=== PATIENT | male | born 1980 | race Caucasian/White ===

== ENCOUNTER 2018-06-25 08:10 | Inpatient (IN) | payer BC, OTHER ==
[~2018-06-25] VITALS: Ht 175.3 cm; Wt 91.9 kg
[2018-06-25] VITALS (17 sets, daily range): BP systolic 90–116; BP diastolic 40–77; PULSE 87–113; RESP 15–32; Ht 175.3 cm; Wt 91.9 kg
[~2018-06-25 08:10] MED LIST: ETOMIDATE 20 MG INJ ONE; SUCCINYLCHOLINE CHLORIDE 100 MG/5 ML SYG IV ONE
[2018-06-25] MEDS ORDERED: NALOXONE (0.4 MG/ML) INJ ONE (08:15)
[2018-06-25] MEDS ORDERED: SOD CHLORIDE 0.9% 1,000 ML IV STA (08:16)
[2018-06-25] MEDS ORDERED: ONDANSETRON 4 MG INJ IV STA (08:16)
[2018-06-25] MEDS ORDERED: LEVETIRACETAM 1000 MG (PMX) 100 ML IVPB STA (08:18)
[2018-06-25] MEDS ORDERED: NALOXONE (0.4 MG/ML) INJ IV ONE (08:30)
[2018-06-25] MEDS ORDERED: LORAZEPAM 2 MG INJ ONE (08:44)
--- NOTE | 2018-06-25 08:57 | ERD ---
ER Documentation Chief Complaint Chief Complaint found altered in garage by spouse HPI This a 38-year-old male who was found by his in the garage unconscious on the floor. It is unknown how long the patient was there. Patient had drug paraphernalia laying around him. The patient was completely unresponsive with pinpoint pupils and he was given Narcan by paramedics. The patient then became a bit more agitated pupils enlarged. EMS reports there was emesis next to him on the floor. There is no other history given. ROS All systems reviewed and are negative except as per history of present illness. Medications Home Meds No Active Prescriptions or Reported Meds Allergies Allergies: Coded Allergies: No Known Allergy (Unverified , 06/25/18) PMhx/Soc Medical and Surgical Hx: Unable to obtain Hx Psychiatric Problems: Yes (anxiety) Hx Alcohol Use: No (unknown) Hx Substance Use: Yes (marijuana) Hx Tobacco Use: No (unknown) Smoking Status: Unknown if ever smoked FmHx Family History: No coronary disease Physical Exam Vitals Vital Signs Date Temp Pulse Resp B/P (MAP) Pulse Ox O2 O2 Flow FiO2 Time Delivery Rate 06/25/18 63 24 137/87 93 Non 15.0 10:02 (104) Rebreather 06/25/18 85.1 77 30 125/40 93 Non 15.0 09:45 (68) Rebreather 06/25/18 85.0 80 32 88/53 (65) 93 09:30 06/25/18 84 32 88/53 (65) 93 Non 15.0 09:30 Rebreather 06/25/18 81 30 151/130 92 Non 15.0 09:00 (137) Rebreather 06/25/18 97.2 63 30 79/67 (71) 100 08:30 06/25/18 Non 15 08:15 Rebreather 06/25/18 Non 15.0 08:15 Rebreather Physical Exam Const: Well-developed, well-nourished Head: Atraumatic, normocephalic Eyes: Normal Conjunctiva, PERRLA, EOMI, normal sclera, no nystagmus ENT: Normal External Ears, Nose and Mouth, moist mucus membranes. Neck: Full range of motion. No meningismus, no lymphadenopathy. Resp: Clear to auscultation bilaterally, no wheezing, rhonchi, rales Cardio: Regular rate and rhythm, no murmurs, S1 S2 present Abd: Soft, non distended. Normal bowel sounds, no pulsitile abdominal masses or bruits Skin: No petechiae or rashes, no ecchymosis , no maculopapular rash Back: Normal inspection] Ext: No cyanosis, or edema, FROM x 3, normal inspection, neurovascularly intact x 4 Neur: Patient has his eyes open and is moaning, his left upper extremity has a rhythmic twitching with his left leg, he is moving his right leg on occasion but his right arm has no movement at all.] Psych: Unable to assess Result Diagram: 06/25/18 0820 06/25/18 0820 Results 24 hrs Laboratory Tests Test 06/25/18 04:21 06/25/18 08:20 06/25/18 09:04 Urine Opiates Screen Positive Urine Barbiturates Negative Urine Amphetamines Screen Negative Urine Benzodiazepines Screen Positive Urine Cocaine Screen Positive Urine Cannabinoids Positive White Blood Count 22.1 10^3/ul Red Blood Count 4.38 10^6/ul Hemoglobin 13.7 g/dl Hematocrit 41.7 % Mean Corpuscular Volume 95.2 fl Mean Corpuscular Hemoglobin 31.3 pg Mean Corpuscular 32.9 g/dl Hemoglobin Concent Red Cell Distribution Width 14.1 % Platelet Count 303 10^3/UL Mean Platelet Volume 10.3 fl Immature Granulocytes % 1.900 % Neutrophils % 82.6 % Lymphocytes % 11.9 % Monocytes % 2.4 % Eosinophils % 0.8 % Basophils % 0.4 % Nucleated Red Blood Cells % 0.0 /100WBC Immature Granulocytes # 0.410 10^3/ul Neutrophils # 18.3 10^3/ul Lymphocytes # 2.6 10^3/ul Monocytes # 0.5 10^3/ul Eosinophils # 0.2 10^3/ul Basophils # 0.1 10^3/ul Nucleated Red Blood Cells # 0.0 10^3/ul Prothrombin Time 14.4 Sec Prothrombin Time Ratio 1.1 INR International 1.10 Normalized Ratio Activated Partial Thromboplast 41.2 Sec Time Sodium Level 142 mmol/L Potassium Level 5.2 mmol/L Chloride Level 100 mmol/L Carbon Dioxide Level 23 mmol/L Anion Gap 19 Blood Urea Nitrogen 21 mg/dl Creatinine 2.05 mg/dl Est Glomerular Filtrat 37 mL/min Rate mL/min Glucose Level 145 mg/dl Calcium Level 8.8 mg/dl Total Bilirubin 0.7 mg/dl Direct Bilirubin 0.00 mg/dl Indirect Bilirubin 0.7 mg/dl Aspartate Amino 88 IU/L Transf (AST/SGOT) Alanine 64 IU/L Aminotransferase (ALT/SGPT) Alkaline Phosphatase 114 IU/L Creatine Kinase 709 IU/L Creatine Kinase Index 1.4 Creatinine Kinase MB (Mass) 10.10 ng/ml Troponin I 0.148 ng/ml Total Protein 7.5 g/dl Albumin 4.5 g/dl Globulin 3.00 g/dl Albumin/Globulin Ratio 1.50 Ethyl Alcohol Level < 10.0 mg/dl Bedside Glucose 140 mg/dL Current Medications Medications Dose Sig/Velia Start Time Status Last (Trade) Ordered Route PRN Stop Time Admin Dose Reason Admin Sodium 1,000 ml @ Q1H STAT 06/25/18 DC 06/25/18 Chloride 1,000 mls/hr IV 08:16 08:42 06/25/18 09:15 Ondansetron 4 mg ONCE STAT 06/25/18 DC 06/25/18 HCl (Zofran IV 08:16 08:42 Inj) 06/25/18 08:19 100 ml @ ONCE STAT 06/25/18 DC 06/25/18 Levetiracetam 400 mls/hr IVPB 08:18 08:52 06/25/18 08:32 Naloxone 0.4 mg ONCE ONCE 06/25/18 DC 06/25/18 HCl IV 08:30 08:39 (Narcan) 06/25/18 08:31 Lorazepam 1 mg ONCE ONCE 06/25/18 DC 06/25/18 (Ativan) IV 09:00 08:52 06/25/18 09:01 Lorazepam 2 mg STK-MED 06/25/18 DC (Ativan) ONCE .ROUTE 08:44 06/25/18 08:45 Clindamycin 50 ml @ 50 ONCE IVPB 06/25/18 06/25/18 HCl/ mls/hr 09:30 09:33 Dextrose 06/25/18 10:29 Lorazepam 1 mg ONCE ONCE 18 DC 06/25/18 (Ativan) IV 09:30 09:23 06/25/18 09:31 Aspirin 300 mg ONCE ONCE 06/25/18 DC 06/25/18 (Aspirin) NV 09:30 09:42 06/25/18 09:31 1 mg STK-MED 06/25/18 DC Hydromorphone ONCE .ROUTE 09:45 HCl 06/25/18 (Dilaudid) 09:46 1 mg ONCE STAT 06/25/18 DC 06/25/18 Hydromorphone IV 09:58 10:02 HCl 06/25/18 (Dilaudid) 09:59 Procedures/MDM EKG: Rate/Rhythm: Normal sinus rhythm with nonspecific intraventricular block QRS, ST, QT: NORMAL NV, QRS, QT] Impression: Abnormal EKG Ordering MD: ARTURO TAYLOR DO Location: E/R Room/Bed: PROCEDURE: CT brain without contrast CLINICAL INDICATION: Stroke, found down, unresponsive TECHNIQUE: CT of the brain without contrast was performed on a multidetector CT scanner, with multiplanar reformats. One or more of the following dose reduction techniques were used: Automated exposure control, adjustment in mA and / or kV according to patient size, use of iterative reconstructive technique. CTDIvol = 46 mGy; DLP = 927 mGy-cm. DICOM images are available. COMPARISON: None available FINDINGS: No acute intracranial hemorrhage is identified. No extra-axial fluid collection is seen. There is no mass effect. No midline shift is identified. The ventricles and sulci are within normal limits for size and configuration. The density of the brain appears unremarkable. Moy-white junctions appear preserved. Calvarium and skull base are intact. Mastoid air cells and imaged paranasal sinuses grossly clear. IMPRESSION: No acute intracranial pathology identified. Critical results called to Dr. Taylor at 08:30 a.m., 06/25/2018. RPTAT: VV .Gaston Lopez MD, MD Date Time Electronically viewed and signed by .Gaston Lopez MD, MD on 06/25/2018 08:31 .O/ CC: ARTURO TAYLOR DO [id number] Patient was given Narcan with some slight improvement. He continued to have rhythmic twitching suspecting a head bleed so a stat head CT was done which showed no head bleed. Possible as patient is having a stroke or is not a TPA candidate because we do not know the onset of process as he was last seen last night and found laying in the garage. He was given Keppra and Ativan for seizure precautions treatment We will give a dose of clindamycin to prevent any type of possible aspiration pneumonia Patient's is now here she said she last saw him yesterday around 10 or 11 PM. Then she found him outside laying in the street by the curb this morning. She said that he had recently gone on a daily vacation and that he was in the garage/"man cave" where she left him last night. When asked about drug use she stated that he has dabbled with cocaine in the past. At the patient's creatinine is too high to do a CT angiogram. His CPK, CK-MB and troponin are elevated which is likely from cocaine use as his drug screen is markedly positive for multi-substance abuse. Troponin may be high from elevated CPK/CK-MB's, or vasospasm from cocaine use. I have given him a rectal aspirin. Hold off on Lovenox at this time due to altered mental status possible stroke it may be risky to anticoagulate him at this time His core body temperature is 85, from laying on the cold concrete street last night for hours. He is currently getting a bear hugger At 10:15 AM the patient is becoming more arousable and is able to say his name, look at you when called, but still a bit agitated. Is seen giving the Dilaudid calmed him down and he was likely super agitated from too much Narcan reversing his opioid use. He is clinically improving Will admit to the ICU panel. Critical Care Time: 45 minutes Treatments/Evaluations: Close monitoring and treatment of unstable vital signs, cardiorespiratory, and neurologic status, while maintaining tight balance of fluid, respiratory, and cardiac interventions. This time includes discussing the case with the patient and the patient's family. This time does not include all procedures stated elsewhere in this record. This time also includes reviewing old records, labs and radiological studies. This time includes examining and re- examining the patient. Additionally, this time also includes arranging care with admitting and consulting physicians. Departure Diagnosis: Primary Impression: Altered level of consciousness Additional Impressions: Non-STEMI (non-ST elevated myocardial infarction) Substance abuse Condition: Serious ARTURO TAYLOR DO Jun 25, 2018 08:57
[2018-06-25] MEDS ORDERED: LORAZEPAM 2 MG INJ IV ONE ×2 (09:00→09:30)
[2018-06-25] MEDS ORDERED: CLINDAMYCIN 900 MG/D5W (PMX) 50 ML IVPB SCH (09:30)
[2018-06-25] MEDS ORDERED: ASPIRIN 300 MG SUPP PR ONE (09:30)
[2018-06-25] MEDS ORDERED: HYDROmorphONE 1 MG/ML SYG ONE (09:45)
[2018-06-25] MEDS ORDERED: HYDROmorphONE 0.5 MG/0.5 ML SYG IV STA (09:58)
[2018-06-25] MEDS ORDERED: SOD CHLORIDE 0.9% 1,000 ML IV SCH ×2 (10:51→14:00)
[2018-06-25] MEDS ORDERED: ONDANSETRON 4 MG INJ IV PRN ×2 (11:00→14:00)
[2018-06-25] MEDS ORDERED: ACETAMINOPHEN 325 MG TAB PO PRN (11:00)
--- NOTE | 2018-06-25 12:05 | NUR ---
RECEIVED FROM ED , SITUATED IN ROOM 105, ASSESSMENT DONE CHARTED.
[2018-06-25] MEDS ORDERED: NA BICARBONATE 8.4% 50 ML SYG IV STA ×2 (13:40→21:28)
[2018-06-25] MEDS ORDERED: ACETAMINOPHEN 650 MG SUPP PR PRN (14:00)
[2018-06-25] MEDS ORDERED: ALBUTEROL 0.083% (NEB) 2.5 MG/3 ML AMP NEB PRN (14:00)
[2018-06-25] MEDS ORDERED: SOD CHLORIDE 0.9% 1,000 ML IV ONE (14:00)
--- NOTE | 2018-06-25 14:00 | CONS ---
Date/Time of Note Date/Time of Note DATE: 06/25/18 TIME: 13:53 Assessment/Plan Assessment/Plan Chief Complaint/Hosp Course Assessment: Mildly elevated troponin - likely type 2 NSTEMI versus rhabdomyolysis Abnormal EKG - nonspecific intraventricular conduction delay Polysubstance abuse - urine toxicology positive for opiates, benzodiazepines, cocaine, cannabinoids Acute metabolic encephalopathy Acute hypoxic respiratory failure Probable aspiration Acute kidney injury Mild rhabdomyolysis Leukocytosis Hypothermia Recommendations: -serial troponins and EKGs -transthoracic echocardiogram Consultation Date/Type/Reason Admit Date/Time Jun 25, 2018 at 10:52 Type of Consult Cardiology Reason for Consultation elevated troponin Hx of Present Illness The patient is a 37 year-old male who was found unconscious on the floor in the garage by his . It is unknown how long he was down on the floor. He was noted to have drug paraphernalia laying around him. Upon arrival, paramedics noted that the patient had pinpoint pupils and administered Narcan. He then became agitated and had emesis. Currently, the patient is altered and unable to provide any additional history. Unable to obtain review of systems due to patient's altered mental status. Past Medical History Unable to obtain Medications Current Medications Sodium Chloride 1,000 ml @ 1,000 mls/hr Q1H ONCE IV ; Start 06/25/18 at 14:00; Stop 06/25/18 at 14:59 Sodium Chloride 1,000 ml @ 125 mls/hr Q8H IV ; Start 06/25/18 at 14:00 Allergies: Coded Allergies: No Known Allergy (Unverified , 06/25/18) Past Surgical History Unable to obtain Family History Significant Family History: other (unable to obtain) Social History Smoking Status: Unknown if ever smoked Exam/Review of Systems Vital Signs Vitals Vital Signs Date Temp Pulse Resp B/P (MAP) Pulse Ox O2 O2 Flow FiO2 Time Delivery Rate 06/25/18 90 12:11 06/25/18 88.1 15 92/68 (76) 85 Non 12:02 Rebreather 06/25/18 15.0 11:41 Exam Constitutional: No alert, No oriented Psych: confusion; No nl mood/affect Head: normocephalic, atraumatic Eyes: nl conjunctiva, nl lids ENMT: nl external ears & nose, nl nasal mucosa & septum Neck: supple, non-tender Respiratory: crackles/rales, diminished breath sounds Cardiovascular: regular rate and rhythm Gastrointestinal: soft, non-tender Musculoskeletal: nl extremities to inspection Extremities: No cyanosis, No clubbing, No edema Neurological: No nl mental status, No nl speech IRVIN COLLAZO MD Jun 25, 2018 14:00
[2018-06-25] MEDS: PIPER-TAZO 3.375 GM IV (PMX) 100 ML IVPB SCH ×2 (14:29→23:15)
--- NOTE | 2018-06-25 15:27 | HP ---
Date/Time of Note Date/Time of Note DATE: 06/25/18 TIME: 15:07 Assessment/Plan VTE Prophylaxis Pharmacological prophylaxis: LMWH Lines/Catheters IV Catheter Type (from Nrs): Saline Lock Urinary Cath still in place: Yes Reason Cath still needed: other (indicate) Assessment/Plan Assessment/Plan 37 yo M found unresponsive outside his home garage managed in ICU as follows: 1. Acute encephalopathy with aute RUE paresis -toxic metabolic r/o HIE -multiple substances including cocaine / BZD / THC in urine drug screen -responded to narcan by EMS -very drowsy, lethargic and confused at this time -patient likely has suffered neurologic insult, CT brain negative, needs MRI when more stable 2. Resp failure -currently on face mask, would benefit from bipap but d/t confusion cannot ke ep it on -if acidosis persists, will need to be intubated 3. Renal failure -acute, ?ATN from drugs versus severe dehydration -fluid hydration / renal USS / nephro consult 4. Severe hypothermia -warming measures 5. Metabolic acidosis -2/2 renal failure and drugs, fluids, bicarb , trend abg and labs 6. Rhabdomyolysis -fluids 7. Hyperkalemia -no EKG changes -repeat levels at this time, intervene with cocktail if indicated 8. Sepsis with roz Pneumonia, ?aspiration -blood cultures / empiric abx 9. Elevated troponins vs NSTEMI -trend / asa / cardio consult / echo 10. Multisubstance abuse -will need counselling if / when mentation improves Prophylaxis: Pepcid / lovenox Further evaluation and treatment will be based on clinical course Full discussion with care team done. All questions Answered Please also see orders. HPI/ROS Admit Date/Time Admit Date/Time Jun 25, 2018 at 10:52 Hx of Present Illness The patient is a 37 year-old male who was found unconscious on the floor in the garage by his this morning. It is unknown how long he was down on the floor . Last time she had seen him was 10pm the previous night. He works in the [employer] industry and usually is out at night. He was noted to have drug paraphernalia laying around him. Upon arrival, paramedics noted that the patient had pinpoint pupils and administered Narcan. He then became agitated and had emesis. he is noted not to move his RUE and is severely hypothermic amongst other things. Currently, the patient is altered and unable to provide any additional history. Unable to obtain review of systems due to patient's altered mental status. ROS Subjective hx not possible: pt non-verbal Psychological: confusion; No nl mood/affect PMH/Family/Social Past Medical History Medical History: no pertinent history Coded Allergies: No Known Allergy (Unverified , 06/25/18) Past Surgical History Past Surgical Hx: no surgical history Family History Significant Family History: no pertinent family hx, other (unable to obtain) Social History Alcohol Use: occasionally Smoking Status: Unknown if ever smoked Drug Use: cocaine, marijuana Exam/Review of Systems Vital Signs Vitals Vital Signs Date Temp Pulse Resp B/P (MAP) Pulse Ox O2 O2 Flow FiO2 Time Delivery Rate 06/25/18 90 12:11 06/25/18 88.1 15 92/68 (76) 85 Non 12:02 Rebreather 06/25/18 15.0 11:41 Exam Exam GENERAL: confused, lethargic / drowsy ++, will open eyes, does not follow commands or tracks HEENT: EDMOND, mild bleeding from nsal orifices, face mask LUNGS: diffusely diminished and coarse BS HEART: S1, S2. No murmur, gallops or rubs. Tachycardic ABDOMEN: Soft, mildly distended, hypoactive bowel sounds. GENITOURINARY: Normal male external genitalia, Potter to bedside drainage, dark reduced urine output EXTREMITIES: No LE edema bilaterally, NEUROLOGIC: NO movement noted in RUE, patient moves all other extremities SKIN: Otherwise, unremarkable. Medications Medications Current Medications Sodium Chloride 1,000 ml @ 125 mls/hr Q8H IV Last administered on 06/25/18at 14:25; Admin Dose 125 MLS/HR; Start 06/25/18 at 14:00 Ondansetron HCl (Zofran Inj) 4 mg Q6H PRN IV NAUSEA AND/OR VOMITING; Start 06/25/18 at 14:00 Albuterol (Proventil 0.083% (Neb)) 2.5 mg Q2H RESP THERAPY PRN NEB SHORTNESS OF BREATH; Start 06/25/18 at 14:00 Acetaminophen (Tylenol Supp) 650 mg Q4H PRN [place] PAIN LEVEL 1-3 OR FEVER; Start 06/25/18 at 14:00 Lorazepam (Ativan) 1 mg Q2H PRN IV ANXIETY; Start 06/25/18 at 14:00 Famotidine (Pepcid Iv) 20 mg Q12 IV ; Start 06/25/18 at 21:00 Enoxaparin Sodium (Lovenox) 40 mg DAILY SC ; Start 06/26/18 at 09:00 Piperacillin Sod/ Tazobactam Sod 100 ml @ 200 mls/hr Q8 IVPB Last administered on 06/25/18at 14:29; Admin Dose 200 MLS/HR; Start 06/25/18 at 14:00 Aspirin (Aspirin) 300 mg DAILY [place] ; Start 06/26/18 at 09:00 Results Result Diagram: 06/25/18 0820 06/25/18 0820 Results 24 hrs Laboratory Tests Test 06/25/18 04:21 06/25/18 08:20 06/25/18 09:04 06/25/18 12:48 Urine Opiates Positive Screen Urine Negative Barbiturates Urine Negative Amphetamines Screen Urine Positive Benzodiazepines Screen Urine Cocaine Positive Screen Urine Positive Cannabinoids White Blood 22.1 H Count Red Blood Count 4.38 L Hemoglobin 13.7 L Hematocrit 41.7 L Mean 95.2 Corpuscular Volume Mean 31.3 Corpuscular Hemoglobin Mean 32.9 Corpuscular Hemoglobin Conc ent Red Cell 14.1 Distribution Width Platelet Count 303 Mean Platelet 10.3 Volume Immature 1.900 H Granulocytes % Neutrophils % 82.6 H Lymphocytes % 11.9 L Monocytes % 2.4 Eosinophils % 0.8 Basophils % 0.4 Nucleated Red 0.0 Blood Cells % Immature 0.410 H Granulocytes # Neutrophils # 18.3 H Lymphocytes # 2.6 Monocytes # 0.5 Eosinophils # 0.2 Basophils # 0.1 Nucleated Red 0.0 Blood Cells # Prothrombin 14.4 Time Prothrombin 1.1 Time Ratio INR 1.10 International Normalized Rati o Activated 41.2 H Partial Thrombo plast Time Sodium Level 142 Potassium Level 5.2 H Chloride Level 100 Carbon Dioxide 23 Level Anion Gap 19 H Blood Urea 21 H Nitrogen Creatinine 2.05 H Est Glomerular 37 L Filtrat Rate mL/min Glucose Level 145 Calcium Level 8.8 Total Bilirubin 0.7 Direct 0.00 Bilirubin Indirect 0.7 Bilirubin Aspartate Amino 88 H Transf (AST/SGO T) Alanine 64 Aminotransferas e (ALT/SGPT) Alkaline 114 Phosphatase Creatine Kinase 709 H Creatine Kinase 1.4 Index Creatinine 10.10 H Kinase MB (Mass) Troponin I 0.148 *H Total Protein 7.5 Albumin 4.5 Globulin 3.00 Albumin/Globuli 1.50 n Ratio Ethyl Alcohol < 10.0 H Level Bedside Glucose 140 Blood Gas Blood arterial Specimen Source Arterial Blood 06/25/2018 12:4 Date Drawn 0:47 PM Arterial Blood 7.144 *L pH (Temp corrected ) Arterial Blood 61.6 H pCO2 (Temp correct) Arterial Blood 78.5 L pO2 (Temp corrected ) Arterial Blood 20.7 L HCO3 Arterial Blood -9.3 L Base Excess Arterial Blood 93.8 L Oxygen Saturati on Reynaldo Test ACCEPTAB Arterial Blood Right Radial Gas Puncture Site Arterial 0.9 Blood Carboxyhe moglobin Arterial Blood 0.2 Methemoglobin Blood Gas A-a 572.9 H O2 Differential Oxyhemoglobin 92.8 L Percent Blood Gas 37.0 Temperature Blood Gas MASK - NRB Modality FiO2 100.0 Blood Gas MARLENY GILES Critical Value Read Back Blood Gas Notified Whom Blood Gas 06/25/2018 1:01 Notified Time :59 PM Imaging PROCEDURE: CT brain without contrast CLINICAL INDICATION: Stroke, found down, unresponsive TECHNIQUE: CT of the brain without contrast was performed on a multidetector CT scanner, with multiplanar reformats. One or more of the following dose reduction techniques were used: Automated exposure control, adjustment in mA and / or kV according to patient size, use of iterative reconstructive technique. CTDIvol = 46 mGy; DLP = 927 mGy-cm. DICOM images are available. COMPARISON: None available FINDINGS: No acute intracranial hemorrhage is identified. No extra-axial fluid collection is seen. There is no mass effect. No midline shift is identified. The ventricles and sulci are within normal limits for size and configuration. The density of the brain appears unremarkable. Moy-white junctions appear preserved. Calvarium and skull base are intact. Mastoid air cells and imaged paranasal sinuses grossly clear. IMPRESSION: No acute intracranial pathology identified. Critical results called to Dr. Farrar at 08:30 a.m., 06/25/2018. RPTAT: VV .Gaston Lopez MD, MD Date Time Electronically viewed and signed by .Gaston Lopez MD, MD on 06/25/2018 08:31 .O/ CC: ARTURO FARRAR DO [id number] ____ PROCEDURE: XR Chest. CLINICAL INDICATION: CVA TECHNIQUE: Single frontal view of the chest was obtained COMPARISON: None FINDINGS: The heart and mediastinum are within normal limits. There are patchy bilateral upper lobe and right perihilar infiltrates. There is no pleural effusion or pneumothorax. RPTAT: AA IMPRESSION: Patchy bilateral upper lobe and right perihilar infiltrates. .Evan Read MD, MD Date Time Electronically viewed and signed by .Evan Read MD, MD on 06/25/2018 0 9:12 .S/ CC: ARTURO FARRAR DO [id number] JOSIAS HUANG Jun 25, 2018 15:17
[2018-06-25] MEDS ORDERED: CA CHLORIDE 10% 10 ML SYRINGE IV ONE (15:30)
--- NOTE | 2018-06-25 16:37 | QN ---
Documentation Comment abg is worse. ph 7.0 er md to intubate patient. JOSIAS HUANG Jun 25, 2018 16:37
--- NOTE | 2018-06-25 16:59 | QN ---
Documentation Comment Endotracheal Intubation by me: Pre assessment performed. Pre-oxygenation performed with 100% oxygen RSI: Performed w/o complication or hypoxic events. Medications as ordered. Blade: MAC 4 video laryngoscope ET Tube: 7.5 cm Depth: 25 cm at the lip Intubation confirmed by colorimetric CO2, equal breath sounds, quiet over the stomach. Chest x-ray pending. TOMÁS NARAYAN MD Jun 25, 2018 16:59
--- NOTE | 2018-06-25 17:06 | CONS ---
Date/Time of Note Date/Time of Note DATE: 06/25/18 TIME: 16:57 Assessment/Plan Assessment/Plan Chief Complaint/Hosp Course Assessment: Epistaxis Status post possible cardiopulmonary arrest Encephalopathy Multisubstance abuse Elevated troponins Respiratory failure Plan: Observe for upper GI bleeding Continue Protonix Monitor H&H Transfuse for hemoglobin less than 7.5 Patient seen in collaboration with Consultation Date/Type/Reason Admit Date/Time Jun 25, 2018 at 10:52 Date of Consultation: Jun 25, 2018 Type of Consult GI Reason for Consultation Epistaxis Hx of Present Illness This is a 37-year-old male who was found unresponsive in his garage, family administered CPR and when paramedics came patient had a pulse. Patient was lethargic and encephalopathic on admission. Patient was transferred to ICU and intubated for respiratory acidosis. GI was consulted for what appeared as upper GI bleeding however upon suctioning gastric contents there is no blood present. Bleeding is likely due to epistaxis. Hemoglobin is stable 13. There is no evidence of vomiting, hematemesis, hematochezia, diarrhea or abdominal pain. Supportive treatment. Continue monitoring for GI bleeding. Protonix for gastric protection. Gastrointestinal: no complaints (See HPI) Past Medical History Medical History: no pertinent history Medications Current Medications Sodium Chloride 1,000 ml @ 125 mls/hr Q8H IV Last administered on 06/25/18at 14:25; Admin Dose 125 MLS/HR; Start 06/25/18 at 14:00 Ondansetron HCl (Zofran Inj) 4 mg Q6H PRN IV NAUSEA AND/OR VOMITING; Start 06/25/18 at 14:00 Albuterol (Proventil 0.083% (Neb)) 2.5 mg Q2H RESP THERAPY PRN NEB SHORTNESS OF BREATH; Start 06/25/18 at 14:00 Acetaminophen (Tylenol Supp) 650 mg Q4H PRN ND PAIN LEVEL 1-3 OR FEVER; Start 06/25/18 at 14:00 Lorazepam (Ativan) 1 mg Q2H PRN IV ANXIETY; Start 06/25/18 at 14:00 Piperacillin Sod/ Tazobactam Sod 100 ml @ 200 mls/hr Q8 IVPB Last administered on 06/25/18at 14:29; Admin Dose 200 MLS/HR; Start 06/25/18 at 14:00 Pantoprazole 80 mg/Sodium Chloride 100 ml @ 10 mls/hr Q10H IV ; Start 06/25/18 at 18:00 Allergies: Coded Allergies: No Known Allergy (Unverified , 06/25/18) Past Surgical History Past Surgical Hx: no surgical history Social History Alcohol Use: occasionally Smoking Status: Unknown if ever smoked Drug Use: cocaine, marijuana Exam/Review of Systems Vital Signs Vitals Vital Signs Date Temp Pulse Resp B/P (MAP) Pulse Ox O2 O2 Flow FiO2 Time Delivery Rate 06/25/18 96 16:01 06/25/18 97.1 22 103/59 Non 16:00 (74) Rebreather 06/25/18 85 12:02 06/25/18 15.0 11:41 Exam PHYSICAL EXAMINATION: GENERAL: Well developed, obese, sedated on the ventilator, in no acute distress SKIN: No lesions, no stigmata chronic liver disease, no evidence of bleeding diathesis LYMPHATIC: No palpable lymphadenopathy. HEAD: Normocephalic, atraumatic, no tenderness. EYES: Pupils equal reactive to light and accommodation, full extraocular movements, sclera clear, non-icteric, no discharge. EARS/NOSE AND THROAT: Ears normal, nose normal, oropharynx normal, oral membranes well hydrated without lesions. NG tube in place to low intermittent suction draining nonbloody gastric contents. NECK: Supple, no masses, thyroid normal, JVP within normal limits, carotids n ormal without bruits. CHEST: Inspection within normal limits. CARDIOVASCULAR: Heart: Regular rate and rhythm, no murmurs, gallops or rubs. Peripheral pulses present within normal limits, no cyanosis, clubbing or edemas. No pulsatile abdominal mass RESPIRATORY: Lungs clear to auscultation and percussion, no wheezing, no rubs GASTROINTESTINAL AND LIVER: Abdomen: Soft, non tenderness, non-distended, no hernias, no masses, no organomegaly, no ascites, no guarding, no rebound tenderness, normoactive bowel sounds. Rectal: Deferred. GENITOURINARY: [Male genitalia within normal limits. Potter in place. EXTREMITIES: No cyanosis, clubbing or edema. Copies To: CC: ; CAROLYN CROWLEY NP Jun 25, 2018 17:06
[2018-06-25] MEDS: PANTOPRAZOLE IV 80 MG in SOD CHLORIDE 0.9% 100 ML IV SCH (17:19)
[2018-06-25] MEDS: LORAZEPAM 4 MG/ML VIAL IV PRN ×2 (17:34→21:21)
[2018-06-25] MEDS: FENTAnyl (DRIP) 1000 mcg/100mL 100 ML IV SCH (18:44)
[2018-06-25] MEDS ORDERED: FUROSEMIDE 40 MG INJ IV ONE (19:00)
--- NOTE | 2018-06-25 19:00 | NUR ---
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 HYPOTHERMIC @ 88.1 DEGREES--> PLACED ON DEREK HUGGER WITH EFFECT, LAST TEMP TAKEN WAS 97.[address] HUANG AWARE OF R ARM SEVERE WEAKNESS. HAD FROTHY SECRETIONS FROM [facility] --> NGT INSERTED WITH SCANT COFFEE-GROUND MATERIAL BUT NO FROTHY SECRETIONS CAME OUT OF NGT. LOW U.O. , NS 1L ADMINISTERED, MAINTENANCE IVF STARTED--> DR GOTTI CONSULTED, DR COLLAZO DOOR GLASS INSTALLER ONBOARD. UA SENT TO LAB. 2D-ECHO DONE AND RENAL ULTRASOUND DONE. COPIOUS FROTHY REDDISH SECRETIONS FROM [facility] --> LASIX GIVEN PER DR NARAYAN. HAD LIQUID WATERY STOOL-> RECTAL TUBE PLACED AND SPECIMEN SENT TO LAB. ALSO STARTED ON PROTONIX DRIP. SEEN NGT OUT AT END OF SHIFT-> ATTEMPTED TO INSERT EVEN ON FENTANYL DRIP BUT PT SHAKES HEAD VIGOROUSLY FROM [id number]. O2 SAT BETTER =/>88% on AC 20, 700 100 % , PEEP8 . LEFT SOFT WRIST RESTRAINT APPLIED, MADE FAMILY AWARE OF ITS NEED, VERBALIZED UNDERSTANDING. ENDORSED FOR CONTINUED CARE.
[2018-06-25] MEDS ORDERED: FAMOTIDINE 20 MG INJ IV SCH (21:00)
[2018-06-25] MEDS: SODIUM BICARBONATE (IV ADD) 100 MEQ in SOD CHLORIDE 0.45% 900 ML IV SCH (23:15)
[2018-06-25] MEDS: MIDAZOLAM (DRIP) 50 mg/50 mL 50 ML IV SCH (23:40)
[2018-06-26] VITALS (48 sets, daily range): BP systolic 83–114; BP diastolic 50–68; PULSE 94–109; RESP 6–23
[2018-06-26] MEDS: LORAZEPAM 4 MG/ML VIAL IV PRN ×5 (01:02→19:50)
[2018-06-26] MEDS: PANTOPRAZOLE IV 80 MG in SOD CHLORIDE 0.9% 100 ML IV SCH ×2 (03:23→12:56)
[2018-06-26] MEDS: FENTAnyl (DRIP) 1000 mcg/100mL 100 ML IV SCH ×2 (03:25→13:40)
[2018-06-26] MEDS: PIPER-TAZO 3.375 GM IV (PMX) 100 ML IVPB SCH ×3 (05:59→22:26)
[2018-06-26] MEDS: MIDAZOLAM (DRIP) 50 mg/50 mL 50 ML IV SCH ×3 (06:55→18:34)
[2018-06-26] MEDS: SODIUM BICARBONATE (IV ADD) 100 MEQ in SOD CHLORIDE 0.45% 900 ML IV SCH ×3 (06:55→16:02)
[2018-06-26] MEDS ORDERED: ENOXAPARIN 40 MG/0.4 ML SYG SC SCH (09:00)
[2018-06-26] MEDS ORDERED: ASPIRIN 300 MG SUPP PR SCH (09:00)
--- NOTE | 2018-06-26 09:00 | PN ---
Date/Time of Note Date/Time of Note DATE: 06/26/18 TIME: 08:52 Assessment/Plan VTE Prophylaxis Risk score (from Ns)>0 risk: 1 SCD applied (from Ns): Yes Pharmacological prophylaxis: LMWH Lines/Catheters IV C[facility]ter Type (from [facility]): Peripheral IV Urinary Cath still in place: Yes Reason Cath still needed: other (indicate) (Acute kidney injury) Assessment/Plan Problems: (1) Respiratory failure with hypoxia and hypercapnia Status: Acute Comment: Patient is stable on ventilatory support and pulmonary is assisting with this. Please note his chest x-ray is not normal and shows evidence of aspiration pneumonia and may he may also show onset of adult respiratory distress syndrome. Careful support as we are not yet at the worst point in his decline Qualifiers: Chronicity: acute Qualified Codes: J96.01 - Acute respiratory failure with hypoxia; J96.02 - Acute respiratory failure with hypercapnia (2) Sepsis Status: Acute Comment: On aggressive antibiotic support. Qualifiers: Sepsis type: sepsis due to unspecified organism Qualified Codes: A41.9 - Sepsis, unspecified organism (3) Pneumonia Status: Acute Comment: On aggressive antibiotic support. Qualifiers: Pneumonia type: due to unspecified organism Laterality: bilateral Lung location: upper lobe of lung Qualified Codes: J18.1 - Lobar pneumonia, unspecified organism (4) Altered mental status Status: Acute Comment: As evidenced on his tox screen, he had issues that led to him being found down. Presently he is deliberately on some medications to keep him calm and sedated. We will see what his ultimate recovery is as were not sure whether or not he had a hypoxemic central nervous system insult Qualifiers: Altered mental status type: unspecified Qualified Codes: R41.82 - Altered mental status, unspecified (5) Substance abuse Status: Acute Comment: Depending upon his medical recovery he will the need to be referred for other services as an outpatient I would actually consider inpatient rehab facility. We will also have to watch for detox here although given how we have him sedated I think will be in a relatively stable set up for that (6) Rhabdomyolysis Status: Acute Comment: He still has not peaked although I suspect were at the peaking point now. He is receiving some IV fluids however given the already has the renal insufficiency and the pulmonary issues will have to be somewhat careful about this. Qualifiers: Rhabdomyolysis type: traumatic Encounter type: initial encounter Qualified Codes: T79.6XXA - Traumatic ischemia of muscle, initial encounter (7) Acute kidney injury Status: Acute Comment: We have no way of getting a baseline serum creatinine on him but he is clearly getting worse. I suspect that this is due to his rhabdomyolysis. Nephrology is on the case. I have a fear that we will be needing to do dialysis within 3-5 days (8) Hypothermia associated with environmental change Status: Resolved Comment: Fortunately resolved (9) Crutch palsy of right upper extremity Status: Acute Comment: At this moment I cannot examine for this but this is noted in the records. This is undoubtedly due to have being down and he has either direct muscle injury or muscle and nerve injury to the right upper extremity we will see how he recovers Qualifiers: Encounter type: initial encounter Qualified Codes: S14.3XXA - Injury of brachial plexus, initial encounter (10) Non-STEMI (non-ST elevated myocardial infarction) Status: Acute Comment: Concur with cardiology evaluation Subjective 24 Hr Interval Summary Free Text/Dictation Patient at this time is unresponsive but is on both fentanyl and Versed drip. Subjective hx not possible: pt non-verbal, pt critical status Exam/Review of Systems Vital Signs Vitals Vital Signs Date Temp Pulse Resp B/P (MAP) Pulse Ox O2 O2 Flow FiO2 Time Delivery Rate 06/26/18 101 18 106/52 100 Mechanical 06:00 (70) Ventilator 06/26/18 100 05:23 06/26/18 99.0 04:45 06/25/18 15.0 11:41 Intake and Output 06/25/18 06/25/18 06/26/18 1515:00 23:00 07:00 IntakeIntake Total 1225 ml 975 ml 1231 ml OutputOutput Total 585 ml 895 ml 350 ml BalanceBalance 640 ml 80 ml 881 ml Exam In soft restraints Constitutional: non-verbal ENMT: intubated Neck: supple, non-tender Respiratory: normal air movement, crackles/rales (Diffusely) Cardiovascular: regular rate and rhythm, nl pulses Gastrointestinal: soft, nl liver, spleen, non-tender GUANAKITO BUSCH MD Jun 26, 2018 09:00
--- NOTE | 2018-06-26 09:09 | CONS ---
Date/Time of Note Date/Time of Note DATE: 06/26/18 TIME: 09:05 Assessment/Plan Assessment/Plan Additional Assessment/Plan Chest x-ray showing bilateral pneumonia. Endotracheal tube is at the level of beth. Patient is currently on Versed 10 mg/h, fentanyl 100 mics per hour. Sodium bicarbonate drip. Assessment recommendations; 1 patient admitted with respiratory failure due to drug drug overdose causing bilateral aspiration pneumonia with rhabdomyolysis causing acute renal failure. 2. Shock liver. Continue on supportive care. Ventilator settings have been adjusted. Obtain follow-up chest x-ray 24 hours. Discontinue Protonix drip. There is no evidence of any upper GI bleed. Monitor renal function. Nephrology consult is appreciated. Monitor LFTs. Endotracheal tube to be pulled out by 2 cm. I did have a detailed discussion with the patient's aunt at bedside answered all her questions. 40 minutes of critical care time was spent evaluating the patient. Consultation Date/Type/Reason Admit Date/Time Jun 25, 2018 at 10:52 Date of Consultation: Jun 26, 2018 Type of Consult Pulmonary/critical care History of presenting illness; patient is a 37-year-old male who was brought into the hospital yesterday after he was found down outside his house. The patient did have a pulse and apparently a very brief CPR was done with revival of vital signs. The patient was then transferred to hospital and then subsequently transferred to ICU where he required intubation last evening. By the time I saw the patient, patient is orally intubated and sedated. History was obtained from medical records as well as from patient's aunt who was present in the room. According to the aunt, patient was found outside of their house slumped over without any prior known illness. Patient apparently took some illicit drugs. Past medical history; next 1. No medical history. Current medications; reviewed. Allergies; none. Social history; positive for smoking and drug abuse. Family history; patient is , has a supportive family and . 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 Review of system; unable to be obtained. General exam; young male, orally intubated, sedated, currently no distress. Past Medical History Medical History: no pertinent history Medications Current Medications Ondansetron HCl (Zofran Inj) 4 mg Q6H PRN IV NAUSEA AND/OR VOMITING; Start 06/25/18 at 14:00 Albuterol (Proventil 0.083% (Neb)) 2.5 mg Q2H RESP THERAPY PRN NEB SHORTNESS OF BREATH; Start 06/25/18 at 14:00 Acetaminophen (Tylenol Supp) 650 mg Q4H PRN [place] PAIN LEVEL 1-3 OR FEVER Last administered on 06/26/18at 04:00; Admin Dose 650 MG; Start 06/25/18 at 14:00 Lorazepam (Ativan) 1 mg Q2H PRN IV ANXIETY Last administered on 06/26/18at 03:47; Admin Dose 1 MG; Start 06/25/18 at 14:00 Piperacillin Sod/ Tazobactam Sod 100 ml @ 200 mls/hr Q8 IVPB Last administered on 06/26/18at 05:59; Admin Dose 200 MLS/HR; Start 06/25/18 at 14:00 Pantoprazole 80 mg/Sodium Chloride 100 ml @ 10 mls/hr Q10H IV Last administered on 06/26/18at 03:23; Admin Dose 10 MLS/HR; Start 06/25/18 at 18:00 Fentanyl 100 ml @ 2.5 mls/hr TITRATE IV Last administered on 06/26/18at 03:25; Admin Dose 10 MLS/HR; Start 06/25/18 at 17:30 Sodium Bicarbonate 100 meq/Sodium Chloride 1,000 ml @ 125 mls/hr Q8H IV Last administered on 06/26/18at 08:25; Admin Dose 125 MLS/HR; Start 06/25/18 at 22:00 Midazolam HCl 50 ml @ 1 mls/hr TITRATE IV Last administered on 06/26/18at 06:55; Admin Dose 10 MLS/HR; Start 06/25/18 at 23:00 Allergies: Coded Allergies: No Known Allergy (Unverified , 06/25/18) Past Surgical History Past Surgical Hx: no surgical history Social History Alcohol Use: occasionally Smoking Status: Unknown if ever smoked Drug Use: cocaine, marijuana Exam/Review of Systems Vital Signs Vitals Vital Signs Date Temp Pulse Resp B/P (MAP) Pulse Ox O2 O2 Flow FiO2 Time Delivery Rate 06/26/18 101 18 106/52 100 Mechanical 06:00 (70) Ventilator 06/26/18 100 05:23 06/26/18 99.0 04:45 06/25/18 15.0 11:41 Intake and Output 06/25/18 06/25/18 06/26/18 1515:00 23:00 07:00 IntakeIntake Total 1225 ml 975 ml 1231 ml OutputOutput Total 585 ml 895 ml 350 ml BalanceBalance 640 ml 80 ml 881 ml Exam HEENT exam; supple neck, no JVD. No lymphadenopathy. Midline trachea. No thyromegaly. Orally intubated. Patient has good dentition. No neck masses. Pupils are small bilaterally. Chest exam; diminished breath sounds bilaterally. S1-S2 audible, no murmurs. Regular rhythm. Abdomen exam; soft, no organomegaly. Bowel sounds audible. Nondistended. Extremity exam; edema clubbing. Pulses 2+. LIBRARY MEDIA SPECIALIST exam; patient is sedated. DERREK ALBERT Jun 26, 2018 09:09
[2018-06-26] MEDS: LEVOFLOXACIN 250MG/D5W (PMX) 50 ML IVPB SCH (10:05)
--- NOTE | 2018-06-26 13:16 | PN ---
DATE: 06/26/2018 SUBJECTIVE: The patient overnight was intubated due to respiratory distress. The patient's urinary output has been adequate. The patient was noted to be agitated. There have been no reports of any h emoptysis, hematemesis or hematochezia. OBJECTIVE: VITAL SIGNS: Blood pressure is 106/52, respiration 18, pulse 101, temperature 99.6. I's AND O'S: The patient had 3 liters in with 1.8 liters out. HEENT: Head is normocephalic. NECK: Supple. HEART: Regular rate. LUNGS: Show diminished breath sounds at the base. ABDOMEN: Soft, nontender to palpation without rebound or guarding. EXTREMITIES: Negative for clubbing, cyanosis, no edema. DERMATOLOGIC: No rashes. MUSCULOSKELETAL: No joint effusions. NEUROLOGIC: The patient is currently intubated and sedated. LABORATORY DATA: Shows urinalysis with a protein creatinine ratio of approximately 100 mg/g creatini ne, FENa greater than 1%, a urinalysis that shows +2 hemoglobin, but otherwise bland. Sodium 144, po tassium 4.8, chloride 108, bicarbonate 20, BUN 41, creatinine 3.05. White count is 13.6, hemoglobin 12.3, platelet count is 197. The patient's ABG shows pH 7.266, pCO2 of 43. The patient has access o f -7.6, calcium 7.7, phosphorus 5.8. IMAGING: The patient's renal ultrasound shows slightly echogenic kidneys consistent with medical yanet al disease, no hydronephrosis. ASSESSMENT AND PLAN: This is a 37-year-old male who presents with: 1. Nonoliguric acute kidney injury with a previously unknown baseline creatinine. Etiology is likel y secondary to ATN due to pigment-associated acute kidney injury from rhabdomyolysis, ischemic hypope rfusion, nephrotoxicity from polysubstance abuse. The patient currently is in injury phase of ATN. Urinary output has been adequate. Creatinine continues to increase, currently at 3.05 mg/dL. Recomm endation is to continue aggressive IV hydration to treat underlying rhabdomyolysis. Continue to sridevi tor CK levels. Continue IV antibiotics to treat underlying sepsis. Will continue supportive care, r enally dose meds, avoid nephrotoxins. No indication for renal replacement therapy at this time. 2. Rhabdomyolysis. The patient's CK levels are greater than 43,000. Continue aggressive IV hydrati on. Will continue bicarbonate drip. We will monitor serial CK levels. Monitor calcium, phosphorus and potassium levels closely. 3. Anemia. Monitor H and H levels. 4. Mineral bone disorder. The patient is hyperphosphatemic secondary to acute kidney injury, rhabdo myolysis. Will continue to monitor. 5. Lactic acidosis secondary to sepsis, hemodynamics. Lactic acid levels have improved. Continue I V hydration, antibiotic therapy. 6. Ventilator-dependent respiratory failure. Vent settings and ABG was reviewed. Continue to monit or. Follow up with pulmonary. 7. Sepsis secondary to bilateral pneumonia. Continue current treatment plan. 8. Acute encephalopathy. Etiology is secondary to polysubstance abuse, toxic metabolic. Continue t o monitor. 9. Hyperkalemia secondary to acute kidney injury and rhabdomyolysis, resolved. 10. Elevated troponin, possibly due to demand ischemia. Continue current treatment plan. 11. Polysubstance abuse. Please note, I spent over 30 minutes of critical care time with this patient. Dictated By: UMAIR VALDEZ/NTS Conf#: [id number] DID#: [id number] CC: JOSIAS HUANG MD;*EndCC*
--- NOTE | 2018-06-26 15:19 | PN ---
Date/Time of Note Date/Time of Note DATE: 06/26/18 TIME: 15:12 Assessment/Plan VTE Prophylaxis Risk score (from Nsg)>0 risk: 1 SCD applied (from Nsg): Yes Pharmacological prophylaxis: heparin Lines/Catheters IV Catheter Type (from Nrsg): Peripheral IV Urinary Cath still in place: Yes Reason Cath still needed: other (indicate) (I and O) Assessment/Plan Hospital Course Assessment: Epistaxis Pneumonitis/shock liver ALIYAH Rhabdomyolysis Pulmonary edema Status post possible cardiopulmonary arrest Encephalopathy Multisubstance abuse Elevated troponins Respiratory failure Plan: DC Protonix drip Start Protonix twice daily Hepatitis serology Autoimmune panel Observe for upper GI bleeding Continue Protonix Monitor LFTs Monitor H&H Transfuse for hemoglobin less than 7.5 Patient seen in collaboration with Subjective: Patient remains intubated and sedated on Versed and fentanyl drip. Transaminitis noted likely due to shock liver. No evidence of GI bleeding. Rectal bag draining light brown stool. Will DC Protonix drip. Start on Protonix twice daily. Continue observation. PHYSICAL EXAMINATION: GENERAL: Well developed, well nourished, intubated on the ventilator, sedated, bilateral upper extremity restraints, in no acute distress SKIN: No lesions, no stigmata chronic liver disease, no evidence of bleeding diathesis LYMPHATIC: No palpable lymphadenopathy. HEAD: Normocephalic, atraumatic, no tenderness. EYES: Pupils equal reactive to light and accommodation, full extraocular movements, sclera clear, non-icteric, no discharge. EARS/NOSE AND THROAT: Ears normal, nose normal, oropharynx normal, oral membranes well hydrated without lesions. NECK: Supple, no masses, thyroid normal, JVP within normal limits, carotids normal without bruits. CHEST: Inspection within normal limits. CARDIOVASCULAR: Heart: Regular rate and rhythm, no murmurs, gallops or rubs. Peripheral pulses present within normal limits, no cyanosis, clubbing or edemas. No pulsatile abdominal mass RESPIRATORY: Lungs clear to auscultation and percussion, no wheezing, no rubs GASTROINTESTINAL AND LIVER: Abdomen: Soft, non tenderness, non-distended, no hernias, no masses, no organomegaly, no ascites, no guarding, no rebound tenderness, normoactive bowel sounds. Rectal: Deferred. GENITOURINARY: Male genitalia within normal limits. Potter catheter in place. Rectal bag in place. EXTREMITIES: No cyanosis, clubbing or edema. Exam/Review of Systems Vital Signs Vitals Vital Signs Date Temp Pulse Resp B/P (MAP) Pulse Ox O2 O2 Flow FiO2 Time Delivery Rate 06/26/18 100 12:00 06/26/18 99.4 18 96/56 (69) 96 Mechanical 12:00 Ventilator 06/26/18 50 11:40 06/25/18 15.0 11:41 Intake and Output 06/25/18 06/25/18 06/26/18 1515:00 23:00 07:00 IntakeIntake Total 1225 ml 975 ml 1378 ml OutputOutput Total 585 ml 895 ml 410 ml BalanceBalance 640 ml 80 ml 968 ml Copies To: CC: JARED ARMSTRONG MD ; CAROLYN CROWLEY NP Jun 26, 2018 15:19
--- NOTE | 2018-06-26 16:20 | NUR ---
PTS VISITED AROUND 1600 AND CLAIMED THAT PTS DRUG/SUBSTANCE ABUSE BEGAN 5 YEARS AGO WHEN PT LOST HIS MOTHER.
--- NOTE | 2018-06-26 16:28 | CONS ---
Assessment/Plan Assessment/Plan Assessment/Plan 37 M c/ reported Hx of recreational drug abuse...who presents for evaluation of ams, after being found unconscious in his garage by his . Clinically consistent w/ an acute toxic encephalopathy.. Superimposed stroke is not yet excluded.. Seizure is unlikely.. Head CT is unrevealing. P: Wean chemical sedation as soon as medically able MRI brain for further characterization when able Medical management and supportive care per primary Will follow clinically Result Diagram: 06/26/18 0439 06/26/18 1103 Results 24hrs Laboratory Tests Test 06/25/18 18:20 06/25/18 18:30 06/25/18 21:00 06/25/18 21:15 White Blood 6.8 # Count Red Blood Count 4.68 L Hemoglobin 14.5 Hematocrit 43.9 Mean 93.8 Corpuscular Volume Mean 31.0 Corpuscular Hemoglobin Mean 33.0 Corpuscular Hemoglobin Conc ent Red Cell 14.0 Distribution Width Platelet Count 255 Mean Platelet 9.9 Volume Immature 0.400 Granulocytes % Neutrophils % 85.2 H Lymphocytes % 10.2 L Monocytes % 4.1 Eosinophils % 0.0 Basophils % 0.1 Nucleated Red 0.0 Blood Cells % Immature 0.030 Granulocytes # Neutrophils # 5.8 Lymphocytes # 0.7 L Monocytes # 0.3 Eosinophils # 0.0 Basophils # 0.0 Nucleated Red 0.0 Blood Cells # Prothrombin 13.9 Time Prothrombin 1.1 Time Ratio INR 1.06 International Normalized Rati o Activated 29.0 Partial Thrombo plast Time Sodium Level 143 Potassium Level 6.1 *H Chloride Level 109 Carbon Dioxide 23 Level Anion Gap 11 # Blood Urea 31 H Nitrogen Creatinine 1.98 H Est Glomerular 39 L Filtrat Rate mL/min Glucose Level 65 #L Lactic Acid 2.2 *H Level Calcium Level 7.3 L Blood Gas Blood arterial Blood Specimen arterial Source Arterial Blood 06/25/2018 6:10 06/25/2018 9:0 Date Drawn :27 PM 0:00 PM Arterial Blood 7.130 *L 7.266 *L pH (Temp corrected ) Arterial Blood 57.2 H 43.0 pCO2 (Temp correct) Arterial Blood 48.5 *L 74.4 L pO2 (Temp corrected ) Arterial Blood 18.6 L 19.1 L HCO3 Arterial Blood -11.2 L -7.6 L Base Excess Arterial Blood 78.0 L 93.9 L Oxygen Saturati on Reynaldo Test ACCEPTAB ACCEPTAB Arterial Blood Right Radial Right Radial Gas Puncture Site Arterial 1.0 0.2 Blood Carboxyhe moglobin Arterial Blood 0.2 0.4 Methemoglobin Blood Gas A-a 607.3 H 595.6 H O2 Differential Oxyhemoglobin 77.1 L 93.3 Percent Blood Gas 37.0 37.0 Temperature Blood Gas 20.0 20.0 Respiration Rate Blood Gas 29 20 Actual Respiration Rat e Blood Gas VENT - AC VENT - AC Modality FiO2 100.0 100.0 Blood Gas Tidal 500.0 700.0 Volume Blood Gas Low 5.0 8.0 PEEP Setting Blood Gas Adrian KNOWLES RN Critical Value Read Back Blood Gas RDIX UP Notified Whom Blood Gas 06/25/2018 6:26 06/25/2018 9:1 Notified Time :24 PM 5:00 PM Creatine Kinase 61525 #H Creatine Kinase 1.9 Index Creatinine 567.00 H Kinase MB (Mass) Troponin I 0.321 *H Test 06/25/18 23:19 06/26/18 04:39 06/26/18 04:50 06/26/18 05:00 Lactic Acid 1.9 Level White Blood 13.6 #H Count Red Blood Count 3.95 L Hemoglobin 12.3 L Hematocrit 35.9 L Mean 90.9 Corpuscular Volume Mean 31.1 Corpuscular Hemoglobin Mean 34.3 Corpuscular Hemoglobin Conc ent Red Cell 13.8 Distribution Width Platelet Count 197 # Mean Platelet 10.7 H Volume Immature 0.200 Granulocytes % Neutrophils % Segmented 36 L Neutrophils % (Manual) Band 50 H Neutrophils % (Manual) Lymphocytes % Lymphocytes % 8 L (Manual) Monocytes % Monocytes % 6 (Manual) Eosinophils % Basophils % Nucleated Red 0.0 Blood Cells % Immature 0.030 Granulocytes # Neutrophils # Neutrophils # 5.8 (Manual) Band 6.8 H Neutrophils # Lymphocytes 1.0 (Manual) Lymphocytes # Monocytes # Monocytes # 0.8 (Manual) Eosinophils # Basophils # Nucleated Red Blood Cells # Toxic 1+ Granulation Platelet NORMAL Estimate Polychromasia 1+ Poikilocytosis 1+ Anisocytosis 1+ Prothrombin 16.4 H Time Prothrombin 1.3 Time Ratio INR 1.30 International Normalized Rati o Activated 36.1 H Partial Thrombo plast Time Sodium Level 144 Potassium Level 4.8 Chloride Level 108 Carbon Dioxide 20 L Level Anion Gap 16 H Blood Urea 41 H Nitrogen Creatinine 3.05 #H Est Glomerular 23 L Filtrat Rate mL/min Glucose Level 68 L Calcium Level 7.7 L Phosphorus 5.8 H Level Magnesium Level 2.1 Total Bilirubin 1.4 H Direct 0.00 Bilirubin Indirect 1.4 H Bilirubin Aspartate Amino 703 #H Transf (AST/SGO T) Alanine 214 H Aminotransferas e (ALT/SGPT) Alkaline 60 Phosphatase Creatine Kinase 45388 #H Total Protein 5.4 #L Albumin 3.1 #L Globulin 2.30 Albumin/Globuli 1.34 n Ratio Test 06/26/18 06:50 06/26/18 07:00 06/26/18 11:03 Ionized Calcium 1.0 L (Measured) Blood Gas Blood arterial Specimen Source Arterial Blood 06/26/2018 8:30 Date Drawn :40 AM Arterial Blood 7.363 pH (Temp corrected ) Arterial Blood 35.8 pCO2 (Temp correct) Arterial Blood 294.5 H pO2 (Temp corrected ) Arterial Blood 19.9 L HCO3 Arterial Blood -4.8 L Base Excess Arterial Blood 99.1 H Oxygen Saturati on Reynaldo Test ACCEPTAB Arterial Blood Right Radial Gas Puncture Site Arterial 0.3 Blood Carboxyhe moglobin Arterial Blood 0.4 Methemoglobin Blood Gas A-a 382.7 H O2 Differential Oxyhemoglobin 98.4 Percent Blood Gas 37.0 Temperature Blood Gas 20.0 Respiration Rate Blood Gas 20 Actual Respiration Rat e Blood Gas VENT - AC Modality FiO2 100.0 Blood Gas Tidal 700.0 Volume Blood Gas Low 8.0 PEEP Setting Blood Gas Nick [facility] Notified Whom Blood Gas 06/26/2018 8:51 Notified Time :44 AM Sodium Level 144 Potassium Level 4.5 Chloride Level 108 Carbon Dioxide 21 Level Anion Gap 15 H Blood Urea 47 H Nitrogen Creatinine 3.29 H Est Glomerular 22 L Filtrat Rate mL/min Glucose Level 93 Calcium Level 7.3 L Creatine Kinase 29334 H Creatine Kinase 0.7 Index Creatinine 303.00 H Kinase MB (Mass) Troponin I 0.190 *H Consultation Date/Type/Reason Admit Date/Time Jun 25, 2018 at 10:52 Type of Consult Neurology Reason for Consultation ams Date/Time of Note DATE: 06/26/18 TIME: 16:25 Hx of Present Illness Unable to contribute a Hx. Elsewhere noted: The patient is a 37 year-old male who was found unconscious on the floor in the garage by his this morning. It is unknown how long he was down on the floor . Last time she had seen him was 10pm the previous night. 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 He was noted to have drug paraphernalia laying around him. Upon arrival, paramedics noted that the patient had pinpoint pupils and administered Narcan. He then became agitated and had emesis. he is noted not to move his RUE and is severely hypothermic amongst other things. Currently, the patient is altered and unable to provide any additional history. Unable to obtain review of systems due to patient's altered mental status. Exam/Review of Systems Vital Signs Vitals Vital Signs Date Temp Pulse Resp B/P (MAP) Pulse Ox O2 O2 Flow FiO2 Time Delivery Rate 06/26/18 104 18 98/50 (66) 98 15:30 06/26/18 Mechanical 15:00 Ventilator 06/26/18 99.4 12:00 06/26/18 50 11:40 06/25/18 15.0 11:41 Intake and Output 06/25/18 06/25/18 06/26/18 1414:59 22:59 06:59 IntakeIntake Total 0 ml 2180 ml 1251 ml OutputOutput Total 570 ml 860 ml 400 ml BalanceBalance -570 ml 1320 ml 851 ml Exam PE: Gen Appearance: No Apparent Distress HEENT: Intubated Cardiovascular: Regular rate Abdomen: Soft Extremities: Dry NE: The patient was obtunded and nonverbal. Cranial nerve examination was limited by mental status. Pupils were equal and reactive to light. There was no afferent pupillary defect. Funduscopic examination was limited. Face was grossly symmetric, w/ present corneal and cough reflexes. Tone was normal. Muscle bulk was normal. I did not see fasciculations. The patient withdrew to noxious stimulation x 4. Coordination and gait testing was limited by mental status. Arm and leg reflexes were within normal limits and symmetric. Milian's sign was absent. Plantar responses were flexor. Additional Comments hct, reviewed: No acute intracranial pathology identified. Past Medical History Medical History: no pertinent history Medications Current Medications Ondansetron HCl (Zofran Inj) 4 mg Q6H PRN IV NAUSEA AND/OR VOMITING; Start 06/25/18 at 14:00 Albuterol (Proventil 0.083% (Neb)) 2.5 mg Q2H RESP THERAPY PRN NEB SHORTNESS OF BREATH; Start 06/25/18 at 14:00 Acetaminophen (Tylenol Supp) [address] PAIN LEVEL 1-3 OR FEVER Last administered on 06/26/18at 04:00; Admin Dose 650 MG; Start 06/25/18 at 14:00 Lorazepam (Ativan) 1 mg Q2H PRN IV ANXIETY Last administered on 06/26/18at 15:03; Admin Dose 1 MG; Start 06/25/18 at 14:00 Piperacillin Sod/ Tazobactam Sod 100 ml @ 200 mls/hr Q8 IVPB Last administered on 06/26/18at 14:59; Admin Dose 200 MLS/HR; Start 06/25/18 at 14:00 Fentanyl 100 ml @ 2.5 mls/hr TITRATE IV Last administered on 06/26/18at 13:40; Admin Dose 10 MLS/HR; Start 06/25/18 at 17:30 Sodium Bicarbonate 100 meq/Sodium Chloride 1,000 ml @ 125 mls/hr Q8H IV Last administered on 06/26/18at 16:02; Admin Dose 125 MLS/HR; Start 06/25/18 at 22 :00 Midazolam HCl 50 ml @ 1 mls/hr TITRATE IV Last administered on 06/26/18at 12:26; Admin Dose 10 MLS/HR; Start 06/25/18 at 23:00 Levofloxacin/ Dextrose 50 ml @ 50 mls/hr Q24H IVPB Last administered on 06/26/18at 10:05; Admin Dose 50 MLS/HR; Start 06/26/18 at 09:00 Pantoprazole (Protonix Iv) 40 mg BID@06,18 IV ; Start 06/26/18 at 18:00 Allergies: Coded Allergies: No Known Allergy (Unverified , 06/25/18) Past Surgical History Past Surgical Hx: no surgical history Social History Alcohol Use: occasionally Smoking Status: Unknown if ever smoked Drug Use: cocaine, marijuana EUGENIA VILLEGAS Jun 26, 2018 16:28
--- NOTE | 2018-06-26 17:34 | RADRPT ---
Echocardiogram Report Patient Name: SANFORD ROQUE Gender: Male Date: 1980 Study Date: 25-Jun-2018 Circus Roustabout: Shaunna Mae RDCS Location: 105 Ref. Physician: JOSIAS HUANG Quality: Good Procedures: Transthoracic echocardiogram with complete 2D, M-Mode, and doppler examination. Indications: Elevated trop. 2D/M Mode Doppler Measurement Value Normal Ranges Measurement Value Normal Ranges LVIDd 2D 5.0 3.5 - 5.6 cm AV Peak Golden 1.2 m/sec LVIDs 2D 3.9 2.1 - 4.1 cm AV Peak PG 5.0 mmHg LVPWd 2D 1.1 0.6 - 1.1 cm LVOT Peak Golden 0.7 m/sec IVSd 2D 1.0 0.6 - 1.1 cm LVOT Peak PG 2.0 mmHg AoR Diam 2D 2.5 2.0 - 3.7 cm MV E Peak Golden 0.7 m/sec LA/Ao 2D 1 0 - 1 MV A Peak Golden 0.4 m/sec LA Dimen 2D 3.2 2.3 - 4.0 cm MV E/A 2.0 MV Decel Time 176 msec Lat E` Golden 0.1 m/sec Lateral E/E` 5.8 MV E/A 2.0 TR Peak Golden 2.3 m/sec TR Peak PG 21.0 mmHg RVSP 24.0 mmHg RA Pressure 3.0 Findings Left Ventricle: Normal left ventricular cavity size. Left ventricular wall thickness upper limits of normal. Moderate global left ventricular systolic dysfunction. Ejection fraction is visually estimated at 40 %. Right Ventricle: Normal right ventricular size. Normal right ventricular systolic function. Left Atrium: The left atrium is normal in size. Right Atrium: The right atrium is normal in size. Mitral Valve: Mitral valve leaflets appear mildly thickened. Mild mitral annular calcification. Mild mitral valve regurgitation. Aortic Valve: Normal appearance of the aortic valve. No significant aortic stenosis or insufficiency. Tricuspid Valve: Normal appearance of the tricuspid valve. Estimated peak PA systolic pressure 24 mmHg. There is mild tricuspid regurgitation. Pulmonic Valve: Normal pulmonic valve appearance. Pericardium: Normal pericardium with no significant pericardial effusion. Aorta: Normal aortic root. IVC: Normal size and no respiratory collapse consistent with elevated right atrial pressure. Conclusions The left ventricle is normal in size with moderately reduced systolic function. Estimated left ventricular ejection fraction of 40%. There is global hypokinesis. Electronically Signed By: Ayush Robison 26-Jun-2018 17:33:41 -0800 Patient Name: SANFORD ROQUE Study Date: 25-Jun-[id number]
[2018-06-26] MEDS: PANTOPRAZOLE 40 MG INJ IV SCH (18:22)
[2018-06-26] MEDS ORDERED: LIDOCAINE 1% (MPF) 5 ML VIAL SC ONE (18:30)
--- NOTE | 2018-06-26 19:36 | NUR ---
PT STABLE ON VENTILATOR. ON FENTANYL AT 100MCG, VERSED AT 10MG/HR, AND SODIUM BICARB AT 125ML/HR. WHEN MOVING PT, PT BECAME AGITATED; GAVE 1MG ATIVAN X2 DURING SHIFT. PT HAS ORDERS FOR TUBE FEEDS; NOVASOURCE 30 WITH 100 Q6 WATER FLUSHES. URINE OUTPUT ADEQUATE. ORDERS FOR PICC LINE; NEED CONSENT FROM . ALL ABX GIVEN. MULTIPLE FAMILY MEMBERS CAME; UPDATED ON PLAN OF CARE. ALL INFORMATION ENDORSED TO GAS STATION CLERK NURSE.
--- NOTE | 2018-06-26 20:36 | CONS ---
Date/Time of Note Date/Time of Note DATE: 06/26/18 TIME: 20:33 Assessment/Plan Assessment/Plan Chief Complaint/Hosp Course Assessment: Mildly elevated troponin - likely type 2 NSTEMI versus rhabdomyolysis Cardiomyopathy, LVEF 40% - ischemic vs drug use Polysubstance abuse - urine toxicology positive for opiates, benzodiazepines, cocaine, cannabinoids Acute metabolic encephalopathy Acute hypoxic respiratory failure - now intubated and on mechanical ventilation Aspiration and probable pneumonia Acute kidney injury Recommendations: -echocardiogram showed LVEF 40% with global hypokinesis -will eventually need coronary evaluation once acute issues resolved Consultation Date/Type/Reason Admit Date/Time Jun 25, 2018 at 10:52 Initial Consult Date 06/26/18 Type of Consult Cardiology 24 HR Interval Summary Free Text/Dictation Intubated for respiratory distress. Troponins peaked at 0.3 and downtrending. Echocardiogram showed LVEF 40% with global hypokinesis. Detailed Summary Additional Comments Unable to obtain review of systems, patient is intubated. Exam/Review of Systems Vital Signs Vitals Vital Signs Date Temp Pulse Resp B/P (MAP) Pulse Ox O2 O2 Flow FiO2 Time Delivery Rate 06/26/18 104 6 106/67 96 Mechanical 18:00 (80) Ventilator 06/26/18 40 17:00 06/26/18 99.8 16:00 06/25/18 15.0 11:41 Intake and Output 06/25/18 06/25/18 06/26/18 1515:00 23:00 07:00 IntakeIntake Total 1225 ml 975 ml 1378 ml OutputOutput Total 585 ml 895 ml 410 ml BalanceBalance 640 ml 80 ml 968 ml Exam Constitutional: No alert, No oriented Psych: confusion; No nl mood/affect Head: normocephalic, atraumatic Eyes: nl conjunctiva, nl lids ENMT: nl external ears & nose, nl nasal mucosa & septum Neck: supple, non-tender Respiratory: crackles/rales, diminished breath sounds Cardiovascular: regular rate and rhythm Gastrointestinal: soft, non-tender Musculoskeletal: nl extremities to inspection Extremities: No cyanosis, No clubbing, No edema Neurological: No nl mental status, No nl speech IRVIN COLLAZO MD Jun 26, 2018 20:36
[2018-06-27] VITALS (51 sets, daily range): BP systolic 69–141; BP diastolic 33–87; PULSE 88–115; RESP 16–37
[2018-06-27] MEDS: SODIUM BICARBONATE (IV ADD) 100 MEQ in SOD CHLORIDE 0.45% 900 ML IV SCH (00:21)
[2018-06-27] MEDS: FENTAnyl (DRIP) 1000 mcg/100mL 100 ML IV SCH ×3 (00:23→23:45)
[2018-06-27] MEDS: MIDAZOLAM (DRIP) 50 mg/50 mL 50 ML IV SCH ×5 (00:24→23:39)
[2018-06-27] MEDS: LORAZEPAM 4 MG/ML VIAL IV PRN ×5 (02:11→19:45)
[2018-06-27] MEDS: ACETAMINOPHEN 650MG/20.3ML CUP GTB PRN ×3 (04:26→18:12)
[2018-06-27] MEDS: PIPER-TAZO 3.375 GM IV (PMX) 100 ML IVPB SCH ×3 (05:56→21:51)
[2018-06-27] MEDS: PANTOPRAZOLE 40 MG INJ IV SCH ×2 (05:56→18:12)
--- NOTE | 2018-06-27 07:00 | NUR ---
EOSS Pt remains intubated/sedated with FiO2 titrated down to 35% with FiO2 remaining >92%. Pt continued to have moderate amount of pink frothy sputum. Pt remained agitated throughout shift with ativan given multiple times. Restraints remain in place, pt continues to pull against restraints and grab towards tubes, drains, and IVs. Tube Feeding started, pt tolerating well with no residual, Rectal tube remains in place and patent. Pt's cousin came to visit briefly. All pt needs met, [facility]
[2018-06-27] MEDS ORDERED: SOD CHLORIDE 0.9% 1,000 ML IV SCH (08:30)
--- NOTE | 2018-06-27 08:35 | CONS ---
Date/Time of Note Date/Time of Note DATE: 06/27/18 TIME: 08:32 Assessment/Plan Assessment/Plan Additional Assessment/Plan Chest x-ray and ABG are pending from today. Ventilator setting; AC of 18, tidal volume 700, PEEP of 8, 35% FiO2. Patient is currently on fentanyl 100 mics per hour, Versed 10 mg/h. Assessment recommendations; 1. Patient admitted with severe respiratory failure due to extensive bilateral pneumonia. 2. History of drug abuse. 3. Likely underlying chronic renal insufficiency with acute renal injury with improving serum creatinine. 4. Anemia and thrombocytopenia. Thrombocytopenia likely heparin-induced. 5. Episodes of occasional agitation, possibly indicative of some element of drug withdrawal. Continue current supportive care. Further recommendations once chest x-ray and ABG are obtained. 35 minutes of critical care time was spent evaluating the patient. Consultation Date/Type/Reason Admit Date/Time Jun 25, 2018 at 10:52 Initial Consult Date 06/26/18 Type of Consult Pulmonary/critical care History of presenting illness; patient is a 37-year-old male who was brought into the hospital yesterday after he was found down outside his house. The patient did have a pulse and apparently a very brief CPR was done with revival of vital signs. The patient was then transferred to hospital and then subsequently transferred to ICU where he required intubation last evening. By the time I saw the patient, patient is orally intubated and sedated. History was obtained from medical records as well as from patient's aunt who was present in the room. According to the aunt, patient was found outside of their house slumped over without any prior known illness. Patient apparently took some illicit drugs. Past medical history; next 1. No medical history. Current medications; reviewed. Allergies; none. Social history; positive for smoking and drug abuse. Family history; patient is , has a supportive family and . 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 Review of system; unable to be obtained. General exam; young male, orally intubated, sedated, currently no distress. 24 HR Interval Summary Free Text/Dictation Patient's condition remains critical. Still orally intubated. Patient however has remained hemodynamically stable. General exam; young male, orally intubated, sedated, currently in no distress. Exam/Review of Systems Vital Signs Vitals Vital Signs Date Temp Pulse Resp B/P (MAP) Pulse Ox O2 O2 Flow FiO2 Time Delivery Rate 06/27/18 100.0 90 18 103/76 98 Mechanica 08:00 (85) l Ventilato r 06/27/18 35 05:20 06/25/18 15.0 11:41 Intake and Output 06/26/18 06/26/18 06/27/18 1414:59 22:59 06:59 IntakeIntake Total 1209.5 ml 1335 ml 1660 ml OutputOutput Total 485 ml 610 ml 910 ml BalanceBalance 724.5 ml 725 ml 750 ml Exam HEENT exam; supple neck, no JVD. No lymphadenopathy. Midline trachea. No thyromegaly. Pupils are small bilaterally. Patient has fair dentition. No neck masses. Chest exam; diminished but clear breath sounds. S1-S2 audible, no murmurs. Regular rhythm. Abdomen exam; soft, no organomegaly. Bowel sounds audible. Extremity exam; no edema clubbing. Pulses 2+. CONSULTING NETWORKING ENGINEER exam; focal deficit. DERREK ALBERT Jun 27, 2018 08:35
[2018-06-27] MEDS: LEVOFLOXACIN 250MG/D5W (PMX) 50 ML IVPB SCH (08:45)
--- NOTE | 2018-06-27 11:21 | NUR ---
Nutrition consult: TF recommendations Hx of drug abuse and currently intubated. No GI bleeding noted. TF initiated yesterday. Novasource @30ml/hr at visit. Per RN, 1/2 NS running @75ml/hr. Pt is tolerating feeding well with no residuals noted. PO4 was initially elevated but now are WNL. Potassium is WNL. Recommend changing to Isosource @65ml/hr with water flush per MD. Will continue to monitor.
--- NOTE | 2018-06-27 12:12 | PN ---
Date/Time of Note Date/Time of Note DATE: 06/27/18 TIME: 12:08 Assessment/Plan VTE Prophylaxis Risk score (from Ns)>0 risk: 3 SCD applied (from Ns): Yes Pharmacological prophylaxis: LMWH Lines/Catheters IV Catheter Type (from [facility]): Peripheral IV Urinary Cath still in place: Yes Reason Cath still needed: other (indicate) (Acute kidney injury) Assessment/Plan Problems: (1) Cardiopulmonary arrest with successful resuscitation Status: Acute Comment: Remains sedated. Neurology saw him yesterday however regrettably is too early to tell the see how he is going to do. We will continue with supportive aggressive care and see how he recovers only start taking him off of sedatives (2) Rhabdomyolysis Status: Acute Comment: His CPK is finally peaked and is probably going to be starting on the way down. Given the response of his electrolytes I agree with the trading assistant discontinuing the bicarbonate drip. Qualifiers: Rhabdomyolysis type: traumatic Encounter type: initial encounter Qualified Codes: T79.6XXA - Traumatic ischemia of muscle, initial encounter (3) Acute kidney injury Status: Acute Comment: He is now in post ATN diuresis phase. We will need to keep up with them and make sure that we do not let him get dehydrated. In addition I would prefer to use LR instead of normal saline (4) Respiratory failure with hypoxia and hypercapnia Status: Acute Comment: Remains on ventilator support at this time. In addition given his evidence of pneumonia he remains on antibiotic therapy. Qualifiers: Chronicity: acute Qualified Codes: J96.01 - Acute respiratory failure with hypoxia; J96.02 - Acute respiratory failure with hypercapnia (5) Pneumonia Status: Acute Comment: Remains on antibiotics therapy Qualifiers: Pneumonia type: due to unspecified organism Laterality: bilateral Lung location: upper lobe of lung Qualified Codes: J18.1 - Lobar pneumonia, unspecified organism (6) Crutch palsy of right upper extremity Status: Acute Comment: We will see how this recovers as he becomes off of sedatives. Qualifiers: Encounter type: initial encounter Qualified Codes: S14.3XXA - Injury of brachial plexus, initial encounter (7) Non-STEMI (non-ST elevated myocardial infarction) Status: Acute Comment: Probably demand event. Careful observation (8) Substance abuse Status: Acute Comment: Address this as he comes back to in awake state if he comes back to the awake state Subjective 24 Hr Interval Summary Free Text/Dictation Remains on Versed and fentanyl drip at this time. Subjective hx not possible: pt non-verbal, pt critical status Exam/Review of Systems Vital Signs Vitals Vital Signs Date Temp Pulse Resp B/P (MAP) Pulse Ox O2 O2 Flow FiO2 Time Delivery Rate 06/27/18 101.5 11:45 06/27/18 101 23 114/84 90 Mechanica 10:00 (94) l Ventilato r 06/27/18 35 05:20 06/25/18 15.0 11:41 Intake and Output 06/26/18 06/26/18 06/27/18 1515:00 23:00 07:00 IntakeIntake Total 1217.5 ml 1445 ml 1670 ml OutputOutput Total 485 ml 625 ml 935 ml BalanceBalance 732.5 ml 820 ml 735 ml Exam Constitutional: non-verbal ENMT: intubated, other (Feeding tube in place) Respiratory: clear to auscultation, normal air movement Cardiovascular: regular rate and rhythm, nl pulses GUANAKITO BUSCH MD Jun 27, 2018 12:12
--- NOTE | 2018-06-27 12:18 | PN ---
DATE: 06/27/2018 SUBJECTIVE: The patient remains febrile and agitated. The patient had excellent urinary output. No other events noted. No hemoptysis, hematemesis, hematochezia. OBJECTIVE: VITAL SIGNS: Blood pressure is 107/65, respiration 18, pulse 101, temperature 101.5. HEENT: Head is normocephalic. NECK: Supple. HEART: Regular rate. LUNGS: Show diminished breath sounds at the base. ABDOMEN: Soft, nontender to palpation without rebound or guarding. EXTREMITIES: Negative for clubbing, cyanosis, trace edema. DERMATOLOGIC: No rashes. MUSCULOSKELETAL: No joint effusion. NEUROLOGIC: No change in exam. MEDICATIONS: Reviewed. LABORATORY DATA: Shows sodium 146, potassium 3.8, chloride 108, BUN 52, creatinine 2.70, calcium 7.4 . White count 14.2, hemoglobin 10.4, platelet count is 151. Patient's chest x-ray shows extensive a irspace opacification compatible with ARDS or pneumonitis, possible pulmonary edema. The patient's A BG was reviewed. ASSESSMENT AND PLAN: 1. Nonoliguric acute kidney injury with previously unknown baseline creatinine. Etiology secondary to acute tubular necrosis due to associated acute kidney injury from rhabdomyolysis, ischemic h ypoperfusion, nephrotoxicity from polysubstance abuse. The patient appears to be entering maintenanc e, possible recovery phase of acute tubular necrosis as renal function has improved in the last 24 ho urs, urinary output has improved. At this point, will continue aggressive IV hydration. Continue to monitor CK levels. Continue IV antibiotics to treat underlying sepsis. Will continue supportive ca re, renally dose meds, avoid nephrotoxins. Please note will likely change IV fluids from bicarbonate drip to normal saline if patient should start developing hypocalcemia or alkalemia on ABG. 2. Rhabdomyolysis. Continue aggressive IV hydration. The patient remains on bicarbonate drip antic ipate switching to normal saline. We will follow up an ABG monitor serial CK levels. Monitor calciu m levels. Monitor calcium level and phosphorus levels and potassium levels closely. 3. Anemia. Monitor hemoglobin and hematocrit levels. 4. Mineral bone disorder. The patient's hyperphosphatemia is secondary to acute kidney injury and r habdomyolysis, improving. Continue to monitor. 5. Lactic acidosis secondary to sepsis, hemodynamics, improving. 6. Ventilator-dependent respiratory failure. Vent settings and ABG was reviewed. Continue to monit or. Followup with pulmonary. 7. Sepsis secondary to bilateral pneumonia. Continue treatment plan. 8. Acute encephalopathy. Etiology secondary to polysubstance abuse, toxic metabolic. Continue to m onitor. 9. Hyperkalemia, resolved. 10. Elevated troponin, likely due to demand ischemia. Continue current treatment plan. 11. History of polysubstance abuse. 12. Cardiomyopathy. The patient has an LV ejection fraction of 40% with global hypokinesis. The pat ient will require eventual cardiac catheterization to rule out ischemic etiology. Please note I spent over 30 minutes of critical care time with this patient. Dictated By: UMAIR LOBO DO NR/NTS Conf#: [id number] DID#: [id number] CC: IRVIN COLLAZO MD; JOSIAS HUANG MD;*EndCC*
--- NOTE | 2018-06-27 12:24 | NUR ---
DR. BUSCH CAME BY AND REQUESTED TO FINISH THE NS RUNNING AND THEN START D5 LR WHEN ITS DONE.
--- NOTE | 2018-06-27 14:54 | PN ---
Date/Time of Note Date/Time of Note DATE: 06/27/18 TIME: 14:51 Assessment/Plan VTE Prophylaxis Risk score (from Nsg)>0 risk: 3 SCD applied (from Nsg): Yes Pharmacological prophylaxis: heparin Lines/Catheters IV Catheter Type (from Nrsg): Peripheral IV Urinary Cath still in place: Yes Reason Cath still needed: other (indicate) (I and O) Assessment/Plan Hospital Course Assessment: Epistaxis -resolved Anemia - hemodilution Pneumonitis/shock liver ALIYAH Rhabdomyolysis Pulmonary edema Status post possible cardiopulmonary arrest Encephalopathy Multisubstance abuse Elevated troponins Respiratory failure Plan: Protonix twice daily Hepatitis serology -negative Autoimmune panel Observe for signs of GI bleeding Monitor LFTs Monitor H&H Transfuse for hemoglobin less than 7.5 Patient seen in collaboration with Subjective: Patient remains intubated and sedated on Versed and fentanyl drip. No evidence of GI bleeding. Hemoglobin dropped likely due to hemodilution. Rectal bag draining light brown stool. With no further recommendations GI will sign off and will be available for consultation upon request. PHYSICAL EXAMINATION: GENERAL: Well developed, well nourished, intubated on the ventilator, sedated, bilateral upper extremity restraints, in no acute distress SKIN: No lesions, no stigmata chronic liver disease, no evidence of bleeding diathesis LYMPHATIC: No palpable lymphadenopathy. HEAD: Normocephalic, atraumatic, no tenderness. EYES: Pupils equal reactive to light and accommodation, full extraocular movements, sclera clear, non-icteric, no discharge. EARS/NOSE AND THROAT: Ears normal, nose normal, oropharynx normal, oral membranes well hydrated without lesions. NECK: Supple, no masses, thyroid normal, JVP within normal limits, carotids normal without bruits. CHEST: Inspection within normal limits. CARDIOVASCULAR: Heart: Regular rate and rhythm, no murmurs, gallops or rubs. Peripheral pulses present within normal limits, no cyanosis, clubbing or edemas. No pulsatile abdominal mass RESPIRATORY: Lungs clear to auscultation and percussion, no wheezing, no rubs GASTROINTESTINAL AND LIVER: Abdomen: Soft, non tenderness, non-distended, no hernias, no masses, no organomegaly, no ascites, no guarding, no rebound tenderness, normoactive bowel sounds. Rectal: Deferred. GENITOURINARY: Male genitalia within normal limits. Potter catheter in place. Rectal bag in place. EXTREMITIES: No cyanosis, +2 edema. Exam/Review of Systems Vital Signs Vitals Vital Signs Date Temp Pulse Resp B/P (MAP) Pulse Ox O2 O2 Flow FiO2 Time Delivery Rate 06/27/18 98 22 123/76 97 Mechanica 14:00 (92) l Ventilato r 06/27/18 100.0 08:00 06/27/18 35 05:20 06/25/18 15.0 11:41 Intake and Output 06/26/18 06/26/18 06/27/18 1515:00 23:00 07:00 IntakeIntake Total 1217.5 ml 1445 ml 1670 ml OutputOutput Total 485 ml 625 ml 935 ml BalanceBalance 732.5 ml 820 ml 735 ml Copies To: CC: JARED ARMSTRONG MD ; CAROLYN CROWLEY NP Jun 27, 2018 14:54
[2018-06-27] MEDS: DEXTROSE 5%-LR 1,000 ML IV SCH (16:45)
--- NOTE | 2018-06-27 16:51 | CONS ---
Date/Time of Note Date/Time of Note DATE: 06/27/18 TIME: 16:50 Assessment/Plan Assessment/Plan Chief Complaint/Hosp Course Assessment: Mildly elevated troponin - likely type 2 NSTEMI versus rhabdomyolysis Cardiomyopathy, LVEF 40% - ischemic vs drug use Polysubstance abuse - urine toxicology positive for opiates, benzodiazepines, cocaine, cannabinoids Acute metabolic encephalopathy Acute hypoxic respiratory failure - now intubated and on mechanical ventilation Aspiration and probable pneumonia Acute kidney injury Recommendations: -echocardiogram showed LVEF 40% with global hypokinesis -will eventually need coronary evaluation once acute issues resolved Consultation Date/Type/Reason Admit Date/Time Jun 25, 2018 at 10:52 Initial Consult Date 06/26/18 Type of Consult Cardiology 24 HR Interval Summary Free Text/Dictation Remains intubated, sedated. Detailed Summary Additional Comments Unable to obtain review of systems, patient is intubated. Exam/Review of Systems Vital Signs Vitals Vital Signs Date Temp Pulse Resp B/P (MAP) Pulse Ox O2 O2 Flow FiO2 Time Delivery Rate 06/27/18 95 16:00 06/27/18 16 107/68 94 15:30 (81) 06/27/18 35 15:05 06/27/18 98.9 Mechanical 15:00 Ventilator 06/25/18 15.0 11:41 Intake and Output 06/26/18 06/26/18 06/27/18 1414:59 22:59 06:59 IntakeIntake Total 1209.5 ml 1335 ml 1660 ml OutputOutput Total 485 ml 610 ml 910 ml BalanceBalance 724.5 ml 725 ml 750 ml Exam Constitutional: No alert, No oriented Psych: confusion; No nl mood/affect Head: normocephalic, atraumatic Eyes: nl conjunctiva, nl lids ENMT: nl external ears & nose, nl nasal mucosa & septum Neck: supple, non-tender Respiratory: crackles/rales, diminished breath sounds Cardiovascular: regular rate and rhythm Gastrointestinal: soft, non-tender Musculoskeletal: nl extremities to inspection Extremities: No cyanosis, No clubbing, No edema Neurological: No nl mental status, No nl speech IRVIN COLLAZO MD Jun 27, 2018 16:51
--- NOTE | 2018-06-27 18:56 | NUR ---
EOSS PT STABLE ON VENTILATOR. CURRENTLY ON FENTANYL AT 100MCG/HR, VERSED AT 10MG/HR, D5 LR AT 75ML/HR. BEGAN TUBE FEEDS THIS AFTERNOON, CHANGED FROM NOVASOURCE TO ISOSOURCE AT 30ML/HR WITH A GOAL OF 65 AND 100 Q6 WATER FLUSHES PER DIETARY REQUEST AND ORDER FROM DR. BUSCH. HR REMAINS IN 90'S. BECOMES AGITATED WITH PHYSICAL/VERBAL STIMULI- GAVE ATIVAN NEEDED. HAD A LOW GRADE TEMP OF 100.5, GAVE TYLENOL 650 MG X1. INSERTED NEW OG TUBE THIS AM, PLACEMENT CONFIRMED BY CXR. URINE OUTPUT ADEQUATE. SKIN INTACT. WILL ENDORSE TO SALESPERSON FURNITURE NURSE.
[2018-06-27] MEDS ORDERED: PROPOFOL 100 ML ONE (21:39)
[2018-06-27] MEDS: PROPOFOL 100 ML IV SCH (21:50)
[2018-06-28] VITALS (48 sets, daily range): BP systolic 98–121; BP diastolic 60–84; PULSE 77–93; RESP 13–34
[2018-06-28] MEDS: DEXTROSE 5%-LR 1,000 ML IV SCH (03:24)
[2018-06-28] MEDS: PANTOPRAZOLE 40 MG INJ IV SCH ×2 (05:12→18:06)
[2018-06-28] MEDS: PIPER-TAZO 3.375 GM IV (PMX) 100 ML IVPB SCH ×3 (05:12→21:58)
[2018-06-28] MEDS: LORAZEPAM 4 MG/ML VIAL IV PRN (05:12)
[2018-06-28] MEDS: MIDAZOLAM (DRIP) 50 mg/50 mL 50 ML IV SCH ×4 (05:13→20:55)
--- NOTE | 2018-06-28 08:00 | CONS ---
DATE OF ADMISSION: 06/25/2018 DATE OF CONSULTATION: 06/25/2018 TYPE OF CONSULTATION: Nephrology. REASON FOR CONSULTATION: Acute kidney injury. PHYSICIAN REQUESTING CONSULTATION: ____. HISTORY OF PRESENT ILLNESS: This is a 37-year-old male with a past medical history of polysubstance abuse who presents to [facility] after patient being found down in his garage by hi s . The patient was last seen by his the night before. The patient works in the [employer]. The patient was noted to have drug paraphernalia lying around him. When the paramedics arrive d, the patient was noted to have pinpoint pupils and administered Narcan. The patient became agitate d, had emesis. The patient, upon arrival to the emergency room, was noted to be in respiratory distr ess. A toxicology report was performed which showed evidence of opiates and benzodiazepines, cannabi noids and cocaine. The patient was placed on IV fluids and admitted to the intensive care unit. Upo n my evaluation of the patient at this time, the patient is currently unable to provide any history, is lethargic, able to respond to painful stimuli. PAST MEDICAL HISTORY: In terms of the patient's renal history, per the patient's , he has no lani or history of chronic kidney disease or acute kidney injury. The patient has a history of diabetes a nd hypertension. PAST SURGICAL HISTORY: None. ALLERGIES: NONE. FAMILY HISTORY: None. SOCIAL HISTORY: History of previous drug abuse. MEDICATIONS: None. REVIEW OF SYSTEMS: Unable to do adequate review of systems. The patient is altered. Pertinent posi tives as obtained by reviewing the records, speaking to hospital staff, stated in HPI, otherwise nega tive. PHYSICAL EXAMINATION: VITAL SIGNS: Blood pressure is 103/59, respirations 22, pulse 96, temperature 97.1. HEENT: Head is normocephalic. NECK: Supple. HEART: Tachycardic. LUNGS: Show diminished breath sounds at the base. ABDOMEN: Soft, nontender to palpation. No rebound or guarding. EXTREMITIES: Negative for clubbing, cyanosis. No edema. DERMATOLOGIC: No rashes. MUSCULOSKELETAL: No joint effusion. NEUROLOGIC: No change in exam. MEDICATIONS: The patient's medications have been reviewed. LABORATORY DATA: Shows sodium 140, potassium 5.2, BUN 21, creatinine 2.05. The patient's CK level i s 23,000. ABG shows pH 7.090, pCO2 of 73, base excess of -9.5. IMAGING STUDIES: The patient's chest x-ray shows bilateral airspace opacification, suggesting multif ocal pneumonia, pulmonary edema or ARDS. CT scan of the brain was reviewed. ASSESSMENT AND PLAN: This is a 37-year-old male who presents with: 1. Nonoliguric acute kidney injury with unknown baseline creatinine. Etiology of acute kidney injur y is multifactorial secondary to pigment-associated acute kidney injury due to rhabdomyolysis, acute tubular necrosis secondary to ischemic hypoperfusion. The patient has a creatinine kinase level of 2 3,000. The plan at this point is to check a urinalysis with microanalysis. Will check urine electro lytes. Will continue the patient on aggressive intravenous hydration. Will monitor serial creatinin e kinase levels. If the patient's acidemia does not improve, will consider starting the patient on b icarbonate drip, which will help prevent cast formation and distal nephrons. We will otherwise danielle nue supportive care, renally dose medications, avoid nephrotoxins. 2. Mild hyperkalemia secondary to acute kidney injury. We will continue to monitor. 3. Anemia. Monitor hemoglobin and hematocrit levels. 4. Mineral bone disorder. Monitor calcium and phosphorus levels. 5. Sepsis secondary to multifocal pneumonia, aspiration. Continue intravenous antibiotics, intraven ous fluids, monitor closely. 6. Acute hypoxemic respiratory failure, etiology secondary to pneumonia. The patient's arterial blo od gas was reviewed. The patient is pending intubation. Continue to monitor closely. 7. Sepsis secondary to multifocal pneumonia. Continue current antibiotic regimen. Continue intrave nous fluids. 8. Mixed acid base disorder. The patient has a respiratory acidosis and metabolic acidosis. The stevenson sharon is currently pending intubation. Will monitor arterial blood gases. If the acidemia does not improve, we will start the patient on a bicarbonate drip. 9. Elevated troponin, possible non-ST elevation myocardial infarction, type 2, due to demand ischemi a. Continue to monitor. 10. Acute encephalopathy, etiology toxic-metabolic. 11. Polysubstance drug abuse. Continue to monitor. Please note, I spent over 30 minutes of critical care time with this patient. Thank you, ____, for this interesting consult. It will be a pleasure to follow the patient with you throughout the hospital course. Dictated By: UMAIR VALDEZ/MELODY Conf#: [id number] DID#: [id number]
--- NOTE | 2018-06-28 08:08 | CONS ---
Date/Time of Note Date/Time of Note DATE: 06/28/18 TIME: 08:06 Assessment/Plan Assessment/Plan Additional Assessment/Plan Ventilator setting; AC of 18, tidal volume 500, PEEP of 5, 35% FiO2. Patient is currently on fentanyl 100 mics per hour, Versed 10mg/h, propofol 5 mics per kilogram per minute. Assessment recommendations; 1. Patient admitted with respiratory failure due to drug overdose with significant bilateral pneumonia likely aspiration with interval radiological improvement as well as improvement in gas exchange. 2. Enterococcus UTI. 3. Likely acute on chronic renal injury with improving renal function. 4. Rhabdomyolysis likely exacerbating acute renal injury. Patient off sodium bicarb drip. Continue current supportive care. Obtain follow-up chest x-ray 24 hours. We will continue current antibiotics. Monitor renal function. Patient to be given sedation vacation as tolerated. 35 minutes of critical care time was spent evaluating the patient. Consultation Date/Type/Reason Admit Date/Time Jun 25, 2018 at 10:52 Initial Consult Date 06/26/18 Type of Consult Pulmonary/critical care History of presenting illness; patient is a 37-year-old male who was brought into the hospital yesterday after he was found down outside his house. The patient did have a pulse and apparently a very brief CPR was done with revival of vital signs. The patient was then transferred to hospital and then subsequently transferred to ICU where he required intubation last evening. By the time I saw the patient, patient is orally intubated and sedated. History was obtained from medical records as well as from patient's aunt who was present in the room. According to the aunt, patient was found outside of their house slumped over without any prior known illness. Patient apparently took some illicit drugs. Past medical history; next 1. No medical history. Current medications; reviewed. Allergies; none. Social history; positive for smoking and drug abuse. Family history; patient is , has a supportive family and . 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 Review of system; unable to be obtained. General exam; young male, orally intubated, sedated, currently no distress. 24 HR Interval Summary Free Text/Dictation Patient's condition remains critical. Exhibiting occasional agitation despite significant intravenous continuous sedation. Patient however has remained hemodynamically stable. General exam; young male, orally intubated, sedated, currently in no distress. Exam/Review of Systems Vital Signs Vitals Vital Signs Date Temp Pulse Resp B/P (MAP) Pulse Ox O2 O2 Flow FiO2 Time Delivery Rate 06/28/18 83 29 111/66 97 07:30 (81) 06/28/18 Mechanical 07:00 Ventilator 06/28/18 35 05:30 06/28/18 99.0 04:00 06/25/18 15.0 11:41 Intake and Output 06/27/18 06/27/18 06/28/18 1515:00 23:00 07:00 IntakeIntake Total 1185.0 ml 1160.271 ml 1248.154 ml OutputOutput Total 765 ml 905 ml 775 ml BalanceBalance 420.0 ml 255.271 ml 473.154 ml Exam HEENT exam; supple neck, no JVD. No lymphadenopathy. Midline trachea. No thyromegaly. Pupils are midsize. Patient has fair dentition. Orally intubated. No neck masses. Chest exam; diminished breath sounds bilaterally. S1-S2 audible, no murmurs. Regular rhythm. Abdomen exam; soft, no organomegaly. Bowel sounds audible. Extremity exam; peripheral edema or clubbing. COTTON PRESSER exam; patient is sedated. DERREK ALBERT Jun 28, 2018 08:08
[2018-06-28] MEDS: LEVOFLOXACIN 250MG/D5W (PMX) 50 ML IVPB SCH (08:40)
[2018-06-28] MEDS ORDERED: NEUTRA-PHOS 250 MG PACKET PO ONE (09:00)
[2018-06-28] MEDS: FENTAnyl (DRIP) 1000 mcg/100mL 100 ML IV SCH ×2 (09:04→17:22)
[2018-06-28] MEDS: SOD CHLORIDE 0.45% 1,000 ML IV SCH ×2 (09:14→19:38)
--- NOTE | 2018-06-28 09:29 | PN ---
Date/Time of Note Date/Time of Note DATE: 06/28/18 TIME: 09:21 Assessment/Plan VTE [place] [facility] [place]: 3 [place] [facility] [place] Yes Pharmacological prophylaxis: LMWH ( was put of hold for pinkish urine, will start with low dose heparin), heparin Lines/Catheters IV Catheter Type (from [facility]): Peripheral IV Urinary Cath still in place: Yes Reason Cath still needed: other (indicate) (altered) Assessment/Plan Assessment/Plan 37 yo M found unresponsive outside his home garage managed in ICU as follows: 1. Acute encephalopathy -toxic metabolic r/o HIE -multiple substances including cocaine / BZD / THC in urine drug screen -responded to narcan by EMS -Patient initially had complete RUE paresis, but this seems to have improved -patient likely has suffered neurologic insult, CT brain negative, needs MRI when more stable 2. Acute Resp failure: -s/p ET intubation and remains Vent dependent -Pulm following and managing 3. Renal failure: improving -acute, ?ATN from drugs versus severe dehydration -nephro managing 4. Severe hypothermia: resolved -s/p warming measures 5. Metabolic acidosis: improved -2/2 renal failure and drugs, 6. Severe Rhabdomyolysis -Fluid management per nephrology -levels improving 7. Hyperkalemia: 2/2 renal failure -no EKG changes -repeat levels at this time, intervene with cocktail if indicated 8. Sepsis with roz Pneumonia, ?aspiration -blood cultures negative so far, repeat again for fever -Continue current abx, add Vanco, ID consult 9. Elevated troponins vs NSTEMI -resume aspirin -echocardiogram showed LVEF 40% with global hypokinesis -will eventually need coronary evaluation once acute issues resolved 10. Multisubstance abuse -urine drug screen positive for cocaine / BZD / THC / Opiate -will need counselling if / when mentation improves 11. Enterococcus UTI -continue abx 12. Hypernatremia and hypophosphatemia - IVF changed per Nephro, continue to trend 13. S/p Epistaxis -resume aspirin and monitor -remains on PPI BID Prophylaxis: Pepcid / Heparin FEN: Tube feedings / 1/2 NS @100cc /hr Further evaluation and treatment will be based on clinical course CRITICAL CARE TIME: >35 mins of which more than half was spent at the bedside and during counselling Subjective 24 Hr Interval Summary Free Text/Dictation Patient seen and examined. Nursing reports no acute overnight events. patient developing fever Exam/Review of Systems Vital Signs Vitals Vital Signs Date Temp Pulse Resp B/P (MAP) Pulse Ox O2 O2 Flow FiO2 Time Delivery Rate 06/28/18 86 18 111/77 08:30 (88) 06/28/18 35 08:00 06/28/18 98.3 97 Mechanical 08:00 Ventilator 06/25/18 15.0 11:41 Intake and Output 06/27/18 06/27/18 06/28/18 1515:00 23:00 07:00 IntakeIntake Total 1185.0 ml 1160.271 ml 1498.154 ml OutputOutput Total 765 ml 905 ml 925 ml BalanceBalance 420.0 ml 255.271 ml 573.154 ml Exam GENERAL: Intubated and comfortably sedated HEENT: EDMOND, Intubated, Vent settings noted , high peep of 8 LUNGS: diffusely diminished and coarse BS HEART: S1, S2. No murmur, gallops or rubs. ABDOMEN: Soft, non distended, Normoactive bowel sounds. GENITOURINARY: Normal male external genitalia, Potter to bedside drainage with good UO EXTREMITIES: Trace edema bilaterally NEUROLOGIC: The patient is currently sedated. SKIN: Otherwise, unremarkable. . Additional Comments PROCEDURE: XR Chest 1 View. CLINICAL INDICATION: Shortness of breath. TECHNIQUE: Single view of the chest was obtained. COMPARISON: None. FINDINGS: Mediastinum: Within normal limits of size. Lungs: Stable endotracheal and nasogastric tubes. Stable extensive infiltrates throughout both lungs. Hypoinflated lungs with an elevated right hemidiaphragm. No pneumothorax. Osseous structures: Intact. Other: None. IMPRESSION: Stable extensive infiltrates throughout both lungs. Hypoinflated lungs with an elevated right hemidiaphragm. RPTAT: AA .Klaus Gan MD, Date Time Electronically viewed and signed by .Klaus Gan MD, MD on 06/28/2018 08:15 .P/ CC: DERREK ALBERT [phone] JOSIAS HUANG Jun 28, 2018 09:29
--- NOTE | 2018-06-28 10:04 | PN ---
DATE: 06/28/2018 SUBJECTIVE: The patient is in serious but stable condition. Remains on full ventilatory support. T he patient's urinary output has been improving. OBJECTIVE: VITAL SIGNS: Blood pressure is 111/66, respirations 29, pulse 83, temperature 98.6. HEENT: Head is normocephalic. NECK: Supple. HEART: Regular rate. LUNGS: Show diminished breath sounds at the base. ABDOMEN: Soft, nontender to palpation without rebound or guarding. EXTREMITIES: Negative for clubbing, cyanosis, no edema. DERMATOLOGIC: No rashes. MUSCULOSKELETAL: No joint effusion. NEUROLOGIC: No change in exam. MEDICATIONS: Reviewed. LABORATORY DATA: Shows sodium 151, potassium 4.2, chloride 114, bicarb 33, BUN 39, creatinine 1.69, magnesium 3.0, phosphorus 2.0, CK level 31,000. White count 15,000, hemoglobin 9.9, platelet count i s 149. IMAGING: The patient's chest x-ray was reviewed. ASSESSMENT AND PLAN: 1. Nonoliguric acute kidney injury with unknown baseline creatinine. Etiology is multifactorial sec ondary to pigment-associated acute kidney injury due to rhabdomyolysis, acute tubular necrosis due to ischemic hypoperfusion. The patient's CK level is 43,000, currently trending down. At this p oint, continue current medical management. Continue aggressive IV hydration. Continue to monitor CK levels. Continue supportive care, renally dose all meds. The patient is status post bicarbonate th erapy. 2. Hyperkalemia, secondary to acute kidney injury, resolved. 3. Anemia. Monitor hemoglobin and hematocrit levels. 4. Mineral bone disorder. The patient is hypophosphatemic. We will replete with potassium phosphat e. 5. Sepsis secondary to multifocal pneumonia, aspiration. Continue antibiotic therapy, IV fluids. 6. Hypernatremia. The patient has free water deficit approximately 3.5 liters. Will increase free water flushes to 200 mL q.4h. Monitor serial sodium levels. 7. Ventilatory-dependent respiratory failure. Vent settings and arterial blood gas was reviewed. C ontinue to monitor. 8. Elevated troponin, likely due to demand ischemia. Continue current treatment plan. 9. Cardiomyopathy with ejection fraction 40% with global hypokinesis. The patient may eventually re quire cardiac catheterization. Continue to monitor. 10. Lactic acidosis, resolving. 11. Acute encephalopathy. Etiology is multifactorial secondary to polysubstance abuse, toxic metabo lic. Please note I spent over 30 minutes of critical care time with this patient. Dictated By: UMAIR VALDEZ/MELODY Conf#: [id number] DID#: [id number] CC: JOSIAS HUANG MD;*EndCC*
[2018-06-28] MEDS: PROPOFOL 100 ML IV SCH ×2 (10:07→21:58)
[2018-06-28] MEDS: ACETAMINOPHEN 650MG/20.3ML CUP GTB PRN (10:39)
--- NOTE | 2018-06-28 11:44 | CONS ---
Assessment/Plan Assessment/Plan Assessment/Plan 37 M c/ reported Hx of recreational drug abuse...who presents for evaluation of ams, after being found unconscious in his garage by his . Clinically consistent w/ an acute toxic encephalopathy.. Superimposed stroke is not yet excluded.. Seizure is unlikely.. Head CT is unrevealing. P: Wean chemical sedation as soon as medically able MRI brain for further characterization when able Medical management and supportive care per primary Will follow clinically Result Diagram: 06/28/18 0516 06/28/18 0516 Results 24hrs Laboratory Tests Test 06/28/18 05:16 White Blood Count 15.4 H Red Blood Count 3.12 L Hemoglobin 9.9 L Hematocrit 28.4 L Mean Corpuscular Volume 91.0 Mean Corpuscular Hemoglobin 31.7 Mean Corpuscular Hemoglobin Concent 34.9 Red Cell Distribution Width 14.0 Platelet Count 149 Mean Platelet Volume 10.6 H Immature Granulocytes % 0.600 H Neutrophils % 81.8 H Lymphocytes % 10.7 L Monocytes % 5.1 Eosinophils % 1.5 Basophils % 0.3 Nucleated Red Blood Cells % 0.0 Immature Granulocytes # 0.090 H Neutrophils # 12.6 H Lymphocytes # 1.7 Monocytes # 0.8 Eosinophils # 0.2 Basophils # 0.1 Nucleated Red Blood Cells # 0.0 Sodium Level 151 H Potassium Level 4.2 Chloride Level 114 H Carbon Dioxide Level 33 H Anion Gap 4 L Blood Urea Nitrogen 39 #H Creatinine 1.69 #H Est Glomerular Filtrat Rate mL/min 46 L Glucose Level 146 Calcium Level 7.8 L Phosphorus Level 2.0 L Magnesium Level 3.0 H Creatine Kinase 01117 #H Consultation Date/Type/Reason Admit Date/Time Jun 25, 2018 at 10:52 Type of Consult Neurology Date/Time of Note DATE: 06/28/18 TIME: 11:44 24 HR Interval Summary Free Text/Dictation Continues critical care. On fentanyl/propofol/versed for sedation. Pt reportedly agitated when sedation titrated down. Subjective hx not possible: pt non-verbal, pt critical status Exam Vital Signs Vitals Vital Signs Date Temp Pulse Resp B/P (MAP) Pulse Ox O2 O2 Flow FiO2 Time Delivery Rate 06/28/18 90 22 119/84 95 11:00 (96) 06/28/18 101.7 10:39 12/24/18 Mechanica 10:00 l Ventilato r 06/28/18 35 08:00 06/25/18 15.0 11:41 Intake and Output 06/27/18 06/27/18 06/28/18 1515:00 23:00 07:00 IntakeIntake Total 1185.0 ml 1160.271 ml 1595.911 ml OutputOutput Total 765 ml 905 ml 925 ml BalanceBalance 420.0 ml 255.271 ml 670.911 ml Exam PE: Gen Appearance: No Apparent Distress HEENT: Intubated Cardiovascular: Regular rate Abdomen: Soft Extremities: Dry NE: The patient was obtunded and nonverbal. Cranial nerve examination was limited by mental status. Pupils were equal and reactive to light. There was no afferent pupillary defect. Funduscopic examination was limited. Face was grossly symmetric, w/ present corneal and cough reflexes. Tone was normal. Muscle bulk was normal. I did not see fasciculations. The pa tient withdrew to noxious stimulation x 4. Coordination and gait testing was limited by mental status. Arm and leg reflexes were within normal limits and symmetric. Milian's sign was absent. Plantar responses were flexor. KM CH NP Jun 28, 2018 11:44 EUGENIA VILLEGAS Jun 29, 2018 08:01
--- NOTE | 2018-06-28 12:48 | NUR ---
PICC Insertion. This nurse to ICU bed 105 for peripherally inserted central catheter (PICC) insertion. Patient intubated and on vent with sedation. Procedure reviewed with family and agreed to proceed. Signed consent on chart for PICC. RUE prepped with chlorhexidene, then maximum barrier drape applied. 5 FR double lumen Arrow Power PICC inserted into brachial vein, blue tip intact, using U/S guidance and sterile technique. 40cm internal,0cm exposed. CXR performed; tip confirmed in lower 1/3 SVC. Sterile dressing applied. Patient tolerated procedure well.
[2018-06-28] MEDS ORDERED: ASPIRIN (EC) 81 MG TAB PO SCH (15:00)
[2018-06-28] MEDS ORDERED: VANCOMYCIN IV PER PHARMACY XX SCH (15:00)
--- NOTE | 2018-06-28 15:21 | NUR ---
37 YO TO START IV VANCO PER RX PROTOCOL FOR FEVERS/LEUKOCYTOSIS/ENTEROC UTI/?R/O ASP PNA CONCURRENT ABXS: LEVAQUIN + ZOSYN WT= 88.5KG(06/28) HT ~ 69" BUN/SCR= 39/1.69 UOP = 2545ML(NON-OLIGURIC RENAL FAILURE) A/P: ACUTE RENAL FAILURE/RHABDO, CREATININE TRENDING DOWN. WILL LOAD WITH 1.5GM IVPB X1, F/B 1GM IVPB Q12H FOR ESTIMATED GOAL VANCO TROUGH 10-20.
--- NOTE | 2018-06-28 16:20 | CONS ---
Date/Time of Note Date/Time of Note DATE: 06/28/18 TIME: 16:18 Assessment/Plan Assessment/Plan Chief Complaint/Hosp Course Assessment: Mildly elevated troponin - likely type 2 NSTEMI versus rhabdomyolysis Cardiomyopathy, LVEF 40% - ischemic vs drug use Polysubstance abuse - urine toxicology positive for opiates, benzodiazepines, cocaine, cannabinoids Acute metabolic encephalopathy Acute hypoxic respiratory failure - intubated and on mechanical ventilation Aspiration and probable pneumonia Acute kidney injury Recommendations: -echocardiogram showed LVEF 40% with global hypokinesis -will eventually need coronary evaluation once acute issues resolved Consultation Date/Type/Reason Admit Date/Time Jun 25, 2018 at 10:52 Initial Consult Date 06/26/18 Type of Consult Cardiology 24 HR Interval Summary Free Text/Dictation Fever to 102 F. Renal function improving. Remains intubated. Detailed Summary Additional Comments Unable to obtain review of systems, patient is intubated. Exam/Review of Systems Vital Signs Vitals Vital Signs Date Temp Pulse Resp B/P (MAP) Pulse Ox O2 O2 Flow FiO2 Time Delivery Rate 06/28/18 86 24 110/78 99 15:30 (89) 06/28/18 Mechanica 15:00 l Ventilato r 06/28/18 101.5 12:00 06/28/18 35 08:00 06/25/18 15.0 11:41 Intake and Output 06/27/18 06/27/18 06/28/18 1515:00 23:00 07:00 IntakeIntake Total 1185.0 ml 1160.271 ml 1595.911 ml OutputOutput Total 765 ml 905 ml 925 ml BalanceBalance 420.0 ml 255.271 ml 670.911 ml Exam Constitutional: No alert, No oriented Psych: confusion; No nl mood/affect Head: normocephalic, atraumatic Eyes: nl conjunctiva, nl lids ENMT: nl external ears & nose, nl nasal mucosa & septum Neck: supple, non-tender Respiratory: crackles/rales, diminished breath sounds Cardiovascular: regular rate and rhythm Gastrointestinal: soft, non-tender Musculoskeletal: nl extremities to inspection Extremities: No cyanosis, No clubbing, No edema Neurological: No nl mental status, No nl speech Medications Medications Current Medications Ondansetron HCl (Zofran Inj) 4 mg Q6H PRN IV NAUSEA AND/OR VOMITING; Start 06/25/18 at 14:00 Albuterol (Proventil 0.083% (Neb)) 2.5 mg Q2H RESP THERAPY PRN NEB SHORTNESS OF BREATH; Start 06/25/18 at 14:00 Acetaminophen (Tylenol Supp) 650 mg Q4H PRN IN PAIN LEVEL 1-3 OR FEVER Last administered on 06/26/18 04:00; Admin Dose 650 MG; Start 06/25/18 at 14:00 Lorazepam (Ativan) 1 mg Q2H PRN IV ANXIETY Last administered on 06/28/18 05:12; Admin Dose 1 MG; Start 06/25/18 at 14:00 Piperacillin Sod/ Tazobactam Sod 100 ml @ 200 mls/hr Q8 IVPB Last administered on 06/28/18 13:54; Admin Dose 200 MLS/HR; Start 06/25/18 at 14:00 Fentanyl 100 ml @ 2.5 mls/hr TITRATE IV Last administered on 06/28/18 09:04; Admin Dose 10 MLS/HR; Start 06/25/18 at 17:30 Midazolam HCl 50 ml @ 1 mls/hr TITRATE IV Last administered on 06/28/18 10:35; Admin Dose 10 MLS/HR; Start 06/25/18 at 23:00 Levofloxacin/ Dextrose 50 ml @ 50 mls/hr Q24H IVPB Last administered on 06/28/18 08:40; Admin Dose 50 MLS/HR; Start 06/26/18 at 09:00 Pantoprazole (Protonix Iv) 40 mg BID@06,18 IV Last administered on 06/28/18 05:12; Admin Dose 40 MG; Start 06/26/18 at 18:00 Acetaminophen (Tylenol Liquid) 650 mg Q4H PRN GTB MILD PAIN(1-3)OR ELEVATED TEMP Last administered on 06/28/18 10:39; Admin Dose 650 MG; Start 06/27/18 at 01:30 Propofol 100 ml @ 2.757 mls/ hr Q12H IV Last administered on 06/28/18 10:07; Admin Dose 5.51 MLS/HR; Start 06/27/18 at 22:00 Sodium Chloride 1,000 ml @ 100 mls/hr Q10H IV Last administered on 12/24/18at 09:14; Admin Dose 100 MLS/HR; Start 06/28/18 at 09:00 IV Flush (NS 10 ml) 10 ml PRN PRN IV FLUSH LINE; Start 06/28/18 at 13:00 Heparin Sodium (Porcine) (Heparin (5000 Units/1ml)) 5,000 unit BID SC ; Start 06/28/18 at 21:00 Vancomycin HCl (Vanco Iv Per Pharmacy) VANCOMYCIN PER PHARMACY PER PROTOCOL XX ; Start 06/28/18 at 15:00 Vancomycin HCl 1.5 gm/Sodium Chloride 250 ml @ 83.333 mls/ hr ONCE@1700 IVPB ; Start 06/28/18 at 17:00; Stop 06/28/18 at 23:00 Vancomycin HCl 250 ml @ 125 mls/hr Q12H IVPB ; Start 06/29/18 at 05:00 Aspirin (Aspirin) 81 mg DAILY NGT ; Start 06/28/18 at 16:30 IRVIN COLLAZO MD Jun 28, 2018 16:20
[2018-06-28] MEDS: ASPIRIN 81 MG TAB NGT SCH (16:21)
[2018-06-28] MEDS ORDERED: VANCOMYCIN 1.5 GM in SOD CHLORIDE 0.9% 250 ML IVPB SCH (17:00)
--- NOTE | 2018-06-28 18:38 | NUR ---
PT STABLE ON VENTILATOR. PICC LINE INSERTED THIS AM IN R UPPER ARM; CXR CONFIRMED PLACEMENT; ALL LINES CHANGED. PT RAN TEMP OF 101.7, INSERTED RECTAL PROBE AND INITIATED COOLING MEASURES; TOOK URINE, BLOOD AND SPUTUM CULTURES;TEMP DECREASED. URINE OUTPUT ADEQUATE. FAMILY UPDATED ON PT PLAN OF CARE. WILL ENDORSE TO LINE LEAD NURSE.
[2018-06-28] MEDS: HEPARIN 5,000 UNIT/1 ML VIAL SC SCH (21:57)
[2018-06-29] VITALS (35 sets, daily range): BP systolic 97–119; BP diastolic 19–77; PULSE 69–92; RESP 18–35
[2018-06-29] MEDS: ACETAMINOPHEN 650MG/20.3ML CUP GTB PRN (01:42)
[2018-06-29] MEDS: MIDAZOLAM (DRIP) 50 mg/50 mL 50 ML IV SCH ×5 (01:50→23:59)
[2018-06-29] MEDS: FENTAnyl (DRIP) 1000 mcg/100mL 100 ML IV SCH ×3 (03:01→21:39)
--- NOTE | 2018-06-29 03:37 | NUR ---
NEW WOUNDS Bilateral cheek wounds noted per RT when changing ET tube florentino. Appears to be DTIs. No family at bedside at this time to educate. Pt. intubated, sedated, and does not follow commands. Appropriate wound treatments to be performed. Appropriate documentation performed.
[2018-06-29] MEDS: PROPOFOL 100 ML IV SCH ×4 (04:57→22:49)
[2018-06-29] MEDS ORDERED: VANCOMYCIN 1 GM 250 ML IVPB SCH (05:00)
[2018-06-29] MEDS: PANTOPRAZOLE 40 MG INJ IV SCH ×2 (05:32→17:54)
[2018-06-29] MEDS: SOD CHLORIDE 0.45% 1,000 ML IV SCH ×2 (05:32→16:43)
[2018-06-29] MEDS: PIPER-TAZO 3.375 GM IV (PMX) 100 ML IVPB SCH ×3 (05:32→21:37)
[2018-06-29] MEDS: LORAZEPAM 4 MG/ML VIAL IV PRN (05:37)
--- NOTE | 2018-06-29 07:59 | PN ---
Date/Time of Note Date/Time of Note DATE: 06/29/18 TIME: 07:54 Assessment/Plan VTE Prophylaxis Risk score (from Ns)>0 risk: 4 SCD applied (from Ns): Yes Pharmacological prophylaxis: heparin Lines/Catheters IV Catheter Type (from Nrsg): PICC Line Central line still needed: Yes Urinary Cath still in place: Yes Reason Cath still needed: other (indicate) Assessment/Plan Result Diagram: 06/29/18 0506 06/29/18 0506 Results 24hrs Laboratory Tests Test 06/29/18 05:06 White Blood Count 11.3 #H Red Blood Count 3.03 L Hemoglobin 9.4 L Hematocrit 28.0 L Mean Corpuscular Volume 92.4 Mean Corpuscular Hemoglobin 31.0 Mean Corpuscular Hemoglobin Concent 33.6 Red Cell Distribution Width 13.8 Platelet Count 155 Mean Platelet Volume 10.1 Immature Granulocytes % 0.600 H Neutrophils % 64.4 Lymphocytes % 19.1 Monocytes % 9.5 Eosinophils % 6.0 Basophils % 0.4 Nucleated Red Blood Cells % 0.0 Immature Granulocytes # 0.070 H Neutrophils # 7.3 Lymphocytes # 2.2 Monocytes # 1.1 H Eosinophils # 0.7 H Basophils # 0.1 Nucleated Red Blood Cells # 0.0 Prothrombin Time 14.4 Prothrombin Time Ratio 1.1 INR International Normalized Ratio 1.10 Activated Partial Thromboplast Time 35.1 H Sodium Level 150 H Potassium Level 4.0 Chloride Level 114 H Carbon Dioxide Level 30 Anion Gap 6 Blood Urea Nitrogen 26 #H Creatinine 1.22 Est Glomerular Filtrat Rate mL/min > 60 Glucose Level 104 # Calcium Level 7.4 L Phosphorus Level 2.1 L Magnesium Level 2.4 Subjective 24 Hr Interval Summary Free Text/Dictation subjective: Patient seen and examined. Intubated and sedated for comfort, but no pressor support. fever improving Objective: GENERAL: Intubated and comfortably sedated HEENT: EDMOND, Intubated, Vent settings noted , high peep of 8 LUNGS: diffusely diminished and coarse BS HEART: S1, S2. No murmur, gallops or rubs. ABDOMEN: Soft, non distended, Normoactive bowel sounds. GENITOURINARY: Normal male external genitalia, Potter to bedside drainage with good UO EXTREMITIES: Trace edema bilaterally NEUROLOGIC: The patient is currently sedated. SKIN: Otherwise, unremarkable. assessment and plan: 37 yo M found unresponsive outside his home garage managed in ICU as follows: 1. Acute encephalopathy -toxic metabolic r/o HIE -multiple substances including cocaine / BZD / THC in urine drug screen -responded to narcan by EMS -Patient initially had complete RUE paresis, but this seems to have improved -patient likely has suffered neurologic insult, CT brain negative, needs MRI when more stable 2. Acute Resp failure: -s/p ET intubation and remains Vent dependent -Pulm following and managing 3. Renal failure: resolved -acute, ?ATN from drugs versus severe dehydration -nephro managing 4. Severe hypothermia: resolved -s/p warming measures 5. Metabolic acidosis: improved -2/2 renal failure and drugs, 6. Severe Rhabdomyolysis -Fluid management per nephrology -levels improving 7. Hyperkalemia: 2/2 renal failure -no EKG changes -repeat levels at this time, intervene with cocktail if indicated 8. Sepsis with roz Pneumonia, ?aspiration -Repeat blood cultures pending -Continue current abx, await ID recs 9. Elevated troponins vs NSTEMI -resume aspirin -echocardiogram showed LVEF 40% with global hypokinesis -will eventually need coronary evaluation once acute issues resolved 10. Multisubstance abuse -urine drug screen positive for cocaine / BZD / THC / Opiate -will need counselling if / when mentation improves 11. Enterococcus UTI -continue abx 12. Hypernatremia and hypophosphatemia: - IVF changed per Nephro, continue to trend -patient also on free water 13. S/p Epistaxis -aspirin resumed, continue to monitor -remains on PPI BID Prophylaxis: Pepcid / Heparin FEN: Tube feedings / 1/2 NS @100cc /hr, ?change to d5 Further evaluation and treatment will be based on clinical course CRITICAL CARE TIME: >35 mins of which more than half was spent at the bedside and during counselling Exam/Review of Systems Vital Signs Vitals Vital Signs Date Temp Pulse Resp B/P (MAP) Pulse Ox O2 O2 Flow FiO2 Time Delivery Rate 06/29/18 99.9 06:50 06/29/18 90 29 111/62 94 Mechanical 06:00 (78) Ventilator 06/29/18 40 05:20 06/25/18 15.0 11:41 Intake and Output 12/06/28/18 06/29/18 1515:00 23:00 07:00 IntakeIntake Total 1939.858 ml 1997.401 ml 1940.675 ml OutputOutput Total 935 ml 990 ml 860 ml BalanceBalance 1004.858 ml 1007.401 ml 1080.675 ml Medications Medications Current Medications Ondansetron HCl (Zofran Inj) 4 mg Q6H PRN IV NAUSEA AND/OR VOMITING; Start 06/25/18 at 14:00 Albuterol (Proventil 0.083% (Neb)) 2.5 mg Q2H RESP THERAPY PRN NEB SHORTNESS OF BREATH; Start 06/25/18 at 14:00 Acetaminophen (Tylenol Supp) [address] PAIN LEVEL 1-3 OR FEVER Last administered on 06/26/18at 04:00; Admin Dose 650 MG; Start 06/25/18 at 14:00 Lorazepam (Ativan) 1 mg Q2H PRN IV ANXIETY Last administered on 06/29/18at 05:37; Admin Dose 1 MG; Start 06/25/18 at 14:00 Piperacillin Sod/ Tazobactam Sod 100 ml @ 200 mls/hr Q8 IVPB Last administered on 06/29/18at 05:32; Admin Dose 200 MLS/HR; Start 06/25/18 at 14:00 Fentanyl 100 ml @ 2.5 mls/hr TITRATE IV Last administered on 06/29/18at 03:01; Admin Dose 10 MLS/HR; Start 06/25/18 at 17:30 Midazolam HCl 50 ml @ 1 mls/hr TITRATE IV Last administered on 06/29/18at 07:25; Admin Dose 10 MLS/HR; Start 06/25/18 at 23:00 Levofloxacin/ Dextrose 50 ml @ 50 mls/hr Q24H IVPB Last administered on 06/28/18at 08:40; Admin Dose 50 MLS/HR; Start 06/26/18 at 09:00 Pantoprazole (Protonix Iv) 40 mg BID@06,18 IV Last administered on 06/29/18at 05:32; Admin Dose 40 MG; Start 06/26/18 at 18:00 Acetaminophen (Tylenol Liquid) 650 mg Q4H PRN GTB MILD PAIN(1-3)OR ELEVATED TEMP Last administered on 06/29/18 01:42; Admin Dose 650 MG; Start 06/27/18 at 01:30 Propofol 100 ml @ 2.757 mls/ hr Q12H IV Last administered on 06/29/18 04:57; Admin Dose 13.785 MLS/HR; Start 06/27/18 at 22:00 Sodium Chloride 1,000 ml @ 100 mls/hr Q10H IV Last administered on 06/29/18 05:32; Admin Dose 100 MLS/HR; Start 06/28/18 at 09:00 IV Flush (NS 10 ml) 10 ml PRN PRN IV FLUSH LINE; Start 06/28/18 at 13:00 Heparin Sodium (Porcine) (Heparin (5000 Units/1ml)) 5,000 unit BID SC Last administered on 06/28/18at 21:57; Admin Dose 5,000 UNIT; Start 06/28/18 at 21:00 Vancomycin HCl (Vanco Iv Per Pharmacy) VANCOMYCIN PER PHARMACY PER PROTOCOL XX ; Start 06/28/18 at 15:00 Vancomycin HCl 250 ml @ 125 mls/hr Q12H IVPB Last administered on 06/29/18 05:33; Admin Dose 125 MLS/HR; Start 06/29/18 at 05:00 Aspirin (Aspirin) 81 mg DAILY NGT Last administered on 06/28/18at 16:21; Admin Dose 81 MG; Start 06/28/18 at 16:30 JOSIAS HUANG Jun 29, 2018 07:59
--- NOTE | 2018-06-29 08:28 | CONS ---
Date/Time of Note Date/Time of Note DATE: 06/29/18 TIME: 08:25 Assessment/Plan Assessment/Plan Additional Assessment/Plan Ventilator settings; AC of 18, tidal volume 500, PEEP of 8, 40% FiO2. Patient is currently on propofol 25 mics per kilogram per minute, fentanyl 100 mics per hour, Versed 10 mg/h. Assessment recommendations; 1. Patient admitted with respiratory failure due to drug overdose with extensive bilateral pneumonia possibly aspiration, however there is been significant improvement in oxygenation. Chest x-ray however still showing persistent bilateral infiltrates. Patient currently on appropriate antimicrobial regimen. 2. Enterococcus UTI. 3. Rhabdomyolysis with interval improvement. 4. Acute renal insufficiency with interval improvement as well. 5. Correction of metabolic acidosis. 6. Shock liver with improvement as well. 7. Anemia and thrombocytopenia. 8. Patient exhibiting significant agitation whenever sedation dosing is decreased, indicative of drug withdrawal. Continue current supportive care. Obtain follow-up chest x-ray 24 hours. 35 minutes of critical care time was spent evaluating the patient. Consultation Date/Type/Reason Admit Date/Time Jun 25, 2018 at 10:52 Initial Consult Date 06/26/18 Type of Consult Pulmonary/critical care History of presenting illness; patient is a 37-year-old male who was brought into the hospital yesterday after he was found down outside his house. The patient did have a pulse and apparently a very brief CPR was done with revival of vital signs. The patient was then transferred to hospital and then subsequently transferred to ICU where he required intubation last evening. By the time I saw the patient, patient is orally intubated and sedated. History was obtained from medical records as well as from patient's aunt who was present in the room. According to the aunt, patient was found outside of their house slumped over without any prior known illness. Patient apparently took some illicit drugs. Past medical history; next 1. No medical history. Current medications; reviewed. Allergies; none. Social history; positive for smoking and drug abuse. Family history; patient is , has a supportive family and . 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 Review of system; unable to be obtained. General exam; young male, orally intubated, sedated, currently no distress. 24 HR Interval Summary Free Text/Dictation Patient's condition remains critical. Requiring high-dose sedation. Patient exhibits significant agitation whenever sedation bruising is decreased. Patient however has remained hemodynamically stable. General exam; young male, orally intubated, sedated, currently in no distress. Exam/Review of Systems Vital Signs Vitals Vital Signs Date Temp Pulse Resp B/P (MAP) Pulse Ox O2 O2 Flow FiO2 Time Delivery Rate 06/29/18 76 08:00 06/29/18 99.9 06:50 06/29/18 29 111/62 94 Mechanical 06:00 (78) Ventilator 06/29/18 40 05:20 06/25/18 15.0 11:41 Intake and Output 06/28/18 06/28/18 06/29/18 1515:00 23:00 07:00 IntakeIntake Total 1939.858 ml 1997.401 ml 1940.675 ml OutputOutput Total 935 ml 990 ml 860 ml BalanceBalance 1004.858 ml 1007.401 ml 1080.675 ml Exam H EENT exam; supple neck, no JVD. No lymphadenopathy. Midline trachea. No thyromegaly. Orally intubated. Patient has good dentition. Pupils are midsize and reactive to light. Chest exam; diminished but clear breath sounds. S1-S2 audible, no murmurs. Regular rhythm. Abdomen exam; soft, no organomegaly. Bowel sounds audible. Nondistended. Extremity exam; no peripheral edema clubbing. Pulses 2+. TRIPE FINISHER exam; patient is sedated. Medications Medications Current Medications Ondansetron HCl (Zofran Inj) 4 mg Q6H PRN IV NAUSEA AND/OR VOMITING; Start 06/25/18 at 14:00 Albuterol (Proventil 0.083% (Neb)) 2.5 mg Q2H RESP THERAPY PRN NEB SHORTNESS OF BREATH; Start 06/25/18 at 14:00 Acetaminophen (Tylenol Supp) 650 mg Q4H PRN NM PAIN LEVEL 1-3 OR FEVER Last administered on 06/26/18at 04:00; Admin Dose 650 MG; Start 06/25/18 at 14:00 Lorazepam (Ativan) 1 mg Q2H PRN IV ANXIETY Last administered on 06/29/18at 05:37; Admin Dose 1 MG; Start 06/25/18 at 14:00 Piperacillin Sod/ Tazobactam Sod 100 ml @ 200 mls/hr Q8 IVPB Last administered on 06/29/18 05:32; Admin Dose 200 MLS/HR; Start 06/25/18 at 14:00 Fentanyl 100 ml @ 2.5 mls/hr TITRATE IV Last administered on 06/29/18 03:01; Admin Dose 10 MLS/HR; Start 06/25/18 at 17:30 Midazolam HCl 50 ml @ 1 mls/hr TITRATE IV Last administered on 06/29/18 07:25; Admin Dose 10 MLS/HR; Start 06/25/18 at 23:00 Levofloxacin/ Dextrose 50 ml @ 50 mls/hr Q24H IVPB Last administered on 06/28/18 08:40; Admin Dose 50 MLS/HR; Start 06/26/18 at 09:00 Pantoprazole (Protonix Iv) 40 mg BID@06,18 IV Last administered on 06/29/18 05:32; Admin Dose 40 MG; Start 06/26/18 at 18:00 Acetaminophen (Tylenol Liquid) 650 mg Q4H PRN GTB MILD PAIN(1-3)OR ELEVATED TEMP Last administered on 06/29/18 01:42; Admin Dose 650 MG; Start 06/27/18 at 01:30 Propofol 100 ml @ 2.757 mls/ hr Q12H IV Last administered on 06/29/18 04:57; Admin Dose 13.785 MLS/HR; Start 06/27/18 at 22:00 Sodium Chloride 1,000 ml @ 100 mls/hr Q10H IV Last administered on 06/29/18 05:32; Admin Dose 100 MLS/HR; Start 06/28/18 at 09:00 IV Flush (NS 10 ml) 10 ml PRN PRN IV FLUSH LINE; Start 06/28/18 at 13:00 Heparin Sodium (Porcine) (Heparin (5000 Units/1ml)) 5,000 unit BID SC Last administered on 06/28/18 21:57; Admin Dose 5,000 UNIT; Start 06/28/18 at 21:00 Vancomycin HCl (Vanco Iv Per Pharmacy) VANCOMYCIN PER PHARMACY PER PROTOCOL XX ; Start 06/28/18 at 15:00 Vancomycin HCl 250 ml @ 125 mls/hr Q12H IVPB Last administered on 06/29/18 05:33; Admin Dose 125 MLS/HR; Start 06/29/18 at 05:00 Aspirin (Aspirin) 81 mg DAILY NGT Last administered on 06/28/18at 16:21; Admin Dose 81 MG; Start 06/28/18 at 16:30 DERREK ALBERT Jun 29, 2018 08:28
[2018-06-29] MEDS: ASPIRIN 81 MG TAB NGT SCH (09:05)
[2018-06-29] MEDS: LEVOFLOXACIN 250MG/D5W (PMX) 50 ML IVPB SCH (09:05)
[2018-06-29] MEDS: HEPARIN 5,000 UNIT/1 ML VIAL SC SCH ×2 (09:07→21:38)
--- NOTE | 2018-06-29 11:01 | PN ---
DATE: 06/29/2018 SUBJECTIVE: The patient remains critically ill on ventilatory support. The patient had excellent ur inary output. No hemoptysis, hematemesis has been noted. OBJECTIVE: VITAL SIGNS: Blood pressure 111/62, respirations 29, pulse 90, temperature 100.5. HEENT: Head is normocephalic. NECK: Supple. HEART: Regular rate. LUNGS: Show diminished breath sounds at the base. ABDOMEN: Soft, nontender to palpation without rebound or guarding. EXTREMITIES: Negative for clubbing, cyanosis, no edema. DERMATOLOGIC: No rashes. MUSCULOSKELETAL: No joint effusion. NEUROLOGIC: No change in exam. MEDICATIONS: Reviewed. LABORATORY DATA: Shows sodium 150, potassium 4.0, chloride 114, BUN 26, creatinine 1.22. White coun t 11.3, hemoglobin 9.4, platelet count is 155. The patient's urinalysis was reviewed. INR was revie thu. IMAGING: Chest x-ray was reviewed, shows stable infiltrates and cultures were reviewed. ASSESSMENT AND PLAN: 1. Nonoliguric acute kidney injury with previously unknown baseline creatinine. Etiology secondary to acute tubular necrosis due to pigment associated acute kidney injury from rhabdomyolysis, ischemic hypoperfusion and nephrotoxicity from polysubstance abuse. The patient entered recovery phase of ac [place] tubular necrosis. His renal function has continued to improve. Will continue IV hydration. Con tinue supportive care, renally dose all meds. 2. Rhabdomyolysis. The patient's CK levels have been improving. The patient is status post bicarbo yousif therapy. Continue gentle IV hydration, monitor electrolytes closely. 3. Mineral bone disorder. The patient is hypophosphatemic. We will replete with potassium phosphat e. 4. Anemia. Monitor hemoglobin and hematocrit levels. 5. Lactic acidosis, improved. 6. Ventilator dependent respiratory failure. Vent settings and ABG was reviewed. Continue to monit or. Follow up with pulmonary. 7. Sepsis secondary to bilateral pneumonia. Continue current treatment plan. 8. Acute encephalopathy, etiology is secondary to polysubstance abuse, toxic metabolic. Continue to monitor. 9. Hyperkalemia, resolved. 10. Elevated troponin from demand ischemia. 11. Cardiomyopathy. The patient's ejection fraction 40%. Continue to monitor and will require card iac catheterization once stable. 12. History of polysubstance abuse. Please note I spent over 30 minutes of critical care time with this patient. Dictated By: UMAIR VALDEZ/MELOYD Conf#: [id number] DID#: [id number]
--- NOTE | 2018-06-29 11:48 | NUR ---
VANCO PER RX DAY #2 OF VANCOMYCIN PER RX BUN/SCR: 26/1.22 WBC: 11.3 TMAX: 100.6 RENAL FUNCTION IMPROVING. ADJUST DOSE TO VANCOMYCIN 1.25GM IV Q12HR. PHARMACY TO FOLLOW
--- NOTE | 2018-06-29 12:40 | CONS ---
DATE OF ADMISSION: 06/25/2018 DATE OF CONSULTATION: 06/29/2018 TYPE OF CONSULTATION: Infectious Disease. REASON FOR CONSULTATION: Antibiotic management. HISTORY OF PRESENT ILLNESS: Mr. Canales is a 37-year-old male who was found unconscious on the floor in the garage by his on the . She had last seen him at 10:00 p.m. the previous night. He was noted to have a drug paraphernalia lying upon him. The patient had pinpoint pupils and administered Narcan. He then became agitated and had emesis. He was noted not to move his right upper extremity and is severely hypothermic amongst other things. On admission, he was altered. His white count was 22.1, H and H of 13.7 and 41.7, platelet count 303,000. BUN and creatinine 21/2.05, glucose of 145. Patient was started on Zosyn. His problems included acute encephalopathy with acute right upper ex tremity paresis, toxic metabolic encephalopathy, multi-substance abuse with cocaine, BZD and THC in t he urine drug screen. Response to Narcan. CT scan of the brain negative. Respiratory failure. He w as placed initially on BiPAP, renal failure with BUN and creatinine of 21 and 2.05, sepsis with bilat eral pneumonia, questionable aspiration. Rhabdomyolysis, metabolic acidosis, elevated troponins vers us non-STEMI, multi-substance abuse. HOSPITAL COURSE: The patient's blood cultures were negative. His urine grew out Enterococcus specie s. C. difficile was negative. His white count has come down to 11.3. BUN and creatinine came down to 39/ and now 26/1.22. DENNIS antimicrobial mitochondrial antibody and smooth muscle antibody is pending. Serologies are nonreactive. A chest x-ray on the showed patchy bilateral upper lobe a nd right perihilar infiltrates. Renal ultrasound shows slightly echogenic kidneys consistent with me dical renal disease. The patient was intubated on the , extensive bilateral pulmonary airspace o pacifications likely reflecting multifocal pneumonia, pulmonary edema, ARDS increased, nasogastric tu be was placed and may be called in the pharynx and should be removed. Repeat chest x-ray showed an e nteric catheter placed in the stomach. He also had a left IJ central venous catheter placed. He had a new NG tube placed in the stomach on the . ET tube present. Patchy infiltrates present. PIC C line was placed on the . Chest x-ray today, ET tube, NG tube, right arm PICC line. Bilateral air space disease is unchanged. Patient was seen by numerous consultants. He was seen by Dr. Fabian on the . Respiratory failure was noted, sepsis was noted, lobar pneumonia, substance abuse, rhab domyolysis. The patient has received some IV fluids. Will have to be somewhat careful with regard to his renal insufficiency. Palsy of the right upper extremity seen by Dr. Kaufman on the , cardiopu lmonary arrest with successful resuscitation remained sedated, so he had a cardiac arrest which he wa s resuscitated, rhabdomyolysis, traumatic injury, now in post-ATN diuresis phase, remains on ventilat or support. Remains on antibiotic therapy. On the , the patient remained unresponsive with acut e toxic metabolic encephalopathy. Right upper extremity paresis, which seems to have improved, respi ratory failure. Today, white count is 11.3, BUN and creatinine 26/1.22. He was seen by Dr. Kaufman to day, persistent bilateral infiltrates, enterococcus UTI, rhabdomyolysis, acute renal insufficiency, s hock liver with improvement, anemia and thrombocytopenia, significant agitation whenever sedation is decreased. HOSPITAL COURSE: The patient was seen by Dr. Sheppard. Nonoliguric renal failure is noted. Etiology is secondary to acute tubular necrosis due to treatment-associated acute renal injury from rhabdomyol ysis, ischemic hypoperfusion and nephrotoxicity from polysubstance abuse. PAST MEDICAL HISTORY: Operations as outlined. FAMILY HISTORY: Noncontributory. SOCIAL HISTORY: The patient uses cocaine and marijuana and occasional alcohol. ALLERGIES: NONE TO PENICILLIN, SULFA OR FOODS. MEDICATIONS: Per chart. REVIEW OF SYSTEMS: Noncontributory. PHYSICAL EXAMINATION: GENERAL: The patient is intubated on a respirator. VITAL SIGNS: Stable. He is afebrile. SKIN: Without generalized rash. HEENT: He has an ET tube and an NG tube. SKIN: Without generalized rash. HEENT: Within normal limits. NECK: Supple. LYMPH NODES: None palpable. CHEST: Decreased breath sounds at the bases. HEART: Without murmur or gallop. ABDOMEN: Soft, nontender, without organosplenomegaly or masses. EXTREMITIES: Without cyanosis, clubbing, or edema. RECTAL AND GENITAL: Deferred. NEUROLOGIC: No focal neurological abnormalities. The patient is sedated, so difficult to evaluate. He also has right upper extremity paresis. IMPRESSION AND PLAN: The patient is status post cardiac arrest, status post rhabdomyolysis related t o drug abuse, renal insufficiency. He has bilateral infiltrates. He is on Vancomycin, Levaquin and Zosyn. Levaquin may be extraneous and within the next 24 hours I plan to stop it but at this point w e will continue the patient on this current therapy and await his evolution of the toxic metabolic en cephalopathy. Hopefully, he will regain his orientation. I will dictate my findings to the hospital ist and to the various consultants. Dictated By: ANIYAH STEIN MD, JD/MELODY Conf#: [id number] DID#: [id number] CC: JOSIAS HUANG MD; IRVIN COLLAZO MD;*End*
[2018-06-29] MEDS: VANCOMYCIN 1.25 GM in SOD CHLORIDE 0.9% 250 ML IVPB SCH (17:54)
--- NOTE | 2018-06-29 19:09 | NUR ---
Report given to oncoming nurse. VSS
[2018-06-30] VITALS (39 sets, daily range): BP systolic 97–115; BP diastolic 48–75; PULSE 74–92; RESP 11–35
[2018-06-30] MEDS: SOD CHLORIDE 0.45% 1,000 ML IV SCH ×2 (02:19→13:41)
[2018-06-30] MEDS: PROPOFOL 100 ML IV SCH ×4 (03:46→20:03)
[2018-06-30] MEDS: MIDAZOLAM (DRIP) 50 mg/50 mL 50 ML IV SCH ×3 (04:34→21:20)
[2018-06-30] MEDS: VANCOMYCIN 1.25 GM in SOD CHLORIDE 0.9% 250 ML IVPB SCH ×2 (05:07→16:49)
[2018-06-30] MEDS: PIPER-TAZO 3.375 GM IV (PMX) 100 ML IVPB SCH ×3 (05:53→21:18)
[2018-06-30] MEDS: PANTOPRAZOLE 40 MG INJ IV SCH ×2 (05:53→17:03)
[2018-06-30] MEDS ORDERED: FUROSEMIDE 20 MG INJ IV ONE (08:00)
[2018-06-30] MEDS: FENTAnyl (DRIP) 1000 mcg/100mL 100 ML IV SCH ×2 (08:18→18:12)
[2018-06-30] MEDS: ASPIRIN 81 MG TAB NGT SCH (08:25)
[2018-06-30] MEDS: LEVOFLOXACIN 250MG/D5W (PMX) 50 ML IVPB SCH (08:26)
[2018-06-30] MEDS: HEPARIN 5,000 UNIT/1 ML VIAL SC SCH ×2 (08:26→21:17)
--- NOTE | 2018-06-30 08:35 | CONS ---
Date/Time of Note Date/Time of Note DATE: 06/30/18 TIME: 08:32 Consult Date/Type/Reason Admit Date/Time Jun 25, 2018 at 10:52 Initial Consult Date 06/26/18 Type of Consult Pulmonary Subjective Patient's condition remains critical but stable. Has remained hemodynamically stable. General exam; young male, orally intubated, sedated, currently in no distress. Objective Vital Signs Date Temp Pulse Resp B/P (MAP) Pulse Ox O2 O2 Flow FiO2 Time Delivery Rate 06/30/18 80 21 102/62 98 Mechanical 06:00 (75) Ventilator 06/30/18 40 05:06 06/30/18 98.7 04:00 Intake and Output 06/29/18 06/29/18 06/30/18 1515:00 23:00 07:00 IntakeIntake Total 1335.28 ml 2135.600 ml 2043.252 ml OutputOutput Total 860 ml 960 ml 1000 ml BalanceBalance 475.28 ml 1175.600 ml 1043.252 ml Exam H EENT exam; supple neck, no JVD. No lymphadenopathy. Midline trachea. No thy romegaly. Orally intubated. Pupils are small bilaterally. Patient has fair dentition. No neck masses. Chest exam; diminished but clear breath sounds. No added sounds. S1-S2 audible, no murmurs. Regular rhythm. Abdomen exam; soft, no organomegaly. Bowel sounds audible. Nondistended. Extremity exam; 1+ anasarca. CLIENT COORDINATOR exam; patient is sedated. Vent Setting Ventilator Support Mode: AC, VC plus Fraction of Inspired Oxygen pe: 40 Positive End Expiratory Pressu: 8.0 Results/Medications Result Diagram: 06/30/18 0430 06/30/18 0430 Results 24 hrs Laboratory Tests Test 06/30/18 04:30 White Blood Count 11.9 H Red Blood Count 3.00 L Hemoglobin 9.4 L Hematocrit 27.5 L Mean Corpuscular Volume 91.7 Mean Corpuscular Hemoglobin 31.3 Mean Corpuscular Hemoglobin Concent 34.2 Red Cell Distribution Width 13.5 Platelet Count 181 Mean Platelet Volume 10.6 H Immature Granulocytes % 0.800 H Neutrophils % 61.9 Lymphocytes % 18.1 Monocytes % 9.5 Eosinophils % 9.3 H Basophils % 0.4 Nucleated Red Blood Cells % 0.0 Immature Granulocytes # 0.100 H Neutrophils # 7.4 Lymphocytes # 2.2 Monocytes # 1.1 H Eosinophils # 1.1 H Basophils # 0.1 Nucleated Red Blood Cells # 0.0 Sodium Level 144 Potassium Level 4.0 Chloride Level 109 Carbon Dioxide Level 30 Anion Gap 5 Blood Urea Nitrogen 21 H Creatinine 1.03 Est Glomerular Filtrat Rate mL/min > 60 Glucose Level 98 Calcium Level 7.9 L Phosphorus Level 3.5 Magnesium Level 2.1 Creatine Kinase 8805 #H Medications Current Medications Ondansetron HCl (Zofran Inj) 4 mg Q6H PRN IV NAUSEA AND/OR VOMITING; Start 06/25/18 at 14:00 Albuterol (Proventil 0.083% (Neb)) 2.5 mg Q2H RESP THERAPY PRN NEB SHORTNESS OF BREATH; Start 06/25/18 at 14:00 Acetaminophen (Tylenol Supp) 650 mg Q4H PRN DE PAIN LEVEL 1-3 OR FEVER Last administered on 06/26/18at 04:00; Admin Dose 650 MG; Start 06/25/18 at 14:00 Lorazepam (Ativan) 1 mg Q2H PRN IV ANXIETY Last administered on 06/29/18at 05:37; Admin Dose 1 MG; Start 06/25/18 at 14:00 Piperacillin Sod/ Tazobactam Sod 100 ml @ 200 mls/hr Q8 IVPB Last administered on 06/30/18at 05:53; Admin Dose 200 MLS/HR; Start 06/25/18 at 14:00 Fentanyl 100 ml @ 2.5 mls/hr TITRATE IV Last administered on 06/30/18at 08:18; Admin Dose 10 MLS/HR; Start 06/25/18 at 17:30 Midazolam HCl 50 ml @ 1 mls/hr TITRATE IV Last administered on 06/30/18at 04:34; Admin Dose 10 MLS/HR; Start 06/25/18 at 23:00 Levofloxacin/ Dextrose 50 ml @ 50 mls/hr Q24H IVPB Last administered on 06/30/18at 08:26; Admin Dose 50 MLS/HR; Start 06/26/18 at 09:00 Pantoprazole (Protonix Iv) 40 mg BID@06,18 IV Last administered on 06/30/18at 05:53; Admin Dose 40 MG; Start 06/26/18 at 18:00 Acetaminophen (Tylenol Liquid) 650 mg Q4H PRN GTB MILD PAIN(1-3)OR ELEVATED TEMP Last administered on 06/29/18at 01:42; Admin Dose 650 MG; Start 06/27/18 at 01:30 Propofol 100 ml @ 2.757 mls/ hr Q12H IV Last administered on 06/30/18at 03:46; Admin Dose 16.542 MLS/HR; Start 06/27/18 at 22:00 Sodium Chloride 1,000 ml @ 50 mls/hr Q20H IV Last administered on 06/30/18at 02:19; Admin Dose 100 MLS/HR; Start 06/28/18 at 09:00 IV Flush (NS 10 ml) 10 ml PRN PRN IV FLUSH LINE; Start 06/28/18 at 13:00 Heparin Sodium (Porcine) (Heparin (5000 Units/1ml)) 5,000 unit BID SC Last administered on 06/30/18at 08:26; Admin Dose 5,000 UNIT; Start 06/28/18 at 21:00 Vancomycin HCl (Vanco Iv Per Pharmacy) VANCOMYCIN PER PHARMACY PER PROTOCOL XX ; Start 06/28/18 at 15:00 Aspirin (Aspirin) 81 mg DAILY NGT Last administered on 06/30/18at 08:25; Admin Dose 81 MG; Start 06/28/18 at 16:30 Vancomycin HCl 1.25 gm/Sodium Chloride 250 ml @ 83.333 mls/ hr Q12H IVPB Last administered on 06/30/18at 05:07; Admin Dose 83.333 MLS/HR; Start 06/29/18 at 17:00 Assessment/Plan Additional Assessment/Plan Ventilator setting; AC of 18, tidal volume 500, PEEP of 8, 40% FiO2. Patient is currently on propofol at 30 mics per kilogram per minute, Versed 10 mg/h, fentanyl 100 mics per hour. Assessment and recommendations; 1. Patient admitted with respiratory failure due to severe bilateral pneumonia with interval improvement. 2. Shock liver with improvement. 3. Acute renal insufficiency due to rhabdomyolysis with improving renal function as well. 4. History of drug abuse. 5. Improving hypernatremia. 6. Mild anemia and thrombocytopenia. Withdrawal sedation as tolerated. Continue other supportive measures. Patient was given Lasix for generalized edema. Weaning from ventilator will depend upon adequate mental status recovery off sedation. 35 minutes of critical care time was spent evaluating the patient. DERREK ALBERT Jun 30, 2018 08:35
--- NOTE | 2018-06-30 10:05 | PN ---
Date/Time of Note Date/Time of Note DATE: 06/30/18 TIME: 09:59 Assessment/Plan VTE Prophylaxis Risk score (from Nsg)>0 risk: 6 SCD applied (from Nsg): Yes Pharmacological prophylaxis: heparin Lines/Catheters IV Catheter Type (from Nrsg): PICC Line Central line still needed: Yes Urinary Cath still in place: Yes Reason Cath still needed: other (indicate) Assessment/Plan Assessment/Plan subjective: Patient seen and examined. Remains Intubated and sedated for comfort, but no pressor support. fever improving Objective: GENERAL: Intubated and comfortably sedated HEENT: EDMOND, Intubated, Vent settings noted , high peep of 8 LUNGS: diffusely diminished and coarse BS HEART: S1, S2. No murmur, gallops or rubs. ABDOMEN: Soft, non distended, Normoactive bowel sounds. GENITOURINARY: Normal male external genitalia, Potter to bedside drainage with good UO EXTREMITIES: Trace edema developing in bilateral hands and feet bilaterally NEUROLOGIC: The patient is currently sedated, requiring bilateral restraints SKIN: Otherwise, unremarkable. assessment and plan: 37 yo M found unresponsive outside his home garage managed in ICU as follows: 1. Acute encephalopathy -toxic metabolic r/o HIE -multiple substances including cocaine / BZD / THC in urine drug screen -responded to narcan by EMS -Patient initially had complete RUE paresis, but this seems to have improved -patient likely has suffered neurologic insult, CT brain negative, needs MRI when more stable 2. Acute Resp failure: -s/p ET intubation and remains Vent dependent -still requiring high PEEP -Pulm following and managing 3. Renal failure: resolved -acute, ?ATN from drugs versus severe dehydration -nephro managing 4. Severe hypothermia: resolved -s/p warming measures 5. Metabolic acidosis: improved -2/2 renal failure and drugs, 6. Severe Rhabdomyolysis -Fluid management per nephrology -levels improving 7. Hyperkalemia: 2/2 renal failure -no EKG changes -repeat levels at this time, intervene with cocktail if indicated 8. Sepsis with roz Pneumonia and UTI, ?aspiration -likely sequelae of encephalopathy -Repeat blood cultures negative so far -Continue current abx, appreciate ID recs 9. Elevated troponins vs NSTEMI -resumed aspirin -echocardiogram showed LVEF 40% with global hypokinesis -will eventually need coronary evaluation once acute issues resolved 10. Multisubstance abuse -urine drug screen positive for cocaine / BZD / THC / Opiate -will need counselling if / when mentation improves 11. Enterococcus UTI -continue abx 12. Hypernatremia and hypophosphatemia: resolved - continue monitoring 13. S/p Epistaxis -aspirin resumed, continue to monitor -remains on PPI BID Prophylaxis: Pepcid / Heparin FEN: Tube feedings / 1/2 NS @50cc/hr Further evaluation and treatment will be based on clinical course CRITICAL CARE TIME: >35 mins of which more than half was spent at the bedside and during counselling Result Diagram: 06/30/18 0430 06/30/18 0430 Results 24hrs Laboratory Tests Test 06/30/18 04:30 White Blood Count 11.9 H Red Blood Count 3.00 L Hemoglobin 9.4 L Hematocrit 27.5 L Mean Corpuscular Volume 91.7 Mean Corpuscular Hemoglobin 31.3 Mean Corpuscular Hemoglobin Concent 34.2 Red Cell Distribution Width 13.5 Platelet Count 181 Mean Platelet Volume 10.6 H Immature Granulocytes % 0.800 H Neutrophils % 61.9 Lymphocytes % 18.1 Monocytes % 9.5 Eosinophils % 9.3 H Basophils % 0.4 Nucleated Red Blood Cells % 0.0 Immature Granulocytes # 0.100 H Neutrophils # 7.4 Lymphocytes # 2.2 Monocytes # 1.1 H Eosinophils # 1.1 H Basophils # 0.1 Nucleated Red Blood Cells # 0.0 Sodium Level 144 Potassium Level 4.0 Chloride Level 109 Carbon Dioxide Level 30 Anion Gap 5 Blood Urea Nitrogen 21 H Creatinine 1.03 Est Glomerular Filtrat Rate mL/min > 60 Glucose Level 98 Calcium Level 7.9 L Phosphorus Level 3.5 Magnesium Level 2.1 Creatine Kinase 8805 #H Exam/Review of Systems Vital Signs Vitals Vital Signs Date Temp Pulse Resp B/P (MAP) Pulse Ox O2 O2 Flow FiO2 Time Delivery Rate 06/30/18 50 08:00 06/30/18 89 08:00 06/30/18 21 102/62 98 Mechanical 06:00 (75) Ventilator 06/30/18 98.7 04:00 Intake and Output 06/29/18 06/29/18 06/30/18 1414:59 22:59 06:59 IntakeIntake Total 1486.46 ml 1693.200 ml 2533.252 ml OutputOutput Total 860 ml 940 ml 1130 ml BalanceBalance 626.46 ml 753.200 ml 1403.252 ml Medications Medications Current Medications Ondansetron HCl (Zofran Inj) 4 mg Q6H PRN IV NAUSEA AND/OR VOMITING; Start 06/25/18 at 14:00 Albuterol (Proventil 0.083% (Neb)) 2.5 mg Q2H RESP THERAPY PRN NEB SHORTNESS OF BREATH; Start 06/25/18 at 14:00 Acetaminophen (Tylenol Supp) 650 mg Q4H PRN IN PAIN LEVEL 1-3 OR FEVER Last administered on 06/26/18at 04:00; Admin Dose 650 MG; Start 06/25/18 at 14:00 Lorazepam (Ativan) 1 mg Q2H PRN IV ANXIETY Last administered on 06/29/18at 05:37; Admin Dose 1 MG; Start 06/25/18 at 14:00 Piperacillin Sod/ Tazobactam Sod 100 ml @ 200 mls/hr Q8 IVPB Last administered on 06/30/18 05:53; Admin Dose 200 MLS/HR; Start 06/25/18 at 14:00 Fentanyl 100 ml @ 2.5 mls/hr TITRATE IV Last administered on 06/30/18 08:18; Admin Dose 10 MLS/HR; Start 06/25/18 at 17:30 Midazolam HCl 50 ml @ 1 mls/hr TITRATE IV Last administered on 06/30/18at 04:34; Admin Dose 10 MLS/HR; Start 06/25/18 at 23:00 Levofloxacin/ Dextrose 50 ml @ 50 mls/hr Q24H IVPB Last administered on 06/30/18at 08:26; Admin Dose 50 MLS/HR; Start 06/26/18 at 09:00 Pantoprazole (Protonix Iv) 40 mg BID@06,18 IV Last administered on 06/30/18 05:53; Admin Dose 40 MG; Start 06/26/18 at 18:00 Acetaminophen (Tylenol Liquid) 650 mg Q4H PRN GTB MILD PAIN(1-3)OR ELEVATED TEMP Last administered on 06/29/18at 01:42; Admin Dose 650 MG; Start 06/27/18 at 01:30 Propofol 100 ml @ 2.757 mls/ hr Q12H IV Last administered on 06/30/18at 09:32; Admin Dose 16.542 MLS/HR; Start 06/27/18 at 22:00 Sodium Chloride 1,000 ml @ 50 mls/hr Q20H IV Last administered on 06/30/18at 02:19; Admin Dose 100 MLS/HR; Start 06/28/18 at 09:00 IV Flush (NS 10 ml) 10 ml PRN PRN IV FLUSH LINE; Start 06/28/18 at 13:00 Heparin Sodium (Porcine) (Heparin (5000 Units/1ml)) 5,000 unit BID SC Last administered on 06/30/18at 08:26; Admin Dose 5,000 UNIT; Start 06/28/18 at 21:00 Vancomycin HCl (Vanco Iv Per Pharmacy) VANCOMYCIN PER PHARMACY PER PROTOCOL XX ; Start 06/28/18 at 15:00 Aspirin (Aspirin) 81 mg DAILY NGT Last administered on 06/30/18at 08:25; Admin Dose 81 MG; Start 06/28/18 at 16:30 Vancomycin HCl 1.25 gm/Sodium Chloride 250 ml @ 83.333 mls/ hr Q12H IVPB Last administered on 06/30/18at 05:07; Admin Dose 83.333 MLS/HR; Start 06/29/18 at 17:00 JOSIAS HUANG Jun 30, 2018 10:05
--- NOTE | 2018-06-30 10:52 | PN ---
DATE: 06/30/2018 SUBJECTIVE: The patient is stable, but critically ill. The patient is on full ventilatory support. No other acute events noted. No hemoptysis, hematemesis, hematochezia. OBJECTIVE: VITAL SIGNS: Blood pressure is 102/62, respiration is 21, pulse 80, temperature 98.7. HEENT: Head is normocephalic. NECK: Supple. HEART: Regular rate. LUNGS: Show diminished breath sounds at the base. ABDOMEN: Soft, nontender to palpation. No rebound or guarding. EXTREMITIES: Negative for clubbing, cyanosis. Trace edema. DERMATOLOGIC: No rashes. MUSCULOSKELETAL: No joint effusions. NEUROLOGIC: No change in exam. MEDICATIONS: Reviewed. LABORATORY DATA: Sodium 144, potassium 4.0, chloride 109, BUN 21, creatinine 1.03. He has a CK leve l of 8000. White count 11.9, hemoglobin 9.4, platelet count is 181. IMAGING: The patient's chest x-ray was reviewed, shows bilateral airspace opacities, unchanged. ASSESSMENT AND PLAN: 1. Nonoliguric acute kidney injury with unknown baseline creatinine. Etiology is secondary to acute tubular necrosis due to treatment associated acute kidney injury from rhabdomyolysis, ischemic hypop erfusion and nephrotoxicity from polysubstance abuse. The patient is entering recovery phase of acut e tubular necrosis. Renal function has improved. We will continue current treatment plan, supportiv e care, renally dose all meds. Will deescalate IV fluids. 2. Rhabdomyolysis. The patient's CK levels have markedly improved. Will continue to deescalate IV fluids. Continue to monitor CK levels. 3. Mineral bone disorder. Monitor calcium and phosphorus levels. 4. Anemia. Monitor hemoglobin and hematocrit levels. 5. Ventilator-dependent respiratory failure. Vent settings and ABG was reviewed. Continue to monit or. 6. Sepsis secondary to bilateral pneumonia. Continue current treatment plan. 7. Acute encephalopathy. Etiology is multifactorial, polysubstance abuse. Continue to monitor. 8. Elevated troponin with demand ischemia. Continue to monitor. 9. Cardiomyopathy with ejection fraction 40%. The patient will require eventual cardiac catheteriza tion once clinically stable. 10. History of polysubstance abuse. Dictated By: UMAIR VALDEZ/MELODY Conf#: [id number] DID#: [id number] CC: JOSIAS HUANG MD;*[facility]*
--- NOTE | 2018-06-30 12:25 | CONS ---
Date/Time of Note Date/Time of Note DATE: 06/30/18 TIME: 12:24 Assessment/Plan Assessment/Plan Hospital Course No acute changes overnight patient remains intubated sedated he is in no distress. T-max yesterday 100.60 current 98.5 pulse 83 respirations 20 blood pressure 106/69 saturation 97% on 40 FiO2 and PEEP of 8 WBC 11.9 H&H 9.4 and 27.5 platelets 181 neutrophils 61.9 BUN 21 creatinine 1.03 Microbiology: Urine culture on admission grew enterococcus species, blood cultures had been negative sputum culture negative Indwelling: Endotracheal tube NG tube, Potter catheter right upper extremity PICC line 06/28/18 Antimicrobials: Vancomycin levofloxacin Zosyn Diagnostic: Chest x-ray revealed unchanged bilateral airspace opacities Physical examination: Well-developed obese middle-aged man who is intubated s edated in no distress. Head atraumatic normocephalic neck is supple chest rise symmetrical breath sounds diminished bases. Heart: S1-S2. Abdomen soft bowel sounds hypoactive. Extremities without cyanosis. Assessment: 1. Sepsis secondary to bilateral pneumonia, possibly aspiration 2. Respiratory failure 3. Enterococcal UTI 4. Acute kidney failure/rhabdomyolysis 5. Acute encephalopathy, status post drug overdose 6. Transaminitis, likely shock liver 7. Non-ST elevation PA 8. Polysubstance abuse Plan: Patient is hemodynamically stable, on appropriate antibiotics, kidney function improving, continue present care, follow recommendations of specialists, check HIV status, LFT in a.m. Result Diagram: 06/30/18 0430 06/30/18 0430 Results 24hrs Laboratory Tests Test 06/30/18 04:30 White Blood Count 11.9 H Red Blood Count 3.00 L Hemoglobin 9.4 L Hematocrit 27.5 L Mean Corpuscular Volume 91.7 Mean Corpuscular Hemoglobin 31.3 Mean Corpuscular Hemoglobin Concent 34.2 Red Cell Distribution Width 13.5 Platelet Count 181 Mean Platelet Volume 10.6 H Immature Granulocytes % 0.800 H Neutrophils % 61.9 Lymphocytes % 18.1 Monocytes % 9.5 Eosinophils % 9.3 H Basophils % 0.4 Nucleated Red Blood Cells % 0.0 Immature Granulocytes # 0.100 H Neutrophils # 7.4 Lymphocytes # 2.2 Monocytes # 1.1 H Eosinophils # 1.1 H Basophils # 0.1 Nucleated Red Blood Cells # 0.0 Sodium Level 144 Potassium Level 4.0 Chloride Level 109 Carbon Dioxide Level 30 Anion Gap 5 Blood Urea Nitrogen 21 H Creatinine 1.03 Est Glomerular Filtrat Rate mL/min > 60 Glucose Level 98 Calcium Level 7.9 L Phosphorus Level 3.5 Magnesium Level 2.1 Creatine Kinase 8805 #H Consultation Date/Type/Reason Admit Date/Time Jun 25, 2018 at 10:52 Initial Consult Date 06/26/18 Type of Consult id Exam/Review of Systems Vital Signs Vitals Vital Signs Date Temp Pulse Resp B/P (MAP) Pulse Ox O2 O2 Flow FiO2 Time Delivery Rate 06/30/18 83 20 97 40 11:10 06/30/18 106/69 Mechanical 10:00 (81) Ventilator 06/30/18 98.5 08:00 Intake and Output 06/29/18 06/29/18 06/30/18 1515:00 23:00 07:00 IntakeIntake Total 1335.28 ml 2135.600 ml 2179.794 ml OutputOutput Total 860 ml 960 ml 1000 ml BalanceBalance 475.28 ml 1175.600 ml 1179.794 ml Medications Medications Current Medications Ondansetron HCl (Zofran Inj) 4 mg Q6H PRN IV NAUSEA AND/OR VOMITING; Start 06/25/18 at 14:00 Albuterol (Proventil 0.083% (Neb)) 2.5 mg Q2H RESP THERAPY PRN NEB SHORTNESS OF BREATH; Start 06/25/18 at 14:00 Acetaminophen (Tylenol Supp) 650 mg Q4H PRN [place] PAIN LEVEL 1-3 OR FEVER Last administered on 06/26/18at 04:00; Admin Dose 650 MG; Start 06/25/18 at 14:00 Lorazepam (Ativan) 1 mg Q2H PRN IV ANXIETY Last administered on 06/29/18at 05:37; Admin Dose 1 MG; Start 06/25/18 at 14:00 Piperacillin Sod/ Tazobactam Sod 100 ml @ 200 mls/hr Q8 IVPB Last administered on 06/30/18at 05:53; Admin Dose 200 MLS/HR; Start 06/25/18 at 14:00 Fentanyl 100 ml @ 2.5 mls/hr TITRATE IV Last administered on 06/30/18at 08:18; Admin Dose 10 MLS/HR; Start 06/25/18 at 17:30 Midazolam HCl 50 ml @ 1 mls/hr TITRATE IV Last administered on 06/30/18at 11:01; Admin Dose 4 MLS/HR; Start 06/25/18 at 23:00 Levofloxacin/ Dextrose 50 ml @ 50 mls/hr Q24H IVPB Last administered on 06/30/18at 08:26; Admin Dose 50 MLS/HR; Start 06/26/18 at 09:00 Pantoprazole (Protonix Iv) 40 mg BID@06,18 IV Last administered on 06/30/18at 05:53; Admin Dose 40 MG; Start 06/26/18 at 18:00 Acetaminophen (Tylenol Liquid) 650 mg Q4H PRN GTB MILD PAIN(1-3)OR ELEVATED TEMP Last administered on 06/29/18at 01:42; Admin Dose 650 MG; Start 06/27/18 at 01:30 Propofol 100 ml @ 2.757 mls/ hr Q12H IV Last administered on 06/30/18at 09:32; Admin Dose 16.542 MLS/HR; Start 06/27/18 at 22:00 Sodium Chloride 1,000 ml @ 50 mls/hr Q20H IV Last administered on 06/30/18at 02:19; Admin Dose 100 MLS/HR; Start 06/28/18 at 09:00 IV Flush (NS 10 ml) 10 ml PRN PRN IV FLUSH LINE; Start 06/28/18 at 13:00 Heparin Sodium (Porcine) (Heparin (5000 Units/1ml)) 5,000 unit BID SC Last administered on 06/30/18at 08:26; Admin Dose 5,000 UNIT; Start 06/28/18 at 21:00 Vancomycin HCl (Vanco Iv Per Pharmacy) VANCOMYCIN PER PHARMACY PER PROTOCOL XX ; Start 06/28/18 at 15:00 Aspirin (Aspirin) 81 mg DAILY NGT Last administered on 06/30/18at 08:25; Admin Dose 81 MG; Start 06/28/18 at 16:30 Vancomycin HCl 1.25 gm/Sodium Chloride 250 ml @ 83.333 mls/ hr Q12H IVPB Last administered on 06/30/18at 05:07; Admin Dose 83.333 MLS/HR; Start 06/29/18 at 17:00 NISHA NASSAR NP Jun 30, 2018 12:25
--- NOTE | 2018-06-30 14:16 | CONS ---
Assessment/Plan Assessment/Plan Hospital Course A: 37 M c/ reported Hx of recreational drug abuse...who presents for evaluation of ams, after being found unconscious in his garage by his . Clinically consistent w/ an acute toxic encephalopathy.. Superimposed stroke is not yet excluded.. Seizure is unlikely.. Head CT is unrevealing. P: Wean chemical sedation as soon as medically able MRI brain for further characterization when able Medical management and supportive care per primary Will follow clinically Result Diagram: 06/30/18 0430 06/30/18 0430 Results 24hrs Laboratory Tests Test 06/30/18 04:30 White Blood Count 11.9 H Red Blood Count 3.00 L Hemoglobin 9.4 L Hematocrit 27.5 L Mean Corpuscular Volume 91.7 Mean Corpuscular Hemoglobin 31.3 Mean Corpuscular Hemoglobin Concent 34.2 Red Cell Distribution Width 13.5 Platelet Count 181 Mean Platelet Volume 10.6 H Immature Granulocytes % 0.800 H Neutrophils % 61.9 Lymphocytes % 18.1 Monocytes % 9.5 Eosinophils % 9.3 H Basophils % 0.4 Nucleated Red Blood Cells % 0.0 Immature Granulocytes # 0.100 H Neutrophils # 7.4 Lymphocytes # 2.2 Monocytes # 1.1 H Eosinophils # 1.1 H Basophils # 0.1 Nucleated Red Blood Cells # 0.0 Sodium Level 144 Potassium Level 4.0 Chloride Level 109 Carbon Dioxide Level 30 Anion Gap 5 Blood Urea Nitrogen 21 H Creatinine 1.03 Est Glomerular Filtrat Rate mL/min > 60 Glucose Level 98 Calcium Level 7.9 L Phosphorus Level 3.5 Magnesium Level 2.1 Creatine Kinase 8805 #H HIV (1&2) Antibody NEGATIVE Consultation Date/Type/Reason Admit Date/Time Jun 25, 2018 at 10:52 Type of Consult Neurology Reason for Consultation ams Date/Time of Note DATE: 06/30/18 TIME: 14:16 24 HR Interval Summary Free Text/Dictation Continues critical care. On propofol/fentanyl/versed, though versed was reportedly titrated down. No acute events or complaints reported. Subjective hx not possible: pt non-verbal, pt critical status Exam Vital Signs Vitals Vital Signs Date Temp Pulse Resp B/P (MAP) Pulse Ox O2 O2 Flow FiO2 Time Delivery Rate 06/30/18 87 12:00 06/30/18 20 97 40 11:10 06/30/18 106/69 Mechanical 10:00 (81) Ventilator 06/30/18 98.5 08:00 Intake and Output 06/29/18 06/29/18 06/30/18 1515:00 23:00 07:00 IntakeIntake Total 1335.28 ml 2135.600 ml 2179.794 ml OutputOutput Total 860 ml 960 ml 1000 ml BalanceBalance 475.28 ml 1175.600 ml 1179.794 ml Exam PE: Gen Appearance: No Apparent Distress HEENT: Intubated Cardiovascular: Regular rate Abdomen: Soft Extremities: Dry NE: The patient was obtunded and nonverbal. Cranial nerve examination was limited by mental status. Pupils were equal and reactive to light. There was no afferent pupillary defect. Funduscopic exa mination was limited. Face was grossly symmetric, w/ present corneal and cough reflexes. Tone was normal. Muscle bulk was normal. I did not see fasciculations. The patient withdrew to noxious stimulation x 4. Coordination and gait testing was limited by mental status. Arm and leg reflexes were within normal limits and symmetric. Milian's sign was absent. Plantar responses were flexor. KM CH NP Jun 30, 2018 14:16 EUGENIA VILLEGAS Jul 01, 2018 05:52
--- NOTE | 2018-06-30 14:51 | NUR ---
1415 Pt. agitated, not following commands, kicking legs out of bed. RR increased to 40, SPO2 dropped to 94%. Pt. suctioned, attempted to reorient and calm patient without success. Sedation uptitrated at 1430 due to agitation, will continue to titrate as tolerated.
--- NOTE | 2018-06-30 17:09 | CONS ---
Date/Time of Note Date/Time of Note DATE: 06/30/18 TIME: 17:08 Assessment/Plan Assessment/Plan Hospital Course Assessment: Mildly elevated troponin - likely type 2 NSTEMI versus rhabdomyolysis Cardiomyopathy, LVEF 40% - ischemic vs drug use Polysubstance abuse - urine toxicology positive for opiates, benzodiazepines, cocaine, cannabinoids Acute metabolic encephalopathy Acute hypoxic respiratory failure - intubated and on mechanical ventilation Aspiration and probable pneumonia Acute kidney injury Recommendations: -echocardiogram showed LVEF 40% with global hypokinesis -will eventually need coronary evaluation once acute issues resolved Result Diagram: 06/30/18 0430 06/30/18 0430 Results 24hrs Laboratory Tests Test 06/30/18 04:30 White Blood Count 11.9 H Red Blood Count 3.00 L Hemoglobin 9.4 L Hematocrit 27.5 L Mean Corpuscular Volume 91.7 Mean Corpuscular Hemoglobin 31.3 Mean Corpuscular Hemoglobin Concent 34.2 Red Cell Distribution Width 13.5 Platelet Count 181 Mean Platelet Volume 10.6 H Immature Granulocytes % 0.800 H Neutrophils % 61.9 Lymphocytes % 18.1 Monocytes % 9.5 Eosinophils % 9.3 H Basophils % 0.4 Nucleated Red Blood Cells % 0.0 Immature Granulocytes # 0.100 H Neutrophils # 7.4 Lymphocytes # 2.2 Monocytes # 1.1 H Eosinophils # 1.1 H Basophils # 0.1 Nucleated Red Blood Cells # 0.0 Sodium Level 144 Potassium Level 4.0 Chloride Level 109 Carbon Dioxide Level 30 Anion Gap 5 Blood Urea Nitrogen 21 H Creatinine 1.03 Est Glomerular Filtrat Rate mL/min > 60 Glucose Level 98 Calcium Level 7.9 L Phosphorus Level 3.5 Magnesium Level 2.1 Creatine Kinase 8805 #H HIV (1&2) Antibody NEGATIVE Consultation Date/Type/Reason Admit Date/Time Jun 25, 2018 at 10:52 Initial Consult Date 06/26/18 Type of Consult Cardiology 24 HR Interval Summary Free Text/Dictation Remains intubated and sedated. Detailed Summary Additional Comments Unable to obtain review of systems, patient is intubated. Exam/Review of Systems Vital Signs Vitals Vital Signs Date Temp Pulse Resp B/P (MAP) Pulse Ox O2 O2 Flow FiO2 Time Delivery Rate 06/30/18 99.1 74 20 100/58 96 Mechanical 16:00 (72) Ventilator 06/30/18 40 15:10 Intake and Output 06/29/18 06/29/18 06/30/18 1515:00 23:00 07:00 IntakeIntake Total 1335.28 ml 2135.600 ml 2179.794 ml OutputOutput Total 860 ml 960 ml 1000 ml BalanceBalance 475.28 ml 1175.600 ml 1179.794 ml Exam Constitutional: No alert, No oriented Psych: confusion; No nl mood/affect Head: normocephalic, atraumatic Eyes: nl conjunctiva, nl lids ENMT: nl external ears & nose, nl nasal mucosa & septum Neck: supple, non-tender Respiratory: crackles/rales, diminished breath sounds Cardiovascular: regular rate and rhythm Gastrointestinal: soft, non-tender Musculoskeletal: nl extremities to inspection Extremities: No cyanosis, No clubbing, No edema Neurological: No nl mental status, No nl speech Medications Medications Current Medications Ondansetron HCl (Zofran Inj) 4 mg Q6H PRN IV NAUSEA AND/OR VOMITING; Start 06/25/18 at 14:00 Albuterol (Proventil 0.083% (Neb)) 2.5 mg Q2H RESP THERAPY PRN NEB SHORTNESS OF BREATH; Start 06/25/18 at 14:00 Acetaminophen (Tylenol Supp) 650 mg Q4H PRN [place] PAIN LEVEL 1-3 OR FEVER Last administered on 06/26/18at 04:00; Admin Dose 650 MG; Start 06/25/18 at 14:00 Lorazepam (Ativan) 1 mg Q2H PRN IV ANXIETY Last administered on 06/29/18at 05:37; Admin Dose 1 MG; Start 06/25/18 at 14:00 Piperacillin Sod/ Tazobactam Sod 100 ml @ 200 mls/hr Q8 IVPB Last administered on 06/30/18at 13:40; Admin Dose 200 MLS/HR; Start 06/25/18 at 14:00 Fentanyl 100 ml @ 2.5 mls/hr TITRATE IV Last administered on 06/30/18at 08:18; Admin Dose 10 MLS/HR; Start 06/25/18 at 17:30 Midazolam HCl 50 ml @ 1 mls/hr TITRATE IV Last administered on 06/30/18at 11:01; Admin Dose 4 MLS/HR; Start 06/25/18 at 23:00 Levofloxacin/ Dextrose 50 ml @ 50 mls/hr Q24H IVPB Last administered on 06/30/18 08:26; Admin Dose 50 MLS/HR; Start 06/26/18 at 09:00 Pantoprazole (Protonix Iv) 40 mg BID@06,18 IV Last administered on 06/30/18 17:03; Admin Dose 40 MG; Start 06/26/18 at 18:00 Acetaminophen (Tylenol Liquid) 650 mg Q4H PRN GTB MILD PAIN(1-3)OR ELEVATED TEMP Last administered on 06/29/18 01:42; Admin Dose 650 MG; Start 06/27/18 at 01:30 Propofol 100 ml @ 2.757 mls/ hr Q12H IV Last administered on 06/30/18 15:47; Admin Dose 16.542 MLS/HR; Start 06/27/18 at 22:00 Sodium Chloride 1,000 ml @ 50 mls/hr Q20H IV Last administered on 06/30/18at 13:41; Admin Dose 50 MLS/HR; Start 06/28/18 at 09:00 IV Flush (NS 10 ml) 10 ml PRN PRN IV FLUSH LINE; Start 06/28/18 at 13:00 Heparin Sodium (Porcine) (Heparin (5000 Units/1ml)) 5,000 unit BID SC Last administered on 06/30/18 08:26; Admin Dose 5,000 UNIT; Start 06/28/18 at 21:00 Vancomycin HCl (Vanco Iv Per Pharmacy) VANCOMYCIN PER PHARMACY PER PROTOCOL XX ; Start 06/28/18 at 15:00 Aspirin (Aspirin) 81 mg DAILY NGT Last administered on 06/30/18 08:25; Admin Dose 81 MG; Start 06/28/18 at 16:30 Vancomycin HCl 1.25 gm/Sodium Chloride 250 ml @ 83.333 mls/ hr Q12H IVPB Last administered on 06/30/18 16:49; Admin Dose 83.333 MLS/HR; Start 06/29/18 at 17:00 Miscellaneous Information (*Rx Drug Level Order Reminder*) VANCO TROUGH @ 0,400 ONCE ONCE XX ; Start 07/01/18 at 04:00; Stop 07/01/18 at 04:01 IRVIN COLLAZO MD Jun 30, 2018 17:09
[2018-07-01] VITALS (46 sets, daily range): BP systolic 76–127; BP diastolic 28–77; PULSE 69–93; RESP 15–30
[2018-07-01] MEDS: SOD CHLORIDE 0.45% 1,000 ML IV SCH (01:41)
[2018-07-01] MEDS: PROPOFOL 100 ML IV SCH ×5 (01:41→20:11)
[2018-07-01] MEDS: FENTAnyl (DRIP) 1000 mcg/100mL 100 ML IV SCH ×2 (04:44→15:21)
[2018-07-01] MEDS: PANTOPRAZOLE 40 MG INJ IV SCH ×2 (05:34→18:17)
[2018-07-01] MEDS: PIPER-TAZO 3.375 GM IV (PMX) 100 ML IVPB SCH ×3 (05:34→22:29)
[2018-07-01] MEDS: MIDAZOLAM (DRIP) 50 mg/50 mL 50 ML IV SCH ×3 (05:49→21:13)
[2018-07-01] MEDS: VANCOMYCIN 1.5 GM in SOD CHLORIDE 0.9% 250 ML IVPB SCH ×2 (06:37→18:16)
--- NOTE | 2018-07-01 07:55 | NUR ---
EOSS Pt remains intubated/sedated. Pt continues to become agitated when sedation lowered or paused, will attempt to move arms and will kick legs up. Pt HR and BP remained WNL, SpO2 remained >92% with FiO2 decreased to 30%. Pt continued to have moderate amount of secretions. Potter remains patent. Pt had 1 BM during shift, tolerating tube feeds. pt turned q2h. Bedside report given to dayshift RN.
--- NOTE | 2018-07-01 08:33 | NUR ---
VANCOMYCIN PER PHARMACY NOTE VANCO TR = 9.2 VANCOMYCIN DOSE HAS BEEN INCREASED TO VANCO 1.5 GRAM IV Q12 HOURS FOR NOW. WILL CHECK TR PRIOR TO 4TH DOSE. PHARMACY WILL FOLLOW. THANK YOU.
--- NOTE | 2018-07-01 08:41 | CONS ---
Date/Time of Note Date/Time of Note DATE: 07/01/18 TIME: 08:37 Consult Date/Type/Reason Admit Date/Time Jun 25, 2018 at 10:52 Initial Consult Date 06/26/18 Type of Consult Pulmonary Subjective Patient's condition remains critical. Patient however has remained hemody namically stable. Patient cannot tolerate any weaning from sedation because of ensuing severe agitation. General exam; young male, orally intubated, sedated, currently in no distress. Objective Vital Signs Date Temp Pulse Resp B/P (MAP) Pulse Ox O2 O2 Flow FiO2 Time Delivery Rate 07/01/18 88 23 103/59 97 Mechanical 07:00 (74) Ventilator 07/01/18 35 05:04 07/01/18 99.8 04:00 Intake and Output 06/30/18 06/30/18 07/01/18 1515:00 23:00 07:00 IntakeIntake Total 1724.586 ml 1994.336 ml 1509.093 ml OutputOutput Total 2200 ml 1410 ml 1160 ml BalanceBalance -475.414 ml 584.336 ml 349.093 ml Exam H EENT exam; supple neck, no JVD. No lymphadenopathy. Midline trachea. No thyromegaly. Orally intubated. Patient has fair dentition. No neck masses. Pupils are midsize and reactive to light. OG tube in place. Chest exam; clear to auscultation. S1-S2 audible, no murmurs. Regular rhythm. Abdomen exam; soft, no organomegaly. Bowel sounds audible. Extremity exam; trace peripheral edema or clubbing. Pulses 2+. GEAR SETTER exam; patient is sedated. Vent Setting Ventilator Support Mode: AC, VC plus Fraction of Inspired Oxygen pe: 35 Positive End Expiratory Pressu: 8.0 Results/Medications Result Diagram: 07/01/18 0425 07/01/18 0425 Results 24 hrs Laboratory Tests Test 07/01/18 04:25 White Blood Count 11.8 H Red Blood Count 3.06 L Hemoglobin 9.5 L Hematocrit 27.9 L Mean Corpuscular Volume 91.2 Mean Corpuscular Hemoglobin 31.0 Mean Corpuscular Hemoglobin Concent 34.1 Red Cell Distribution Width 13.2 Platelet Count 229 # Mean Platelet Volume 10.4 Immature Granulocytes % 2.100 H Neutrophils % 64.1 Lymphocytes % 17.5 Monocytes % 7.9 Eosinophils % 7.9 H Basophils % 0.5 Nucleated Red Blood Cells % 0.0 Immature Granulocytes # 0.250 H Neutrophils # 7.6 H Lymphocytes # 2.1 Monocytes # 0.9 Eosinophils # 0.9 H Basophils # 0.1 Nucleated Red Blood Cells # 0.0 Sodium Level 142 Potassium Level 3.7 Chloride Level 108 Carbon Dioxide Level 31 Anion Gap 3 L Blood Urea Nitrogen 20 Creatinine 1.04 Est Glomerular Filtrat Rate mL/min > 60 Glucose Level 128 Calcium Level 8.0 L Magnesium Level 1.7 Total Bilirubin 0.2 Direct Bilirubin 0.00 Indirect Bilirubin 0.2 Aspartate Amino Transf (AST/SGOT) 188 H Alanine Aminotransferase (ALT/SGPT) 182 H Alkaline Phosphatase 110 Creatine Kinase 4527 #H Total Protein 5.3 L Albumin 2.7 L Vancomycin Level Trough 9.2 L Medications Current Medications Ondansetron HCl (Zofran Inj) 4 mg Q6H PRN IV NAUSEA AND/OR VOMITING; Start 06/25/18 at 14:00 Albuterol (Proventil 0.083% (Neb)) 2.5 mg Q2H RESP THERAPY PRN NEB SHORTNESS OF BREATH; Start 06/25/18 at 14:00 Acetaminophen (Tylenol Supp) 650 mg Q4H PRN [place] PAIN LEVEL 1-3 OR FEVER Last administered on 06/26/18at 04:00; Admin Dose 650 MG; Start 06/25/18 at 14:00 Lorazepam (Ativan) 1 mg Q2H PRN IV ANXIETY Last administered on 06/29/18at 05:37; Admin Dose 1 MG; Start 06/25/18 at 14:00 Piperacillin Sod/ Tazobactam Sod 100 ml @ 200 mls/hr Q8 IVPB Last administered on 07/01/18at 05:34; Admin Dose 200 MLS/HR; Start 06/25/18 at 14:00 Fentanyl 100 ml @ 2.5 mls/hr TITRATE IV Last administered on 07/01/18at 04:44; Admin Dose 10 MLS/HR; Start 06/25/18 at 17:30 Midazolam HCl 50 ml @ 1 mls/hr TITRATE IV Last administered on 07/01/18at 05:49; Admin Dose 7 MLS/HR; Start 06/25/18 at 23:00 Levofloxacin/ Dextrose 50 ml @ 50 mls/hr Q24H IVPB Last administered on 06/30/18at 08:26; Admin Dose 50 MLS/HR; Start 06/26/18 at 09:00 Pantoprazole (Protonix Iv) 40 mg BID@06,18 IV Last administered on 07/01/18at 05:34; Admin Dose 40 MG; Start 06/26/18 at 18:00 Acetaminophen (Tylenol Liquid) 650 mg Q4H PRN GTB MILD PAIN(1-3)OR ELEVATED TEMP Last administered on 06/29/18at 01:42; Admin Dose 650 MG; Start 06/27/18 at 01:30 Propofol 100 ml @ 2.757 mls/ hr Q12H IV Last administered on 07/01/18at 07:13; Admin Dose 27.57 MLS/HR; Start 06/27/18 at 22:00 IV Flush (NS 10 ml) 10 ml PRN PRN IV FLUSH LINE; Start 06/28/18 at 13:00 Heparin Sodium (Porcine) (Heparin (5000 Units/1ml)) 5,000 unit BID SC Last administered on 06/30/18at 21:17; Admin Dose 5,000 UNIT; Start 06/28/18 at 21:00 Vancomycin HCl (Vanco Iv Per Pharmacy) VANCOMYCIN PER PHARMACY PER PROTOCOL XX ; Start 06/28/18 at 15:00 Aspirin (Aspirin) 81 mg DAILY NGT Last administered on 06/30/18at 08:25; Admin Dose 81 MG; Start 06/28/18 at 16:30 Vancomycin HCl 1.5 gm/Sodium Chloride 250 ml @ 83.333 mls/ hr Q12H IVPB Last administered on 07/01/18at 06:37; Admin Dose 83.333 MLS/HR; Start 07/01/18 at 06:00 Miscellaneous Information (*Rx Drug Level Order Reminder*) VANCO TR AT 1,700 ONCE ONCE XX ; Start 07/02/18 at 17:00; Stop 07/02/18 at 17:01 Assessment/Plan Additional Assessment/Plan Ventilator setting; AC of 18, tidal volume 500, PEEP of 8, 30% FiO2. Chest x-ray from today showing significant improvement in bilateral pneumonia. Patient is currently on Versed 9 mg/h, fentanyl 100 mics per hour, propofol 50 mics per kilogram per minute. Assessment and recommendations; 1. Patient admitted with respiratory failure due to drug overdose with severe bilateral pneumonia possibly aspiration with significant improvement in chest x- ray as well as gas exchange. 2. Acute renal failure with normalization of renal function. 3. Shock liver with improvement as well. 4. Rhabdomyolysis with interval improvement. 5. Inability to handle sedation dosing decreased due to severe agitation indicative of ongoing underlying drug withdrawal. 6. Improving thrombocytopenia. 7. History of drug abuse. Continue current supportive care. Decrease PEEP to 5. Obtain follow-up chest x-ray 24 hours. Sedation vacation as tolerated. 35 minutes of critical care time was spent evaluating the patient. DERREK ALBERT Jul 01, 2018 08:41
[2018-07-01] MEDS: ASPIRIN 81 MG TAB NGT SCH (08:56)
[2018-07-01] MEDS: LEVOFLOXACIN 250MG/D5W (PMX) 50 ML IVPB SCH (08:57)
[2018-07-01] MEDS: HEPARIN 5,000 UNIT/1 ML VIAL SC SCH ×2 (08:58→21:18)
--- NOTE | 2018-07-01 09:06 | PN ---
DATE: 07/01/2018 SUBJECTIVE: The patient is critically ill, but stable. The patient is on full ventilatory support. The patient's urinary output has been excellent, responded well to diuretics. No other events noted . OBJECTIVE: VITAL SIGNS: Blood pressure is 103/59, respiration 23, pulse 88, temperature 98.6. HEENT: Head is normocephalic. NECK: Supple. HEART: Regular rate. LUNGS: Show diminished breath sounds at the base. ABDOMEN: Soft, nontender to palpation without rebound or guarding. EXTREMITIES: Negative for clubbing, cyanosis. Positive edema. DERMATOLOGIC: No rashes. MUSCULOSKELETAL: No joint effusion. NEUROLOGIC: No change in exam. MEDICATIONS: The patient's medications have been reviewed. LABORATORY DATA: Shows white count 11.8, hemoglobin 9.5, platelet count 229. Sodium 142, potassium 3.7, chloride 108, BUN 20, creatinine 1.04. The patient's CK levels 4000. ASSESSMENT AND PLAN: 1. Nonoliguric acute kidney injury with unknown baseline creatinine. Etiology secondary to acute tu bular necrosis due to pigment-associated acute kidney injury from rhabdomyolysis, shock, nephrotoxici ty. The patient is entering recovery phase of acute tubular necrosis. Renal function is improved. Continue current treatment plans, supportive care, renally dose all meds. Will discontinue IV fluids . 2. Rhabdomyolysis. The patient's CK levels are markedly improved. Continue to monitor. Discontinu e IV fluids. 3. Mineral bone disorder, monitor calcium and phosphatase levels. 4. Anemia. Continue to monitor hemoglobin and hematocrit levels. 5. Volume overload. Continue low-dose diuretic therapy and monitor I's and O's closely. 6. Ventilatory-dependent respiratory failure. Vent settings and arterial blood gas was reviewed. C ontinue to monitor. 7. Sepsis secondary to bilateral pneumonia. Continue current treatment plan. 8. Acute encephalopathy, etiology multifactorial. Continue to monitor. 9. Cardiomyopathy with ejection fraction 40%. Continue medical management. Follow up with cardiolo gy. 10. Polysubstance abuse. Continue to monitor. Dictated By: UMAIR LOBO DO NR/NTS Conf#: [id number] DID#: [id number] CC: JOSIAS HUANG MD;*EndCC*
--- NOTE | 2018-07-01 14:14 | CONS ---
Date/Time of Note Date/Time of Note DATE: 07/01/18 TIME: 14:12 Assessment/Plan Assessment/Plan Hospital Course No acute events overnight patient remains intubated sedated in no distress. He is spiking low-grade fevers with a T-max of 100.1 WBC today 11.8 H&H 9.5 and 27.9 platelets 229 neutrophils 64.1 BUN 20 creatinine 1.04 Chest x-ray this morning revealed stable patchy infiltrates throughout both lungs Microbiology: Urine culture on admission grew enterococcus species, blood cultures had been negative sputum culture negative Indwelling: Endotracheal tube NG tube, Potter catheter right upper extremity PICC line 06/28/18 Antimicrobials: Vancomycin levofloxacin Zosyn Diagnostic: Chest x-ray revealed unchanged bilateral airspace opacities Physical examination: Well-developed obese middle-aged man who is intubated sedated in no distress. Head atraumatic normocephalic neck is supple chest rise symmetrical breath sounds diminished bases. Heart: S1-S2. Abdomen soft bowel sounds hypoactive. Extremities without cyanosis. Assessment: 1. Sepsis secondary to bilateral pneumonia, possibly aspiration 2. Respiratory failure 3. Enterococcal UTI 4. Acute kidney failure/rhabdomyolysis 5. Acute encephalopathy, status post drug overdose 6. Transaminitis, likely shock liver 7. Non-ST elevation AR 8. Polysubstance abuse Plan: Patient is hemodynamically stable, still with low-grade fevers, sputum c ulture pending, continue current antibiotics, vent management per pulmonary Result Diagram: 07/01/18 0425 07/01/18 0425 Results 24hrs Laboratory Tests Test 07/01/18 04:25 White Blood Count 11.8 H Red Blood Count 3.06 L Hemoglobin 9.5 L Hematocrit 27.9 L Mean Corpuscular Volume 91.2 Mean Corpuscular Hemoglobin 31.0 Mean Corpuscular Hemoglobin Concent 34.1 Red Cell Distribution Width 13.2 Platelet Count 229 # Mean Platelet Volume 10.4 Immature Granulocytes % 2.100 H Neutrophils % 64.1 Lymphocytes % 17.5 Monocytes % 7.9 Eosinophils % 7.9 H Basophils % 0.5 Nucleated Red Blood Cells % 0.0 Immature Granulocytes # 0.250 H Neutrophils # 7.6 H Lymphocytes # 2.1 Monocytes # 0.9 Eosinophils # 0.9 H Basophils # 0.1 Nucleated Red Blood Cells # 0.0 Sodium Level 142 Potassium Level 3.7 Chloride Level 108 Carbon Dioxide Level 31 Anion Gap 3 L Blood Urea Nitrogen 20 Creatinine 1.04 Est Glomerular Filtrat Rate mL/min > 60 Glucose Level 128 Calcium Level 8.0 L Magnesium Level 1.7 Total Bilirubin 0.2 Direct Bilirubin 0.00 Indirect Bilirubin 0.2 Aspartate Amino Transf (AST/SGOT) 188 H Alanine Aminotransferase (ALT/SGPT) 182 H Alkaline Phosphatase 110 Creatine Kinase 4527 #H Total Protein 5.3 L Albumin 2.7 L Vancomycin Level Trough 9.2 L Consultation Date/Type/Reason Admit Date/Time Jun 25, 2018 at 10:52 Initial Consult Date 06/26/18 Type of Consult id Exam/Review of Systems Vital Signs Vitals Vital Signs Date Temp Pulse Resp B/P (MAP) Pulse Ox O2 O2 Flow FiO2 Time Delivery Rate 07/01/18 78 12:00 07/01/18 18 91/52 (65) 99 11:00 07/01/18 30 09:13 07/01/18 100.1 08:00 07/01/18 Mechanica 07:00 l Ventilato r Intake and Output 06/30/18 06/30/18 07/01/18 1515:00 23:00 07:00 IntakeIntake Total 1724.586 ml 1994.336 ml 1519.093 ml OutputOutput Total 2200 ml 1410 ml 1160 ml BalanceBalance -475.414 ml 584.336 ml 359.093 ml Medications Medications Current Medications Ondansetron HCl (Zofran Inj) 4 mg Q6H PRN IV NAUSEA AND/OR VOMITING; Start 06/25/18 at 14:00 Albuterol (Proventil 0.083% (Neb)) 2.5 mg Q2H RESP THERAPY PRN NEB SHORTNESS OF BREATH; Start 06/25/18 at 14:00 Acetaminophen (Tylenol Supp) 650 mg Q4H PRN [place] PAIN LEVEL 1-3 OR FEVER Last administered on 06/26/18at 04:00; Admin Dose 650 MG; Start 06/25/18 at 14:00 Piperacillin Sod/ Tazobactam Sod 100 ml @ 200 mls/hr Q8 IVPB Last administered on 07/01/18at 05:34; Admin Dose 200 MLS/HR; Start 06/25/18 at 14:00 Fentanyl 100 ml @ 2.5 mls/hr TITRATE IV Last administered on 07/01/18at 04:44; Admin Dose 10 MLS/HR; Start 06/25/18 at 17:30 Midazolam HCl 50 ml @ 1 mls/hr TITRATE IV Last administered on 07/01/18at 12:02; Admin Dose 9 MLS/HR; Start 06/25/18 at 23:00 Levofloxacin/ Dextrose 50 ml @ 50 mls/hr Q24H IVPB Last administered on at 08:57; Admin Dose 50 MLS/HR; Start 06/26/18 at 09:00 Pantoprazole (Protonix Iv) 40 mg BID@06,18 IV Last administered on 07/01/18at 05:34; Admin Dose 40 MG; Start 06/26/18 at 18:00 Acetaminophen (Tylenol Liquid) 650 mg Q4H PRN GTB MILD PAIN(1-3)OR ELEVATED TEMP Last administered on 06/29/18at 01:42; Admin Dose 650 MG; Start 06/27/18 at 01:30 Propofol 100 ml @ 2.757 mls/ hr Q12H IV Last administered on 07/01/18at 12:02; Admin Dose 22.056 MLS/HR; Start 06/27/18 at 22:00 IV Flush (NS 10 ml) 10 ml PRN PRN IV FLUSH LINE; Start 06/28/18 at 13:00 Heparin Sodium (Porcine) (Heparin (5000 Units/1ml)) 5,000 unit BID SC Last administered on 07/01/18at 08:58; Admin Dose 5,000 UNIT; Start 06/28/18 at 21:00 Vancomycin HCl (Vanco Iv Per Pharmacy) VANCOMYCIN PER PHARMACY PER PROTOCOL XX ; Start 06/28/18 at 15:00 Aspirin (Aspirin) 81 mg DAILY NGT Last administered on 07/01/18at 08:56; Admin Dose 81 MG; Start 06/28/18 at 16:30 Vancomycin HCl 1.5 gm/Sodium Chloride 250 ml @ 83.333 mls/ hr Q12H IVPB Last administered on 07/01/18at 06:37; Admin Dose 83.333 MLS/HR; Start 07/01/18 at 06:00 Miscellaneous Information (*Rx Drug Level Order Reminder*) VANCO TR AT 1,700 ONCE ONCE XX ; Start 07/02/18 at 17:00; Stop 07/02/18 at 17:01 Lorazepam (Ativan) 1 mg Q2H PRN GTB ANXIETY; Start 07/01/18 at 10:30 NISHA NASSAR NP Jul 01, 2018 14:14
--- NOTE | 2018-07-01 14:42 | CONS ---
Assessment/Plan Assessment/Plan Assessment/Plan A: 37 M c/ reported Hx of recreational drug abuse...who presents for evaluation of ams, after being found unconscious in his garage by his . Clinically consistent w/ an acute toxic encephalopathy.. Superimposed stroke is not yet excluded.. Seizure is unlikely.. Head CT is unrevealing. P: Wean chemical sedation as soon as medically able MRI brain for further characterization when able Medical management and supportive care per primary Will follow clinically Result Diagram: 07/01/18 0425 07/01/185 Results 24hrs Laboratory Tests Test 07/01/18 04:25 White Blood Count 11.8 H Red Blood Count 3.06 L Hemoglobin 9.5 L Hematocrit 27.9 L Mean Corpuscular Volume 91.2 Mean Corpuscular Hemoglobin 31.0 Mean Corpuscular Hemoglobin Concent 34.1 Red Cell Distribution Width 13.2 Platelet Count 229 # Mean Platelet Volume 10.4 Immature Granulocytes % 2.100 H Neutrophils % 64.1 Lymphocytes % 17.5 Monocytes % 7.9 Eosinophils % 7.9 H Basophils % 0.5 Nucleated Red Blood Cells % 0.0 Immature Granulocytes # 0.250 H Neutrophils # 7.6 H Lymphocytes # 2.1 Monocytes # 0.9 Eosinophils # 0.9 H Basophils # 0.1 Nucleated Red Blood Cells # 0.0 Sodium Level 142 Potassium Level 3.7 Chloride Level 108 Carbon Dioxide Level 31 Anion Gap 3 L Blood Urea Nitrogen 20 Creatinine 1.04 Est Glomerular Filtrat Rate mL/min > 60 Glucose Level 128 Calcium Level 8.0 L Magnesium Level 1.7 Total Bilirubin 0.2 Direct Bilirubin 0.00 Indirect Bilirubin 0.2 Aspartate Amino Transf (AST/SGOT) 188 H Alanine Aminotransferase (ALT/SGPT) 182 H Alkaline Phosphatase 110 Creatine Kinase 4527 #H Total Protein 5.3 L Albumin 2.7 L Vancomycin Level Trough 9.2 L Consultation Date/Type/Reason Admit Date/Time Jun 25, 2018 at 10:52 Type of Consult Neurology Reason for Consultation ams Date/Time of Note DATE: 07/01/18 TIME: 14:42 24 HR Interval Summary Free Text/Dictation Continues critical care. Pt reportedly became increasingly agitated when sedation was weaned. Otherwise no acute events reported. Exam Vital Signs Vitals Vital Signs Date Temp Pulse Resp B/P (MAP) Pulse Ox O2 O2 Flow FiO2 Time Delivery Rate 07/01/18 78 12:00 07/01/18 18 91/52 (65) 99 11:00 07/01/18 30 09:13 07/01/18 100.1 08:00 07/01/18 Mechanica 07:00 l Ventilato r Intake and Output 06/30/18 06/30/18 07/01/18 1515:00 23:00 07:00 IntakeIntake Total 1724.586 ml 1994.336 ml 1519.093 ml OutputOutput Total 2200 ml 1410 ml 1160 ml BalanceBalance -475.414 ml 584.336 ml 359.093 ml Exam PE: Gen Appearance: No Apparent Distress HEENT: Intubated Cardiovascular: Regular rate Abdomen: Soft Extremities: Dry NE: The patient was obtunded and nonverbal. Did not open eyes or grimace to noxious stimuli. Cranial nerve examination was limited by mental status. Pupils were equal and reactive to light. There was no afferent pupillary defect. Funduscopic exami nation was limited. Face was grossly symmetric, w/ present corneal and cough reflexes. Tone was normal. Muscle bulk was normal. I did not see fasciculations. The patient was minimally moving his extremities spontaneously. Coordination and gait testing was limited by mental status. Arm and leg reflexes were within normal limits and symmetric. Milian's sign was absent. Plantar responses were flexor. KM CH NP Jul 01, 2018 14:42 EUGENIA VILLEGAS Jul 01, 2018 19:33
--- NOTE | 2018-07-01 15:37 | CONS ---
Date/Time of Note Date/Time of Note DATE: 07/01/18 TIME: 15:37 Assessment/Plan Assessment/Plan Hospital Course Assessment: Mildly elevated troponin - likely type 2 NSTEMI versus rhabdomyolysis Cardiomyopathy, LVEF 40% - ischemic vs drug use Polysubstance abuse - urine toxicology positive for opiates, benzodiazepines, cocaine, cannabinoids Acute metabolic encephalopathy Acute hypoxic respiratory failure - intubated and on mechanical ventilation Aspiration and probable pneumonia Acute kidney injury Recommendations: -echocardiogram showed LVEF 40% with global hypokinesis -will eventually need coronary evaluation once acute issues resolved Result Diagram: 07/01/18 0425 07/01/18 0425 Results 24hrs Laboratory Tests Test 07/01/18 04:25 White Blood Count 11.8 H Red Blood Count 3.06 L Hemoglobin 9.5 L Hematocrit 27.9 L Mean Corpuscular Volume 91.2 Mean Corpuscular Hemoglobin 31.0 Mean Corpuscular Hemoglobin Concent 34.1 Red Cell Distribution Width 13.2 Platelet Count 229 # Mean Platelet Volume 10.4 Immature Granulocytes % 2.100 H Neutrophils % 64.1 Lymphocytes % 17.5 Monocytes % 7.9 Eosinophils % 7.9 H Basophils % 0.5 Nucleated Red Blood Cells % 0.0 Immature Granulocytes # 0.250 H Neutrophils # 7.6 H Lymphocytes # 2.1 Monocytes # 0.9 Eosinophils # 0.9 H Basophils # 0.1 Nucleated Red Blood Cells # 0.0 Sodium Level 142 Potassium Level 3.7 Chloride Level 108 Carbon Dioxide Level 31 Anion Gap 3 L Blood Urea Nitrogen 20 Creatinine 1.04 Est Glomerular Filtrat Rate mL/min > 60 Glucose Level 128 Calcium Level 8.0 L Magnesium Level 1.7 Total Bilirubin 0.2 Direct Bilirubin 0.00 Indirect Bilirubin 0.2 Aspartate Amino Transf (AST/SGOT) 188 H Alanine Aminotransferase (ALT/SGPT) 182 H Alkaline Phosphatase 110 Creatine Kinase 4527 #H Total Protein 5.3 L Albumin 2.7 L Vancomycin Level Trough 9.2 L Consultation Date/Type/Reason Admit Date/Time Jun 25, 2018 at 10:52 Initial Consult Date 06/26/18 Type of Consult Cardiology 24 HR Interval Summary Free Text/Dictation Remains intubated and sedated. Detailed Summary Additional Comments Unable to obtain review of systems, patient is intubated. Exam/Review of Systems Vital Signs Vitals Vital Signs Date Temp Pulse Resp B/P (MAP) Pulse Ox O2 O2 Flow FiO2 Time Delivery Rate 07/01/18 78 12:00 07/01/18 18 91/52 (65) 99 11:00 07/01/18 30 09:13 07/01/18 100.1 08:00 07/01/18 Mechanica 07:00 l Ventilato r Intake and Output 06/30/18 06/30/18 07/01/18 1414:59 22:59 06:59 IntakeIntake Total 1780.836 ml 1927.086 ml 1656.635 ml OutputOutput Total 2200 ml 1235 ml 1335 ml BalanceBalance -419.164 ml 692.086 ml 321.635 ml Exam Constitutional: No alert, No oriented Psych: confusion; No nl mood/affect Head: normocephalic, atraumatic Eyes: nl conjunctiva, nl lids ENMT: nl external ears & nose, nl nasal mucosa & septum Neck: supple, non-tender Respiratory: crackles/rales, diminished breath sounds Cardiovascular: regular rate and rhythm Gastrointestinal: soft, non-tender Musculoskeletal: nl extremities to inspection Extremities: No cyanosis, No clubbing, No edema Neurological: No nl mental status, No nl speech Medications Medications Current Medications Ondansetron HCl (Zofran Inj) 4 mg Q6H PRN IV NAUSEA AND/OR VOMITING; Start 06/25/18 at 14:00 Albuterol (Proventil 0.083% (Neb)) 2.5 mg Q2H RESP THERAPY PRN NEB SHORTNESS OF BREATH; Start 06/25/18 at 14:00 Acetaminophen (Tylenol Supp) [address] PAIN LEVEL 1-3 OR FEVER Last administered on 06/26/18at 04:00; Admin Dose 650 MG; Start 06/25/18 at 14:00 Piperacillin Sod/ Tazobactam Sod 100 ml @ 200 mls/hr Q8 IVPB Last administered on 07/01/18at 15:30; Admin Dose 200 MLS/HR; Start 06/25/18 at 14:00 Fentanyl 100 ml @ 2.5 mls/hr TITRATE IV Last administered on 07/01/18at 15:21; Admin Dose 10 MLS/HR; Start 06/25/18 at 17:30 Midazolam HCl 50 ml @ 1 mls/hr TITRATE IV Last administered on 07/01/18at 12:02; Admin Dose 9 MLS/HR; Start 06/25/18 at 23:00 Levofloxacin/ Dextrose 50 ml @ 50 mls/hr Q24H IVPB Last administered on 07/01/18at 08:57; Admin Dose 50 MLS/HR; Start 06/26/18 at 09:00 Pantoprazole (Protonix Iv) 40 mg BID@06,18 IV Last administered on 07/01/18at 05:34; Admin Dose 40 MG; Start 06/26/18 at 18:00 Acetaminophen (Tylenol Liquid) 650 mg Q4H PRN GTB MILD PAIN(1-3)OR ELEVATED TEMP Last administered on 06/29/18at 01:42; Admin Dose 650 MG; Start 06/27/18 at 01:30 Propofol 100 ml @ 2.757 mls/ hr Q12H IV Last administered on 07/01/18at 15:19; Admin Dose 22.056 MLS/HR; Start 06/27/18 at 22:00 IV Flush (NS 10 ml) 10 ml PRN PRN IV FLUSH LINE; Start 06/28/18 at 13:00 Heparin Sodium (Porcine) (Heparin (5000 Units/1ml)) 5,000 unit BID SC Last administered on 07/01/18at 08:58; Admin Dose 5,000 UNIT; Start 06/28/18 at 21:00 Vancomycin HCl (Vanco Iv Per Pharmacy) VANCOMYCIN PER PHARMACY PER PROTOCOL XX ; Start 06/28/18 at 15:00 Aspirin (Aspirin) 81 mg DAILY NGT Last administered on 07/01/18at 08:56; Admin Dose 81 MG; Start 06/28/18 at 16:30 Vancomycin HCl 1.5 gm/Sodium Chloride 250 ml @ 83.333 mls/ hr Q12H IVPB Last administered on 07/01/18at 06:37; Admin Dose 83.333 MLS/HR; Start 07/01/18 at 06:00 Miscellaneous Information (*Rx Drug Level Order Reminder*) VANCO TR AT 1,700 ONCE ONCE XX ; Start 07/02/18 at 17:00; Stop 07/02/18 at 17:01 Lorazepam (Ativan) 1 mg Q2H PRN GTB ANXIETY; Start 07/01/18 at 10:30 IRVIN COLLAZO MD Jul 01, 2018 15:37
--- NOTE | 2018-07-01 16:48 | RADRPT ---
Vent Rate: 96 bpm RR Interval: 0 msec FL Interval: 122 msec QRS Duration: 92 msec QT Interval: 420 msec QTC Interval: 530 msec P-R-T Cope: 53 - 85 - 69 degrees Normal sinus rhythm Cannot rule out Anterior infarct , age undetermined Prolonged QT Abnormal ECG Electronically Signed By: Frandy Honeycutt [id number]
--- NOTE | 2018-07-01 18:38 | PN ---
Date/Time of Note Date/Time of Note DATE: 07/01/18 TIME: 09:36 Assessment/Plan VTE Prophylaxis Risk score (from Nsg)>0 risk: 7 SCD applied (from Nsg): Yes Pharmacological prophylaxis: heparin Lines/Catheters IV Catheter Type (from Nrsg): PICC Line Central line still needed: Yes Urinary Cath still in place: Yes Reason Cath still needed: other (indicate) Assessment/Plan Assessment/Plan subjective: Patient seen and examined. Remains Intubated and sedated for comfort, but no pressor support. fever improving Objective: GENERAL: Intubated and comfortably sedated HEENT: EDMOND, Intubated, Vent settings noted , high peep of 8 LUNGS: diffusely diminished and coarse BS HEART: S1, S2. No murmur, gallops or rubs. ABDOMEN: Soft, non distended, Normoactive bowel sounds. GENITOURINARY: Normal male external genitalia, Potter to bedside drainage with good UO EXTREMITIES: Trace edema developing in bilateral hands and feet bilaterally NEUROLOGIC: The patient is currently sedated, requiring bilateral restraints SKIN: Otherwise, unremarkable. assessment and plan: 37 yo M found unresponsive outside his home garage managed in ICU as follows: 1. Acute encephalopathy -toxic metabolic r/o HIE -multiple substances including cocaine / BZD / THC in urine drug screen -responded to narcan by EMS -Patient initially had complete RUE paresis, but this seems to have improved -patient likely has suffered neurologic insult, CT brain negative, needs MRI when more stable 2. Acute Resp failure: -s/p ET intubation and remains Vent dependent -o2 requirements improved -Pulm following and managing 3. Renal failure: resolved -acute, ?ATN from drugs versus severe dehydration -nephro managing 4. Severe hypothermia: resolved -s/p warming measures 5. Metabolic acidosis: improved -2/2 renal failure and drugs, 6. Severe Rhabdomyolysis -Fluid management per nephrology -levels improving 7. Hyperkalemia: 2/2 renal failure -no EKG changes -repeat levels at this time, intervene with cocktail if indicated 8. Sepsis with roz Pneumonia and UTI, ?aspiration -likely sequelae of encephalopathy -Repeat blood cultures negative so far -Continue current abx, appreciate ID recs 9. Elevated troponins vs NSTEMI -resumed aspirin -echocardiogram showed LVEF 40% with global hypokinesis -will eventually need coronary evaluation once acute issues resolved 10. Multisubstance abuse -urine drug screen positive for cocaine / BZD / THC / Opiate -will need counselling if / when mentation improves 11. Enterococcus UTI -continue abx 12. Hypernatremia and hypophosphatemia: resolved - continue monitoring 13. S/p Epistaxis -aspirin resumed, continue to monitor -remains on PPI BID Prophylaxis: Pepcid / Heparin FEN: Tube feedings / 1/2 NS @50cc/hr Further evaluation and treatment will be based on clinical course CRITICAL CARE TIME: >35 mins of which more than half was spent at the bedside and during counselling Result Diagram: 07/01/18 0425 07/01/18 0425 Results 24hrs Laboratory Tests Test 07/01/18 04:25 White Blood Count 11.8 H Red Blood Count 3.06 L Hemoglobin 9.5 L Hematocrit 27.9 L Mean Corpuscular Volume 91.2 Mean Corpuscular Hemoglobin 31.0 Mean Corpuscular Hemoglobin Concent 34.1 Red Cell Distribution Width 13.2 Platelet Count 229 # Mean Platelet Volume 10.4 Immature Granulocytes % 2.100 H Neutrophils % 64.1 Lymphocytes % 17.5 Monocytes % 7.9 Eosinophils % 7.9 H Basophils % 0.5 Nucleated Red Blood Cells % 0.0 Immature Granulocytes # 0.250 H Neutrophils # 7.6 H Lymphocytes # 2.1 Monocytes # 0.9 Eosinophils # 0.9 H Basophils # 0.1 Nucleated Red Blood Cells # 0.0 Sodium Level 142 Potassium Level 3.7 Chloride Level 108 Carbon Dioxide Level 31 Anion Gap 3 L Blood Urea Nitrogen 20 Creatinine 1.04 Est Glomerular Filtrat Rate mL/min > 60 Glucose Level 128 Calcium Level 8.0 L Magnesium Level 1.7 Total Bilirubin 0.2 Direct Bilirubin 0.00 Indirect Bilirubin 0.2 Aspartate Amino Transf (AST/SGOT) 188 H Alanine Aminotransferase (ALT/SGPT) 182 H Alkaline Phosphatase 110 Creatine Kinase 4527 #H Total Protein 5.3 L Albumin 2.7 L Vancomycin Level Trough 9.2 L Exam/Review of Systems Vital Signs Vitals Vital Signs Date Temp Pulse Resp B/P (MAP) Pulse Ox O2 O2 Flow FiO2 Time Delivery Rate 07/01/18 76 18 96 30 17:30 07/01/18 111/62 16:00 (78) 07/01/18 100.3 12:00 07/01/18 Mechanica 07:00 l Ventilato r Intake and Output 06/30/18 06/30/18 07/01/18 1515:00 23:00 07:00 IntakeIntake Total 1724.586 ml 1994.336 ml 1519.093 ml OutputOutput Total 2200 ml 1410 ml 1160 ml BalanceBalance -475.414 ml 584.336 ml 359.093 ml Medications Medications Current Medications Ondansetron HCl (Zofran Inj) 4 mg Q6H PRN IV NAUSEA AND/OR VOMITING; Start 06/25/18 at 14:00 Albuterol (Proventil 0.083% (Neb)) 2.5 mg Q2H RESP THERAPY PRN NEB SHORTNESS OF BREATH; Start 06/25/18 at 14:00 Acetaminophen (Tylenol Supp) 650 mg Q4H PRN [place] PAIN LEVEL 1-3 OR FEVER Last administered on 06/26/18at 04:00; Admin Dose 650 MG; Start 06/25/18 at 14:00 Piperacillin Sod/ Tazobactam Sod 100 ml @ 200 mls/hr Q8 IVPB Last administered on 07/01/18at 15:30; Admin Dose 200 MLS/HR; Start 06/25/18 at 14:00 Fentanyl 100 ml @ 2.5 mls/hr TITRATE IV Last administered on 07/01/18at 15:21; Admin Dose 10 MLS/HR; Start 06/25/18 at 17:30 Midazolam HCl 50 ml @ 1 mls/hr TITRATE IV Last administered on 07/01/18at 12:02; Admin Dose 9 MLS/HR; Start 06/25/18 at 23:00 Levofloxacin/ Dextrose 50 ml @ 50 mls/hr Q24H IVPB Last administered on 06/06 01/20at 08:57; Admin Dose 50 MLS/HR; Start 06/26/18 at 09:00 Pantoprazole (Protonix Iv) 40 mg BID@06,18 IV Last administered on 07/01/18at 18:17; Admin Dose 40 MG; Start 06/26/18 at 18:00 Acetaminophen (Tylenol Liquid) 650 mg Q4H PRN GTB MILD PAIN(1-3)OR ELEVATED TEMP Last administered on 06/29/18at 01:42; Admin Dose 650 MG; Start 06/27/18 at 01:30 Propofol 100 ml @ 2.757 mls/ hr Q12H IV Last administered on 07/01/18at 15:19; Admin Dose 22.056 MLS/HR; Start 06/27/18 at 22:00 IV Flush (NS 10 ml) 10 ml PRN PRN IV FLUSH LINE; Start 06/28/18 at 13:00 Heparin Sodium (Porcine) (Heparin (5000 Units/1ml)) 5,000 unit BID SC Last administered on 07/01/18at 08:58; Admin Dose 5,000 UNIT; Start 06/28/18 at 21:00 Vancomycin HCl (Vanco Iv Per Pharmacy) VANCOMYCIN PER PHARMACY PER PROTOCOL XX ; Start 06/28/18 at 15:00 Aspirin (Aspirin) 81 mg DAILY NGT Last administered on 07/01/18at 08:56; Admin Dose 81 MG; Start 06/28/18 at 16:30 Vancomycin HCl 1.5 gm/Sodium Chloride 250 ml @ 83.333 mls/ hr Q12H IVPB Last administered on 07/01/18at 18:16; Admin Dose 83.333 MLS/HR; Start 07/01/18 at 06:00 Miscellaneous Information (*Rx Drug Level Order Reminder*) VANCO TR AT 1,700 ONCE ONCE XX ; Start 07/02/18 at 17:00; Stop 07/02/18 at 17:01 Lorazepam (Ativan) 1 mg Q2H PRN GTB ANXIETY; Start 07/01/18 at 10:30 JOSIAS HUANG Jul 01, 2018 18:38
--- NOTE | 2018-07-01 19:19 | NUR ---
Report given to oncoming nurse. VSS
[2018-07-02] VITALS (45 sets, daily range): BP systolic 89–122; BP diastolic 45–74; PULSE 69–97; RESP 10–29
[2018-07-02] MEDS: PROPOFOL 100 ML IV SCH ×4 (00:22→19:35)
[2018-07-02] MEDS: MIDAZOLAM (DRIP) 50 mg/50 mL 50 ML IV SCH ×4 (03:23→22:55)
[2018-07-02] MEDS: FENTAnyl (DRIP) 1000 mcg/100mL 100 ML IV SCH ×2 (05:03→14:06)
[2018-07-02] MEDS: PIPER-TAZO 3.375 GM IV (PMX) 100 ML IVPB SCH ×3 (05:22→22:57)
[2018-07-02] MEDS: PANTOPRAZOLE 40 MG INJ IV SCH ×2 (05:22→18:35)
[2018-07-02] MEDS: VANCOMYCIN 1.5 GM in SOD CHLORIDE 0.9% 250 ML IVPB SCH ×2 (06:44→19:32)
--- NOTE | 2018-07-02 07:50 | NUR ---
EOSS Pt remains intubated/sedated. Pt continues to become agitated when sedation lowered or paused, will attempt to move arms and will kick legs up. Pt HR and BP remained WNL, SpO2 remained >92% Pt continued to have moderate amount of secretions. Potter remains patent. Rectal tube flushed with 200ml output throughout shift. Tolerating tube feeds. pt turned q2h. Bedside report given to chantell GILES
--- NOTE | 2018-07-02 08:27 | PN ---
Date/Time of Note Date/Time of Note DATE: 07/02/18 TIME: 08:20 Assessment/Plan VTE Prophylaxis Risk score (from Ns)>0 risk: 10 SCD applied (from Ns): Yes Pharmacological prophylaxis: heparin Lines/Catheters IV Catheter Type (from Nrsg): PICC Line Central line still needed: Yes Urinary Cath still in place: Yes Reason Cath still needed: other (indicate) Assessment/Plan Result Diagram: 07/02/18 0500 07/02/18 0500 Results 24hrs Laboratory Tests Test 07/02/18 05:00 White Blood Count 10.8 Red Blood Count 3.03 L Hemoglobin 9.5 L Hematocrit 27.2 L Mean Corpuscular Volume 89.8 Mean Corpuscular Hemoglobin 31.4 Mean Corpuscular Hemoglobin Concent 34.9 Red Cell Distribution Width 13.1 Platelet Count 271 Mean Platelet Volume 10.3 Immature Granulocytes % 2.200 H Neutrophils % 57.8 Lymphocytes % 20.1 Monocytes % 10.4 Eosinophils % 9.0 H Basophils % 0.5 Nucleated Red Blood Cells % 0.0 Immature Granulocytes # 0.240 H Neutrophils # 6.3 Lymphocytes # 2.2 Monocytes # 1.1 H Eosinophils # 1.0 H Basophils # 0.1 Nucleated Red Blood Cells # 0.0 Sodium Level 146 H Potassium Level 3.9 Chloride Level 107 Carbon Dioxide Level 32 H Anion Gap 7 Blood Urea Nitrogen 20 Creatinine 0.99 Est Glomerular Filtrat Rate mL/min > 60 Glucose Level 113 Calcium Level 8.4 Total Bilirubin 0.1 L Direct Bilirubin 0.00 Indirect Bilirubin 0.1 Aspartate Amino Transf (AST/SGOT) 185 H Alanine Aminotransferase (ALT/SGPT) 187 H Alkaline Phosphatase 99 Creatine Kinase 2466 H Total Protein 4.8 L Albumin 2.5 L Subjective 24 Hr Interval Summary Free Text/Dictation subjective: Patient seen and examined. Remains Intubated and sedated for comfort, but no pressor support. Gets very agitated off sedation limiting weaning per pulm Objective: GENERAL: Intubated and comfortably sedated HEENT: EDMOND, Intubated, Vent settings noted , high peep of 8 LUNGS: diffusely diminished but clear BS HEART: S1, S2. No murmur, gallops or rubs. ABDOMEN: Soft, non distended, Normoactive bowel sounds. GENITOURINARY: Normal male external genitalia, Potter to bedside drainage with good UO EXTREMITIES: Trace edema developing in bilateral hands and feet bilaterally NEUROLOGIC: The patient is currently sedated, requiring bilateral restraints SKIN: Otherwise, unremarkable. assessment and plan: 37 yo M found unresponsive outside his home garage managed in ICU as follows: 1. Acute encephalopathy -toxic metabolic r/o HIE -multiple substances including cocaine / BZD / THC in urine drug screen -responded to narcan by EMS -Patient initially had complete RUE paresis, but this seems to have improved -patient likely has suffered neurologic insult, CT brain negative, needs MRI when more stable 2. Acute Resp failure: -s/p ET intubation and remains Vent dependent -o2 requirements improved -Gets very agitated off sedation limiting weaning per pulm, will add short course of librium 3. Renal failure: resolved -acute, ?ATN from drugs versus severe dehydration -nephro managing 4. Sepsis with roz Pneumonia and UTI, ?aspiration -likely sequelae of encephalopathy -Repeat blood cultures negative so far -Continue current abx, appreciate ID recs 5. Metabolic acidosis: improved -2/2 renal failure and drugs, 6. Severe Rhabdomyolysis -Fluid management per nephrology -levels improving 7. Elevated troponins vs NSTEMI -resumed aspirin -echocardiogram showed LVEF 40% with global hypokinesis -will eventually need coronary evaluation once acute issues resolved 8. Multisubstance abuse with ?withdrawal -urine drug screen positive for cocaine / BZD / THC / Opiate -will need counselling if / when mentation improves 9. Enterococcus UTI -continue abx 10. Severe hypothermia: resolved -s/p warming measures 11. S/p Epistaxis -had transient bleeding into facemask upon initial admission -aspirin resumed, no further episodes, continue to monitor -remains on PPI BID Prophylaxis: Pepcid / Heparin FEN: Tube feedings / lasix 40mg ID daily Further evaluation and treatment will be based on clinical course CRITICAL CARE TIME: >35 mins Exam/Review of Systems Vital Signs Vitals Vital Signs Date Temp Pulse Resp B/P (MAP) Pulse Ox O2 O2 Flow FiO2 Time Delivery Rate 07/02/18 83 23 108/60 98 Mechanical 07:00 (76) Ventilator 07/02/18 30 05:53 07/02/18 99.3 04:00 Intake and Output 07/01/18 07/01/18 07/02/18 1515:00 23:00 07:00 IntakeIntake Total 1294.7 ml 1646.046 ml 1373.736 ml OutputOutput Total 1250 ml 1595 ml 1650 ml BalanceBalance 44.7 ml 51.046 ml -276.264 ml Medications Medications Current Medications Ondansetron HCl (Zofran Inj) 4 mg Q6H PRN IV NAUSEA AND/OR VOMITING; Start 06/25/18 at 14:00 Albuterol (Proventil 0.083% (Neb)) 2.5 mg Q2H RESP THERAPY PRN NEB SHORTNESS OF BREATH; Start 06/25/18 at 14:00 Acetaminophen (Tylenol Supp) 650 mg Q4H PRN MS PAIN LEVEL 1-3 OR FEVER Last administered on 06/26/18at 04:00; Admin Dose 650 MG; Start 06/25/18 at 14:00 Piperacillin Sod/ Tazobactam Sod 100 ml @ 200 mls/hr Q8 IVPB Last administered on 07/02/18 05:22; Admin Dose 200 MLS/HR; Start 06/25/18 at 14:00 Fentanyl 100 ml @ 2.5 mls/hr TITRATE IV Last administered on 07/02/18 05:03; Admin Dose 10 MLS/HR; Start 06/25/18 at 17:30 Midazolam HCl 50 ml @ 1 mls/hr TITRATE IV Last administered on 07/02/18 03:23; Admin Dose 9 MLS/HR; Start 06/25/18 at 23:00 Levofloxacin/ Dextrose 50 ml @ 50 mls/hr Q24H IVPB Last administered on 07/01/18at 08:57; Admin Dose 50 MLS/HR; Start 06/26/18 at 09:00 Pantoprazole (Protonix Iv) 40 mg BID@06,18 IV Last administered on 07/02/18 05:22; Admin Dose 40 MG; Start 06/26/18 at 18:00 Acetaminophen (Tylenol Liquid) 650 mg Q4H PRN GTB MILD PAIN(1-3)OR ELEVATED TEMP Last administered on 06/29/18 01:42; Admin Dose 650 MG; Start 06/27/18 at 01:30 Propofol 100 ml @ 2.757 mls/ hr Q12H IV Last administered on 07/02/18 00:22; Admin Dose 26.467 MLS/HR; Start 06/27/18 at 22:00 IV Flush (NS 10 ml) 10 ml PRN PRN IV FLUSH LINE; Start 06/28/18 at 13:00 Heparin Sodium (Porcine) (Heparin (5000 Units/1ml)) 5,000 unit BID SC Last administered on 07/01/18at 21:18; Admin Dose 5,000 UNIT; Start 06/28/18 at 21:00 Vancomycin HCl (Vanco Iv Per Pharmacy) VANCOMYCIN PER PHARMACY PER PROTOCOL XX ; Start 06/28/18 at 15:00 Aspirin (Aspirin) 81 mg DAILY NGT Last administered on 07/01/18at 08:56; Admin Dose 81 MG; Start 06/28/18 at 16:30 Vancomycin HCl 1.5 gm/Sodium Chloride 250 ml @ 83.333 mls/ hr Q12H IVPB Last administered on 07/02/18at 06:44; Admin Dose 83.333 MLS/HR; Start 07/01/18 at 06:00 Miscellaneous Information (*Rx Drug Level Order Reminder*) VANCO TR AT 1,700 ONCE ONCE XX ; Start 07/02/18 at 17:00; Stop 07/02/18 at 17:01 Lorazepam (Ativan) 1 mg Q2H PRN GTB ANXIETY; Start 07/01/18 at 10:30 JOSIAS HUANG Jul 02, 2018 08:27
[2018-07-02] MEDS: CHLORDIAZEPOXIDE 25 MG CAP PO SCH ×3 (09:16→21:37)
[2018-07-02] MEDS: ASPIRIN 81 MG TAB NGT SCH (09:16)
[2018-07-02] MEDS: LEVOFLOXACIN 250MG/D5W (PMX) 50 ML IVPB SCH (09:16)
[2018-07-02] MEDS: HEPARIN 5,000 UNIT/1 ML VIAL SC SCH ×2 (09:19→21:37)
--- NOTE | 2018-07-02 10:30 | PN ---
DATE: 07/02/2018 SUBJECTIVE: The patient remains critically ill on full ventilatory support. No other acute events n oted. No hemoptysis, hematemesis, hematochezia. OBJECTIVE: VITAL SIGNS: Blood pressure is 93/46, respiratory rate 22, pulse 78, temperature 98.6. HEENT: Head is normocephalic. NECK: Supple. HEART: Regular rate. LUNGS: Show diminished breath sounds at the base. ABDOMEN: Soft, nontender to palpation without rebound or guarding. EXTREMITIES: Negative for clubbing, cyanosis. Trace edema. DERMATOLOGIC: No rashes. MUSCULOSKELETAL: No joint effusion. NEUROLOGIC: No change in exam. MEDICATIONS: Reviewed. LABORATORY DATA: Sodium 146, BUN 28, creatinine 0.99. White count 10.8, hemoglobin 9.5, platelet co unt is 271. Patient's CK level is 2400. IMAGING STUDIES: Have been reviewed. ASSESSMENT AND PLAN: 1. Nonoliguric acute kidney injury with unknown baseline creatinine. Etiology secondary to acute tu bular necrosis due to associated acute kidney injury from rhabdomyolysis, shock, nephrotoxicity. The patient is in recovery phase of acute tubular necrosis diuretic phase. Renal functions have im proved. Continue to monitor electrolytes. Continue supportive care, renally dose all meds. 2. Rhabdomyolysis. CK levels are markedly improved. Continue to monitor. 3. Mineral bone disorder, monitor calcium and phosphorus levels. 4. Anemia. Monitor hemoglobin and hematocrit levels. 5. Volume overload. Patient is making good urinary output. Will give intermittent diuretic therapy as needed. 6. Hypernatremia. We will increase free water flushes 300 mL q.4h. 7. Ventilator-dependent respiratory failure. Vent settings and ABG reviewed. Continue to monitor. 8. Sepsis secondary to pneumonia. Continue current antibiotic regimen. 9. Acute encephalopathy, etiology is multifactorial. Continue to monitor. 10. Cardiomyopathy with ejection fraction 40%. 11. Polysubstance abuse. Continue to monitor. 12. Nutrition/dysphagia. Continue tube feeding. Dictated By: UMAIR VALDEZ/NTS Conf#: [id number] DID#: [id number] CC: IRVIN COLLAZO MD; JOSIAS HUANG MD;*EndCC*
--- NOTE | 2018-07-02 11:33 | CONS ---
Date/Time of Note Date/Time of Note DATE: 07/02/18 TIME: 11:31 Consult Date/Type/Reason Admit Date/Time Jun 25, 2018 at 10:52 Initial Consult Date 06/26/18 Type of Consultation: Pulmonary ICU Subjective Remains intubated sedated continues multiple sedatives. Currently hemodynamically stable. Remains febrile chest x-ray demonstrating pulmonary infiltrates. Objective Vital Signs Date Temp Pulse Resp B/P (MAP) Pulse Ox O2 O2 Flow FiO2 Time Delivery Rate 07/02/18 97 08:00 07/02/18 23 108/60 98 Mechanical 07:00 (76) Ventilator 07/02/18 30 05:53 07/02/18 99.3 04:00 Intake and Output 07/01/18 07/01/18 07/02/18 1515:00 23:00 07:00 IntakeIntake Total 1294.7 ml 1646.046 ml 1373.736 ml OutputOutput Total 1250 ml 1595 ml 1650 ml BalanceBalance 44.7 ml 51.046 ml -276.264 ml Exam GENERAL: Morbidly obese gentleman orally intubated VITAL SIGNS: per chart NECK: Supple. No JVD or lymphadenopathy. CARDIAC EXAM: S1, S2. No added sounds or murmurs. CHEST: clear bilaterally, No added sounds, rales or wheezes ABDOMEN: Soft, nontender. No guarding or rebound. EXTREMITIES: No cyanosis, clubbing or edema. NEUROLOGIC: Generalized weakness. No focal deficits. Results/Medications Result Diagram: 07/02/18 0500 07/02/18 0500 Results 24 hrs Laboratory Tests Test 07/02/18 05:00 White Blood Count 10.8 Red Blood Count 3.03 L Hemoglobin 9.5 L Hematocrit 27.2 L Mean Corpuscular Volume 89.8 Mean Corpuscular Hemoglobin 31.4 Mean Corpuscular Hemoglobin Concent 34.9 Red Cell Distribution Width 13.1 Platelet Count 271 Mean Platelet Volume 10.3 Immature Granulocytes % 2.200 H Neutrophils % 57.8 Lymphocytes % 20.1 Monocytes % 10.4 Eosinophils % 9.0 H Basophils % 0.5 Nucleated Red Blood Cells % 0.0 Immature Granulocytes # 0.240 H Neutrophils # 6.3 Lymphocytes # 2.2 Monocytes # 1.1 H Eosinophils # 1.0 H Basophils # 0.1 Nucleated Red Blood Cells # 0.0 Sodium Level 146 H Potassium Level 3.9 Chloride Level 107 Carbon Dioxide Level 32 H Anion Gap 7 Blood Urea Nitrogen 20 Creatinine 0.99 Est Glomerular Filtrat Rate mL/min > 60 Glucose Level 113 Calcium Level 8.4 Total Bilirubin 0.1 L Direct Bilirubin 0.00 Indirect Bilirubin 0.1 Aspartate Amino Transf (AST/SGOT) 185 H Alanine Aminotransferase (ALT/SGPT) 187 H Alkaline Phosphatase 99 Creatine Kinase 2466 H Total Protein 4.8 L Albumin 2.5 L Medications Current Medications Ondansetron HCl (Zofran Inj) 4 mg Q6H PRN IV NAUSEA AND/OR VOMITING; Start 06/25/18 at 14:00 Albuterol (Proventil 0.083% (Neb)) 2.5 mg Q2H RESP THERAPY PRN NEB SHORTNESS OF BREATH; Start 06/25/18 at 14:00 Acetaminophen (Tylenol Supp) 650 mg Q4H PRN SC PAIN LEVEL 1-3 OR FEVER Last administered on 06/26/18at 04:00; Admin Dose 650 MG; Start 06/25/18 at 14:00 Piperacillin Sod/ Tazobactam Sod 100 ml @ 200 mls/hr Q8 IVPB Last administered on 07/02/18 05:22; Admin Dose 200 MLS/HR; Start 06/25/18 at 14:00 Fentanyl 100 ml @ 2.5 mls/hr TITRATE IV Last administered on 07/02/18 05:03; Admin Dose 10 MLS/HR; Start 06/25/18 at 17:30 Midazolam HCl 50 ml @ 1 mls/hr TITRATE IV Last administered on 07/02/18at 09:47; Admin Dose 10 MLS/HR; Start 06/25/18 at 23:00 Levofloxacin/ Dextrose 50 ml @ 50 mls/hr Q24H IVPB Last administered on 09:16; Admin Dose 50 MLS/HR; Start 06/26/18 at 09:00 Pantoprazole (Protonix Iv) 40 mg BID@06,18 IV Last administered on 07/02/18 05:22; Admin Dose 40 MG; Start 06/26/18 at 18:00 Acetaminophen (Tylenol Liquid) 650 mg Q4H PRN GTB MILD PAIN(1-3)OR ELEVATED TEMP Last administered on 06/29/18at 01:42; Admin Dose 650 MG; Start 06/27/18 at 01:30 Propofol 100 ml @ 2.757 mls/ hr Q12H IV Last administered on 07/02/18at 08:31; Admin Dose 27.57 MLS/HR; Start 06/27/18 at 22:00 IV Flush (NS 10 ml) 10 ml PRN PRN IV FLUSH LINE; Start 06/28/18 at 13:00 Heparin Sodium (Porcine) (Heparin (5000 Units/1ml)) 5,000 unit BID SC Last administered on 07/02/18at 09:19; Admin Dose 5,000 UNIT; Start 06/28/18 at 21:00 Vancomycin HCl (Vanco Iv Per Pharmacy) VANCOMYCIN PER PHARMACY PER PROTOCOL XX ; Start 06/28/18 at 15:00 Aspirin (Aspirin) 81 mg DAILY NGT Last administered on 07/02/18at 09:16; Admin Dose 81 MG; Start 06/28/18 at 16:30 Vancomycin HCl 1.5 gm/Sodium Chloride 250 ml @ 83.333 mls/ hr Q12H IVPB Last administered on 07/02/18at 06:44; Admin Dose 83.333 MLS/HR; Start 07/01/18 at 06:00 Miscellaneous Information (*Rx Drug Level Order Reminder*) VANCO TR AT 1,700 ONCE ONCE XX ; Start 07/02/18 at 17:00; Stop 07/02/18 at 17:01 Lorazepam (Ativan) 1 mg Q2H PRN GTB ANXIETY; Start 07/01/18 at 10:30 Chlordiazepoxide (Librium) 25 mg TID PO Last administered on 07/02/18at 09:16; Admin Dose 25 MG; Start 07/02/18 at 09:00; Stop 07/05/18 at 08:59 Assessment/Plan Chief Complaint/Hosp Course Assessment 1. Acute hypoxemic respiratory failure, possible pulmonary edema and aspiration 2. Polysubstance abuse with encephalopathy 3. Status post shock 4. Improving rhabdomyolysis 5. Resolved thrombocytopenia Plan 1. Continue antibiotics 2. Gentle diuresis 3. Trial of Precedex decrease propofol and Versed 4. DVT GI prophylaxis 5. Tube feeding as tolerated Critical care time 40 minutes REBEL BUSTILLOS MD, [facility] Jul 02, 2018 11:33
--- NOTE | 2018-07-02 13:23 | CONS ---
Date/Time of Note Date/Time of Note DATE: 07/02/18 TIME: 13:21 Assessment/Plan Assessment/Plan Hospital Course Assessment: Mildly elevated troponin - likely type 2 NSTEMI versus rhabdomyolysis Cardiomyopathy, LVEF 40% - ischemic vs drug use Polysubstance abuse - urine toxicology positive for opiates, benzodiazepines, cocaine, cannabinoids Acute metabolic encephalopathy Acute hypoxic respiratory failure - intubated and on mechanical ventilation Aspiration and probable pneumonia Acute kidney injury - now resolved Recommendations: -started on Lasix 40mg IV daily -echocardiogram showed LVEF 40% with global hypokinesis -will eventually need coronary evaluation once acute issues resolved Result Diagram: 07/02/18 0500 07/02/18 0500 Results 24hrs Laboratory Tests Test 07/02/18 05:00 White Blood Count 10.8 Red Blood Count 3.03 L Hemoglobin 9.5 L Hematocrit 27.2 L Mean Corpuscular Volume 89.8 Mean Corpuscular Hemoglobin 31.4 Mean Corpuscular Hemoglobin Concent 34.9 Red Cell Distribution Width 13.1 Platelet Count 271 Mean Platelet Volume 10.3 Immature Granulocytes % 2.200 H Neutrophils % 57.8 Lymphocytes % 20.1 Monocytes % 10.4 Eosinophils % 9.0 H Basophils % 0.5 Nucleated Red Blood Cells % 0.0 Immature Granulocytes # 0.240 H Neutrophils # 6.3 Lymphocytes # 2.2 Monocytes # 1.1 H Eosinophils # 1.0 H Basophils # 0.1 Nucleated Red Blood Cells # 0.0 Sodium Level 146 H Potassium Level 3.9 Chloride Level 107 Carbon Dioxide Level 32 H Anion Gap 7 Blood Urea Nitrogen 20 Creatinine 0.99 Est Glomerular Filtrat Rate mL/min > 60 Glucose Level 113 Calcium Level 8.4 Total Bilirubin 0.1 L Direct Bilirubin 0.00 Indirect Bilirubin 0.1 Aspartate Amino Transf (AST/SGOT) 185 H Alanine Aminotransferase (ALT/SGPT) 187 H Alkaline Phosphatase 99 Creatine Kinase 2466 H Total Protein 4.8 L Albumin 2.5 L Consultation Date/Type/Reason Admit Date/Time Jun 25, 2018 at 10:52 Initial Consult Date 06/26/18 Type of Consult Cardiology 24 HR Interval Summary Free Text/Dictation Fever to 100.3 F. Remains intubated and sedated. Renal function has normalized. Detailed Summary Additional Comments Unable to obtain review of systems, patient is intubated. Exam/Review of Systems Vital Signs Vitals Vital Signs Date Temp Pulse Resp B/P (MAP) Pulse Ox O2 O2 Flow FiO2 Time Delivery Rate 07/02/18 97 08:00 07/02/18 23 108/60 98 Mechanical 07:00 (76) Ventilator 07/02/18 30 05:53 07/02/18 99.3 04:00 Intake and Output 07/01/18 07/01/18 07/02/18 1515:00 23:00 07:00 IntakeIntake Total 1294.7 ml 1646.046 ml 1373.736 ml OutputOutput Total 1250 ml 1595 ml 1650 ml BalanceBalance 44.7 ml 51.046 ml -276.264 ml Exam Constitutional: No alert, No oriented Psych: confusion; No nl mood/affect Head: normocephalic, atraumatic Eyes: nl conjunctiva, nl lids ENMT: nl external ears & nose, nl nasal mucosa & septum Neck: supple, non-tender Respiratory: crackles/rales, diminished breath sounds Cardiovascular: regular rate and rhythm Gastrointestinal: soft, non-tender Musculoskeletal: nl extremities to inspection Extremities: No cyanosis, No clubbing, No edema Neurological: No nl mental status, No nl speech Medications Medications Current Medications Ondansetron HCl (Zofran Inj) 4 mg Q6H PRN IV NAUSEA AND/OR VOMITING; Start 06/25/18 at 14:00 Albuterol (Proventil 0.083% (Neb)) 2.5 mg Q2H RESP THERAPY PRN NEB SHORTNESS OF BREATH; Start 06/25/18 at 14:00 Acetaminophen (Tylenol Supp) 650 mg Q4H PRN NE PAIN LEVEL 1-3 OR FEVER Last administered on 06/26/18at 04:00; Admin Dose 650 MG; Start 06/25/18 at 14:00 Piperacillin Sod/ Tazobactam Sod 100 ml @ 200 mls/hr Q8 IVPB Last administered on 07/02/18at 05:22; Admin Dose 200 MLS/HR; Start 06/25/18 at 14:00 Fentanyl 100 ml @ 2.5 mls/hr TITRATE IV Last administered on 07/02/18at 05:03; Admin Dose 10 MLS/HR; Start 06/25/18 at 17:30 Midazolam HCl 50 ml @ 1 mls/hr TITRATE IV Last administered on 07/02/18at 09:47; Admin Dose 10 MLS/HR; Start 06/25/18 at 23:00 Levofloxacin/ Dextrose 50 ml @ 50 mls/hr Q24H IVPB Last administered on 07/02/18at 09:16; Admin Dose 50 MLS/HR; Start 06/26/18 at 09:00 Pantoprazole (Protonix Iv) 40 mg BID@06,18 IV Last administered on 07/02/18at 05:22; Admin Dose 40 MG; Start 06/26/18 at 18:00 Acetaminophen (Tylenol Liquid) 650 mg Q4H PRN GTB MILD PAIN(1-3)OR ELEVATED TEMP Last administered on 06/29/18at 01:42; Admin Dose 650 MG; Start 06/27/18 at 01:30 Propofol 100 ml @ 2.757 mls/ hr Q12H IV Last administered on 07/02/18at 13:00; Admin Dose 16.542 MLS/HR; Start 06/27/18 at 22:00 IV Flush (NS 10 ml) 10 ml PRN PRN IV FLUSH LINE; Start 06/28/18 at 13:00 Heparin Sodium (Porcine) (Heparin (5000 Units/1ml)) 5,000 unit BID SC Last administered on 07/02/18 09:19; Admin Dose 5,000 UNIT; Start 06/28/18 at 21:00 Vancomycin HCl (Vanco Iv Per Pharmacy) VANCOMYCIN PER PHARMACY PER PROTOCOL XX ; Start 06/28/18 at 15:00 Aspirin (Aspirin) 81 mg DAILY NGT Last administered on 07/02/18at 09:16; Admin Dose 81 MG; Start 06/28/18 at 16:30 Vancomycin HCl 1.5 gm/Sodium Chloride 250 ml @ 83.333 mls/ hr Q12H IVPB Last administered on 07/02/18at 06:44; Admin Dose 83.333 MLS/HR; Start 07/01/18 at 06:00 Miscellaneous Information (*Rx Drug Level Order Reminder*) VANCO TR AT 1,700 ONCE ONCE XX ; Start 07/02/18 at 17:00; Stop 07/02/18 at 17:01 Lorazepam (Ativan) 1 mg Q2H PRN GTB ANXIETY; Start 07/01/18 at 10:30 Chlordiazepoxide (Librium) 25 mg TID PO Last administered on 07/02/18at 09:16; Admin Dose 25 MG; Start 07/02/18 at 09:00; Stop 07/05/18 at 08:59 Dexmedetomidine HCl 200 mcg/ Sodium Chloride 50 ml @ 4.6 mls/hr TITRATE IV ; Start 07/02/18 at 13:30 Furosemide (Lasix) 40 mg DAILY IV ; Start 07/02/18 at 12:00 IRVIN COLLAZO MD Jul 02, 2018 13:23
[2018-07-02] MEDS: FUROSEMIDE 40 MG INJ IV SCH (13:32)
--- NOTE | 2018-07-02 13:47 | CONS ---
Date/Time of Note Date/Time of Note DATE: 07/02/18 TIME: 13:46 Assessment/Plan Assessment/Plan Hospital Course No acute changes overnight patient is in no distress, with low-grade fevers, T- max 100.3 yesterday WBC 10.8 H&H 9.5 and 27.2 platelets 271 BUN 20 creatinine 0.99 Microbiology: Urine culture on admission grew enterococcus species, blood cultures had been negative sputum culture negative Indwelling: Endotracheal tube NG tube, Potter catheter right upper extremity PICC line 06/28/18 Antimicrobials: Vancomycin levofloxacin Zosyn Physical examination: Well-developed obese middle-aged man who is intubated sedated in no distress. Head atraumatic normocephalic neck is supple chest rise symmetrical breath sounds diminished bases. Heart: S1-S2. Abdomen soft bowel sounds hypoactive. Extremities without cyanosis. Assessment: 1. Sepsis secondary to bilateral pneumonia, possibly aspiration 2. Respiratory failure 3. Enterococcal UTI 4. Acute kidney failure/rhabdomyolysis 5. Acute encephalopathy, status post drug overdose 6. Transaminitis, likely shock liver 7. Non-ST elevation [place] 8. Polysubstance abuse Plan: Patient is hemodynamically stable, on appropriate antibiotics, continue present care, vent management per pulmonary Result Diagram: 07/02/18 0500 07/02/18 0500 Results 24hrs Laboratory Tests Test 07/02/18 05:00 White Blood Count 10.8 Red Blood Count 3.03 L Hemoglobin 9.5 L Hematocrit 27.2 L Mean Corpuscular Volume 89.8 Mean Corpuscular Hemoglobin 31.4 Mean Corpuscular Hemoglobin Concent 34.9 Red Cell Distribution Width 13.1 Platelet Count 271 Mean Platelet Volume 10.3 Immature Granulocytes % 2.200 H Neutrophils % 57.8 Lymphocytes % 20.1 Monocytes % 10.4 Eosinophils % 9.0 H Basophils % 0.5 Nucleated Red Blood Cells % 0.0 Immature Granulocytes # 0.240 H Neutrophils # 6.3 Lymphocytes # 2.2 Monocytes # 1.1 H Eosinophils # 1.0 H Basophils # 0.1 Nucleated Red Blood Cells # 0.0 Sodium Level 146 H Potassium Level 3.9 Chloride Level 107 Carbon Dioxide Level 32 H Anion Gap 7 Blood Urea Nitrogen 20 Creatinine 0.99 Est Glomerular Filtrat Rate mL/min > 60 Glucose Level 113 Calcium Level 8.4 Total Bilirubin 0.1 L Direct Bilirubin 0.00 Indirect Bilirubin 0.1 Aspartate Amino Transf (AST/SGOT) 185 H Alanine Aminotransferase (ALT/SGPT) 187 H Alkaline Phosphatase 99 Creatine Kinase 2466 H Total Protein 4.8 L Albumin 2.5 L Consultation Date/Type/Reason Admit Date/Time Jun 25, 2018 at 10:52 Initial Consult Date 06/26/18 Type of Consult id Exam/Review of Systems Vital Signs Vitals Vital Signs Date Temp Pulse Resp B/P (MAP) Pulse Ox O2 O2 Flow FiO2 Time Delivery Rate 07/02/18 97 08:00 07/02/18 23 108/60 98 Mechanical 07:00 (76) Ventilator 07/02/18 30 05:53 07/02/18 99.3 04:00 Intake and Output 07/01/18 07/01/18 07/02/18 1515:00 23:00 07:00 IntakeIntake Total 1294.7 ml 1646.046 ml 1373.736 ml OutputOutput Total 1250 ml 1595 ml 1650 ml BalanceBalance 44.7 ml 51.046 ml -276.264 ml Medications Medications Current Medications Ondansetron HCl (Zofran Inj) 4 mg Q6H PRN IV NAUSEA AND/OR VOMITING; Start 1 08/26/17 at 14:00 Albuterol (Proventil 0.083% (Neb)) 2.5 mg Q2H RESP THERAPY PRN NEB SHORTNESS OF BREATH; Start 06/25/18 at 14:00 Acetaminophen (Tylenol Supp) 650 mg Q4H PRN [place] PAIN LEVEL 1-3 OR FEVER Last administered on 06/26/18at 04:00; Admin Dose 650 MG; Start 06/25/18 at 14:00 Piperacillin Sod/ Tazobactam Sod 100 ml @ 200 mls/hr Q8 IVPB Last administered on 07/02/18at 13:32; Admin Dose 200 MLS/HR; Start 06/25/18 at 14:00 Fentanyl 100 ml @ 2.5 mls/hr TITRATE IV Last administered on 07/02/18at 05:03; Admin Dose 10 MLS/HR; Start 06/25/18 at 17:30 Midazolam HCl 50 ml @ 1 mls/hr TITRATE IV Last administered on 07/02/18at 09:47; Admin Dose 10 MLS/HR; Start 06/25/18 at 23:00 Levofloxacin/ Dextrose 50 ml @ 50 mls/hr Q24H IVPB Last administered on 07/02/18at 09:16; Admin Dose 50 MLS/HR; Start 06/26/18 at 09:00 Pantoprazole (Protonix Iv) 40 mg BID@06,18 IV Last administered on 07/02/18at 05:22; Admin Dose 40 MG; Start 06/26/18 at 18:00 Acetaminophen (Tylenol Liquid) 650 mg Q4H PRN GTB MILD PAIN(1-3)OR ELEVATED TEMP Last administered on 06/29/18at 01:42; Admin Dose 650 MG; Start 06/27/18 at 01:30 Propofol 100 ml @ 2.757 mls/ hr Q12H IV Last administered on 07/02/18at 13:00; Admin Dose 16.542 MLS/HR; Start 06/27/18 at 22:00 IV Flush (NS 10 ml) 10 ml PRN PRN IV FLUSH LINE; Start 06/28/18 at 13:00 Heparin Sodium (Porcine) (Heparin (5000 Units/1ml)) 5,000 unit BID SC Last administered on 07/02/18at 09:19; Admin Dose 5,000 UNIT; Start 06/28/18 at 21:00 Vancomycin HCl (Vanco Iv Per Pharmacy) VANCOMYCIN PER PHARMACY PER PROTOCOL XX ; Start 06/28/18 at 15:00 Aspirin (Aspirin) 81 mg DAILY NGT Last administered on 07/02/18at 09:16; Admin Dose 81 MG; Start 06/28/18 at 16:30 Vancomycin HCl 1.5 gm/Sodium Chloride 250 ml @ 83.333 mls/ hr Q12H IVPB Last administered on 07/02/18at 06:44; Admin Dose 83.333 MLS/HR; Start 07/01/18 at 06:00 Miscellaneous Information (*Rx Drug Level Order Reminder*) VANCO TR AT 1,700 ONCE ONCE XX ; Start 07/02/18 at 17:00; Stop 07/02/18 at 17:01 Lorazepam (Ativan) 1 mg Q2H PRN GTB ANXIETY; Start 07/01/18 at 10:30 Chlordiazepoxide (Librium) 25 mg TID PO Last administered on 12/28/18at 13:32; Admin Dose 25 MG; Start 07/02/18 at 09:00; Stop 07/05/18 at 08:59 Dexmedetomidine HCl 200 mcg/ Sodium Chloride 50 ml @ 4.6 mls/hr TITRATE IV ; Start 07/02/18 at 13:30 Furosemide (Lasix) 40 mg DAILY IV Last administered on 07/02/18at 13:32; Admin Dose 40 MG; Start 07/02/18 at 12:00 NISHA NASSAR NP Jul 02, 2018 13:47
--- NOTE | 2018-07-02 13:57 | CONS ---
Assessment/Plan Assessment/Plan Hospital Course Assessment/Plan 37 M c/ reported Hx of recreational drug abuse...who presents for evaluation of ams, after being found unconscious in his garage by his . Clinically consistent w/ an acute toxic encephalopathy.. Superimposed stroke is not yet excluded.. Seizure is unlikely.. Head CT is unrevealing. P: Wean chemical sedation as soon as medically able MRI brain for further characterization when able Medical management and supportive care per primary Will follow clinically Result Diagram: 07/02/18 0500 07/02/18 0500 Results 24hrs Laboratory Tests Test 07/02/18 05:00 White Blood Count 10.8 Red Blood Count 3.03 L Hemoglobin 9.5 L Hematocrit 27.2 L Mean Corpuscular Volume 89.8 Mean Corpuscular Hemoglobin 31.4 Mean Corpuscular Hemoglobin Concent 34.9 Red Cell Distribution Width 13.1 Platelet Count 271 Mean Platelet Volume 10.3 Immature Granulocytes % 2.200 H Neutrophils % 57.8 Lymphocytes % 20.1 Monocytes % 10.4 Eosinophils % 9.0 H Basophils % 0.5 Nucleated Red Blood Cells % 0.0 Immature Granulocytes # 0.240 H Neutrophils # 6.3 Lymphocytes # 2.2 Monocytes # 1.1 H Eosinophils # 1.0 H Basophils # 0.1 Nucleated Red Blood Cells # 0.0 Sodium Level 146 H Potassium Level 3.9 Chloride Level 107 Carbon Dioxide Level 32 H Anion Gap 7 Blood Urea Nitrogen 20 Creatinine 0.99 Est Glomerular Filtrat Rate mL/min > 60 Glucose Level 113 Calcium Level 8.4 Total Bilirubin 0.1 L Direct Bilirubin 0.00 Indirect Bilirubin 0.1 Aspartate Amino Transf (AST/SGOT) 185 H Alanine Aminotransferase (ALT/SGPT) 187 H Alkaline Phosphatase 99 Creatine Kinase 2466 H Total Protein 4.8 L Albumin 2.5 L Consultation Date/Type/Reason Admit Date/Time Jun 25, 2018 at 10:52 Type of Consult Neurology Reason for Consultation ams Date/Time of Note DATE: 07/02/18 TIME: 13:55 24 HR Interval Summary Free Text/Dictation Continues critical care. Reportedly tapering off propofol to switch to precedex. No acute events or changes in pt condition noted. Subjective hx not possible: pt non-verbal, pt critical status Exam Vital Signs Vitals Vital Signs Date Temp Pulse Resp B/P (MAP) Pulse Ox O2 O2 Flow FiO2 Time Delivery Rate 07/02/18 97 08:00 07/02/18 23 108/60 98 Mechanical 07:00 (76) Ventilator 07/02/18 30 05:53 07/02/18 99.3 04:00 Intake and Output 07/01/18 07/01/18 07/02/18 1515:00 23:00 07:00 IntakeIntake Total 1294.7 ml 1646.046 ml 1373.736 ml OutputOutput Total 1250 ml 1595 ml 1650 ml BalanceBalance 44.7 ml 51.046 ml -276.264 ml Exam PE: Gen Appearance: No Apparent Distress HEENT: Intubated Cardiovascular: Regular rate Abdomen: Soft Extremities: Dry NE: The patient was obtunded and nonverbal. Did not open eyes or grimace to noxious stimuli. Cranial nerve examination was limited by mental status. Pupils were equal and reactive to light. There was no afferent pupillary defect. Funduscopic examination was limited. Face was grossly symmetric, w/ present corneal and cough reflexes. Tone was normal. Muscle bulk was normal. I did not see fasciculations. The patient was minimally moving his extremities spontaneously. Coordination and gait testing was limited by mental status. Arm and leg reflexes were within normal limits and symmetric. Milian's sign was absent. Plantar responses were flexor. KM CH NP Jul 02, 2018 13:57 EUGENIA VILLEGAS Jul 02, 2018 18:46
[2018-07-02] MEDS: DEXMEDETOMIDINE HCL 200 MCG in SOD CHLORIDE 0.9% 48 ML IV SCH ×2 (14:05→18:29)
--- NOTE | 2018-07-02 18:57 | NUR ---
Vancomycin per Rx Vancomycin trough = 15.8 SCr 0.99 Continue Vancomycin 1.5 gm IV q12h
--- NOTE | 2018-07-02 19:45 | NUR ---
Report given to oncoming nurse. VSS
[2018-07-03] VITALS (36 sets, daily range): BP systolic 84–133; BP diastolic 49–99; PULSE 70–88; RESP 8–30
[2018-07-03] MEDS: PROPOFOL 100 ML IV SCH (00:26)
[2018-07-03] MEDS: FENTAnyl (DRIP) 1000 mcg/100mL 100 ML IV SCH ×2 (01:55→10:09)
[2018-07-03] MEDS: MIDAZOLAM (DRIP) 50 mg/50 mL 50 ML IV SCH ×2 (02:14→07:54)
[2018-07-03] MEDS: DEXMEDETOMIDINE HCL 200 MCG in SOD CHLORIDE 0.9% 48 ML IV SCH ×4 (04:41→13:27)
[2018-07-03] MEDS: PANTOPRAZOLE 40 MG INJ IV SCH ×2 (06:05→17:13)
[2018-07-03] MEDS: PIPER-TAZO 3.375 GM IV (PMX) 100 ML IVPB SCH ×3 (06:05→20:54)
[2018-07-03] MEDS: VANCOMYCIN 1.5 GM in SOD CHLORIDE 0.9% 250 ML IVPB SCH (06:40)
--- NOTE | 2018-07-03 07:38 | NUR ---
EOSS Pt remains intubated/sedated. Propofol reduced to 20mcg, Presidex increased to 0.7. Pt continues to become agitated when sedation lowered or paused, will attempt to move arms and will kick legs up. Pt HR and BP remained WNL, SpO2 remained >92% Pt continued to have moderate amount of secretions. Potter remains patent. Tolerating tube feeds. pt turned q2h. Bedside report given to chantell GILES
--- NOTE | 2018-07-03 07:43 | PN ---
Date/Time of Note Date/Time of Note DATE: 07/03/18 TIME: 07:43 Assessment/Plan VTE Prophylaxis Risk score (from Ns)>0 risk: 10 SCD applied (from Ns): Yes Pharmacological prophylaxis: other Lines/Catheters [facility] Central line still needed: Yes Urinary Cath still in place: Yes Reason Cath still needed: urinary retention Assessment/Plan Hospital Course renal follow up SUBJECTIVE: The patient remains critically ill on full ventilatory support. No other acute events noted. No hemoptysis, hematemesis, hematochezia. OBJECTIVE: HEENT: Head is normocephalic. NECK: Supple. HEART: Regular rate. LUNGS: Show diminished breath sounds at the base. ABDOMEN: Soft, nontender to palpation without rebound or guarding. EXTREMITIES: Negative for clubbing, cyanosis. Trace edema. DERMATOLOGIC: No rashes. MUSCULOSKELETAL: No joint effusion. NEUROLOGIC: No change in exam. MEDICATIONS: Reviewed. IMAGING STUDIES: Have been reviewed. ASSESSMENT AND PLAN: 1. Nonoliguric acute kidney injury with unknown baseline creatinine. Etiology secondary to acute tubular necrosis due to associated acute kidney injury from rhabdomyolysis, shock, nephrotoxicity. The patient is in recovery phase of acute tubular necrosis diuretic phase. Renal functions have improved. Continue to monitor electrolytes. Continue supportive care, renally dose all meds. 2. Rhabdomyolysis. CK levels are markedly improved. Continue to monitor. 3. Mineral bone disorder, monitor calcium and phosphorus levels. 4. Anemia. Monitor hemoglobin and hematocrit levels. 5. Volume overload. Patient is making good urinary output. Will give intermittent diuretic therapy as needed. 6. Hypernatremia. We will increase free water flushes 300 mL q.4h. 7. Ventilator-dependent respiratory failure. Vent settings and ABG reviewed. Continue to monitor. 8. Sepsis secondary to pneumonia. Continue current antibiotic regimen. 9. Acute encephalopathy, etiology is multifactorial. Continue to monitor. 10. Cardiomyopathy with ejection fraction 40%. 11. Polysubstance abuse. Continue to monitor. 12. Nutrition/dysphagia. Continue tube feeding. Result Diagram: 07/03/18 0415 07/03/18 0424 Results 24hrs Laboratory Tests Test 07/02/18 16:52 07/03/18 04:15 07/03/18 04:24 Vancomycin Level Trough 15.8 White Blood Count 10.1 Red Blood Count 3.09 L Hemoglobin 9.7 L Hematocrit 28.2 L Mean Corpuscular Volume 91.3 Mean Corpuscular Hemoglobin 31.4 Mean Corpuscular 34.4 Hemoglobin Concent Red Cell Distribution Width 13.2 Platelet Count 330 # Mean Platelet Volume 10.0 Immature Granulocytes % 1.700 H Neutrophils % 59.5 Lymphocytes % 20.8 Monocytes % 9.5 Eosinophils % 7.7 H Basophils % 0.8 Nucleated Red Blood Cells % 0.0 Immature Granulocytes # 0.170 H Neutrophils # 6.0 Lymphocytes # 2.1 Monocytes # 1.0 H Eosinophils # 0.8 H Basophils # 0.1 Nucleated Red Blood Cells # 0.0 Sodium Level 144 Potassium Level 3.7 Chloride Level 108 Carbon Dioxide Level 33 H Anion Gap 3 L Blood Urea Nitrogen 21 H Creatinine 1.06 Est Glomerular Filtrat > 60 Rate mL/min Glucose Level 113 Calcium Level 8.5 Phosphorus Level 4.6 Magnesium Level 1.9 Creatine Kinase 1377 H Exam/Review of Systems Vital Signs Vitals Vital Signs Date Temp Pulse Resp B/P (MAP) Pulse Ox O2 O2 Flow FiO2 Time Delivery Rate 07/03/18 73 13 99/57 (71) 98 Mechanical 07:00 Ventilator 07/03/18 30 05:00 07/03/18 99.7 04:00 Intake and Output 07/02/18 07/02/18 07/03/18 1515:00 23:00 07:00 IntakeIntake Total 1594.6 ml 1520.069 ml 937.3273 ml OutputOutput Total 2370 ml 3215 ml 400 ml BalanceBalance -775.4 ml -1694.931 ml 537.3273 ml Medications Medications Current Medications Ondansetron HCl (Zofran Inj) 4 mg Q6H PRN IV NAUSEA AND/OR VOMITING; Start 06/25/18 at 14:00 Albuterol (Proventil 0.083% (Neb)) 2.5 mg Q2H RESP THERAPY PRN NEB SHORTNESS OF BREATH; Start 06/25/18 at 14:00 Acetaminophen (Tylenol Supp) 650 mg Q4H PRN [place] PAIN LEVEL 1-3 OR FEVER Last administered on 06/26/18at 04:00; Admin Dose 650 MG; Start 06/25/18 at 14:00 Piperacillin Sod/ Tazobactam Sod 100 ml @ 200 mls/hr Q8 IVPB Last administered on 07/03/18 06:05; Admin Dose 200 MLS/HR; Start 06/25/18 at 14:00 Fentanyl 100 ml @ 2.5 mls/hr TITRATE IV Last administered on 07/03/18at 01:55; Admin Dose 10 MLS/HR; Start 06/25/18 at 17:30 Midazolam HCl 50 ml @ 1 mls/hr TITRATE IV Last administered on 07/03/18at 02:14; Admin Dose 10 MLS/HR; Start 06/25/18 at 23:00 Levofloxacin/ Dextrose 50 ml @ 50 mls/hr Q24H IVPB Last administered on 07/02/18 09:16; Admin Dose 50 MLS/HR; Start 06/26/18 at 09:00 Pantoprazole (Protonix Iv) 40 mg BID@,18 IV Last administered on 07/03/18 06:05; Admin Dose 40 MG; Start 06/26/18 at 18:00 Acetaminophen (Tylenol Liquid) 650 mg Q4H PRN GTB MILD PAIN(1-3)OR ELEVATED TEMP Last administered on 06/29/18at 01:42; Admin Dose 650 MG; Start 06/27/18 at 01:30 Propofol 100 ml @ 2.757 mls/ hr Q12H IV Last administered on 07/03/18 00:26; Admin Dose 13.7853 MLS/HR; Start 06/27/18 at 22:00 IV Flush (NS 10 ml) 10 ml PRN PRN IV FLUSH LINE; Start 06/28/18 at 13:00 Heparin Sodium (Porcine) (Heparin (5000 Units/1ml)) 5,000 unit BID SC Last administered on 07/02/18at 21:37; Admin Dose 5,000 UNIT; Start 06/28/18 at 21:00 Vancomycin HCl (Vanco Iv Per Pharmacy) VANCOMYCIN PER PHARMACY PER PROTOCOL XX ; Start 06/28/18 at 15:00 Aspirin (Aspirin) 81 mg DAILY NGT Last administered on 07/02/18 09:16; Admin Dose 81 MG; Start 06/28/18 at 16:30 Vancomycin HCl 1.5 gm/Sodium Chloride 250 ml @ 83.333 mls/ hr Q12H IVPB Last administered on 12/29/18at 06:40; Admin Dose 83.333 MLS/HR; Start 07/01/18 at 06:00 Lorazepam (Ativan) 1 mg Q2H PRN GTB ANXIETY; Start 07/01/18 at 10:30 Chlordiazepoxide (Librium) 25 mg TID PO Last administered on 07/02/18at 21:37; Admin Dose 25 MG; Start 07/02/18 at 09:00; Stop 07/05/18 at 08:59 Dexmedetomidine HCl 200 mcg/ Sodium Chloride 50 ml @ 4.6 mls/hr TITRATE IV Last administered on 07/03/18at 04:41; Admin Dose 11.49 MLS/HR; Start 07/02/18 at 13:30 Furosemide (Lasix) 40 mg DAILY IV Last administered on 07/02/18at 13:32; Admin Dose 40 MG; Start 07/02/18 at 12:00 MINESH BANEGAS DO Jul 03, 2018 07:43
[2018-07-03] MEDS: LEVOFLOXACIN 250MG/D5W (PMX) 50 ML IVPB SCH (08:26)
[2018-07-03] MEDS: FUROSEMIDE 40 MG INJ IV SCH (08:27)
[2018-07-03] MEDS: CHLORDIAZEPOXIDE 25 MG CAP PO SCH ×3 (08:27→20:53)
[2018-07-03] MEDS: ASPIRIN 81 MG TAB NGT SCH (08:27)
[2018-07-03] MEDS: HEPARIN 5,000 UNIT/1 ML VIAL SC SCH ×2 (08:28→20:58)
--- NOTE | 2018-07-03 09:41 | NUR ---
CPAP trial started at 42.
--- NOTE | 2018-07-03 09:46 | CONS ---
Date/Time of Note Date/Time of Note DATE: 07/03/18 TIME: 09:44 Assessment/Plan Assessment/Plan Hospital Course ID PROGRESS NOTE CURRENT ABX: DAY # 8 => Vanco IV + Zosyn + Levaquin 07/03/185 07/03/18 0424 24H INTERVAL SUMMARY * Extubated today on O2 via NC, awake, alert, anxious -- restless "I want to go home today" = confused * 07/03/18 CXR: 1. ET tube and NG tube in satisfactory position. Right-sided PICC line in satisfactory position.2. Diffuse bilateral interstitial infiltrates; edema versus pneumonia.3. Cardiomegaly and mild central pulmonary vascular congestion. * Renal fx improved -- monitor while on ABX combo * Indwelling: Endotracheal tube NG tube, Potter catheter right upper extremity PICC line 06/28/18 MICRO * 07/01/18 BCx (-) * 06/28/18 Respiratory Cx (-) * 06/28/18 BCx (-) * 06/27/18 (-) MRSA * 06/28/18 BCX (-) * 06/25/18 BCx (-) * 06/25/18 C.Diff (-) * 06/25/18 Urine Cx URINE CULTURE Final Organism 1 ENTEROCOCCUS SPECIES COLONY COUNT <10,000 CFU/ml ENT SPS M.I.C. RX --------- --- AMPICILLIN <=2 S CIPROFLOXACIN <=0.5 S LEVOFLOXACIN 1 S NITROFURANTOIN <=16 S PENICILLIN-G 2 S VANCOMYCIN 1 S PHYSICAL EXAMINATION: GENERAL: Afebrile, VSS, Awake, responsive, confused, anxious HEENT: AT, NC, anicteric = moist membranes NECK: Supple, trach CHEST: Equal chest rise bilaterally, without dyspnea on observation HEART: Pulse RRR ABDOMEN: Soft / NT /obese EXTREMITIES: Warm, dry, (+)generalized edema x 4 SKIN: No rash, no diaphoresis ID ASSESSMENT 37 yo M admit with: 1. Sepsis secondary to bilateral pneumonia, possibly aspiration 2. Respiratory failure 3. Enterococcal UTI 4. Acute kidney failure/rhabdomyolysis 5. Acute encephalopathy, status post drug overdose 6. Transaminitis, likely shock liver 7. Non-ST elevation [place] 8. Polysubstance abuse (-)MRSA Nares ABX ALLERGIES: NKDA INVASIVES: PICC12/24/18, ETT, NGT, FC CURRENT ABX: DAY #8 => Vanco IV + Zosyn + Levaquin ID RECOMMENDATIONS/PLAN: Continue current ABX overnight => If he is stable post extubation without aspiration will De-Escalate ABX tomorrow Renal fx improved -- monitor while on ABX combo . . Result Diagram: 07/03/18 0415 07/03/18 0424 Results 24hrs Laboratory Tests Test 07/02/18 16:52 07/03/18 04:15 07/03/18 04:24 07/03/18 07:00 Vancomycin 15.8 Level Trough White Blood 10.1 Count Red Blood Count 3.09 L Hemoglobin 9.7 L Hematocrit 28.2 L Mean 91.3 Corpuscular Volume Mean 31.4 Corpuscular Hemoglobin Mean 34.4 Corpuscular Hemoglobin Conc ent Red Cell 13.2 Distribution Width Platelet Count 330 # Mean Platelet 10.0 Volume Immature 1.700 H Granulocytes % Neutrophils % 59.5 Lymphocytes % 20.8 Monocytes % 9.5 Eosinophils % 7.7 H Basophils % 0.8 Nucleated Red 0.0 Blood Cells % Immature 0.170 H Granulocytes # Neutrophils # 6.0 Lymphocytes # 2.1 Monocytes # 1.0 H Eosinophils # 0.8 H Basophils # 0.1 Nucleated Red 0.0 Blood Cells # Sodium Level 144 Potassium Level 3.7 Chloride Level 108 Carbon Dioxide 33 H Level Anion Gap 3 L Blood Urea 21 H Nitrogen Creatinine 1.06 Est Glomerular > 60 Filtrat Rate mL/min Glucose Level 113 Calcium Level 8.5 Phosphorus 4.6 Level Magnesium Level 1.9 Creatine Kinase 1377 H Blood Gas Blood arterial Specimen Source Arterial Blood 07/03/2018 7:59 Date Drawn :25 AM Arterial Blood 7.430 pH (Temp corrected ) Arterial Blood 47.1 H pCO2 (Temp correct) Arterial Blood 93.2 pO2 (Temp corrected ) Arterial Blood 30.6 H HCO3 Arterial Blood 5.5 H Base Excess Arterial Blood 96.7 Oxygen Saturati on Reynaldo Test ACCEPTAB Arterial Blood Right Radial Gas Puncture Site Arterial 0.3 Blood Carboxyhe moglobin Arterial Blood 0.2 Methemoglobin Blood Gas A-a 65.4 H O2 Differential Oxyhemoglobin 96.2 Percent Blood Gas 37.0 Temperature Blood Gas 18.0 Respiration Rate Blood Gas 19 Actual Respiration Rat e Blood Gas VENT - AC Modality FiO2 30.0 Blood Gas Tidal 500.0 Volume Blood Gas Low 5.0 PEEP Setting Blood Gas dt Notified Whom Blood Gas 07/03/2018 8:13 Notified Time :07 AM Consultation Date/Type/Reason Admit Date/Time Jun 25, 2018 at 10:52 Initial Consult Date 06/26/18 Exam/Review of Systems Vital Signs Vitals Vital Signs Date Temp Pulse Resp B/P (MAP) Pulse Ox O2 O2 Flow FiO2 Time Delivery Rate 07/03/18 72 08:00 07/03/18 30 08:00 07/03/18 13 99/57 (71) 98 Mechanical 07:00 Ventilator 07/03/18 99.7 04:00 Intake and Output 07/02/18 07/02/18 07/03/18 1515:00 23:00 07:00 IntakeIntake Total 1594.6 ml 1520.069 ml 937.3273 ml OutputOutput Total 2370 ml 3215 ml 400 ml BalanceBalance -775.4 ml -1694.931 ml 537.3273 ml Medications Medications Current Medications Ondansetron HCl (Zofran Inj) 4 mg Q6H PRN IV NAUSEA AND/OR VOMITING; Start 06/25/18 at 14:00 Albuterol (Proventil 0.083% (Neb)) 2.5 mg Q2H RESP THERAPY PRN NEB SHORTNESS OF BREATH; Start 06/25/18 at 14:00 Acetaminophen (Tylenol Supp) 650 mg Q4H PRN OR PAIN LEVEL 1-3 OR FEVER Last administered on 06/26/18at 04:00; Admin Dose 650 MG; Start 06/25/18 at 14:00 Piperacillin Sod/ Tazobactam Sod 100 ml @ 200 mls/hr Q8 IVPB Last administered on 07/03/18at 06:05; Admin Dose 200 MLS/HR; Start 06/25/18 at 14:00 Fentanyl 100 ml @ 2.5 mls/hr TITRATE IV Last administered on 07/03/18at 01:55; Admin Dose 10 MLS/HR; Start 06/25/18 at 17:30 Midazolam HCl 50 ml @ 1 mls/hr TITRATE IV Last administered on 07/03/18at 07:54; Admin Dose 10 MLS/HR; Start 06/25/18 at 23:00 Levofloxacin/ Dextrose 50 ml @ 50 mls/hr Q24H IVPB Last administered on 07/03/18at 08:26; Admin Dose 50 MLS/HR; Start 06/26/18 at 09:00 Pantoprazole (Protonix Iv) 40 mg BID@06,18 IV Last administered on 07/03/18at 06:05; Admin Dose 40 MG; Start 06/26/18 at 18:00 Acetaminophen (Tylenol Liquid) 650 mg Q4H PRN GTB MILD PAIN(1-3)OR ELEVATED TEMP Last administered on 06/29/18at 01:42; Admin Dose 650 MG; Start 06/27/18 at 01:30 Propofol 100 ml @ 2.757 mls/ hr Q12H IV Last administered on 07/03/18at 00:26; Admin Dose 13.7853 MLS/HR; Start 06/27/18 at 22:00 IV Flush (NS 10 ml) 10 ml PRN PRN IV FLUSH LINE; Start 06/28/18 at 13:00 Heparin Sodium (Porcine) (Heparin (5000 Units/1ml)) 5,000 unit BID SC Last administered on 07/03/18at 08:28; Admin Dose 5,000 UNIT; Start 06/28/18 at 21:00 Vancomycin HCl (Vanco Iv Per Pharmacy) VANCOMYCIN PER PHARMACY PER PROTOCOL XX ; Start 06/28/18 at 15:00 Aspirin (Aspirin) 81 mg DAILY NGT Last administered on 07/03/18at 08:27; Admin Dose 81 MG; Start 06/28/18 at 16:30 Vancomycin HCl 1.5 gm/Sodium Chloride 250 ml @ 83.333 mls/ hr Q12H IVPB Last administered on 07/03/18at 06:40; Admin Dose 83.333 MLS/HR; Start 07/01/18 at 06:00 Lorazepam (Ativan) 1 mg Q2H PRN GTB ANXIETY; Start 07/01/18 at 10:30 Chlordiazepoxide (Librium) 25 mg TID PO Last administered on 07/03/18at 08:27; Admin Dose 25 MG; Start 07/02/18 at 09:00; Stop 07/05/18 at 08:59 Dexmedetomidine HCl 200 mcg/ Sodium Chloride 50 ml @ 4.6 mls/hr TITRATE IV Las t administered on 07/03/18at 08:26; Admin Dose 22.98 MLS/HR; Start 07/02/18 at 13:30 Furosemide (Lasix) 40 mg DAILY IV Last administered on 07/03/18at 08:27; Admin Dose 40 MG; Start 07/02/18 at 12:00 ARMAND ROBERTSON NP Jul 03, 2018 09:46
--- NOTE | 2018-07-03 11:00 | NUR ---
Pt. extubated and placed on 2L NC. VSS.
--- NOTE | 2018-07-03 11:14 | CONS ---
Date/Time of Note Date/Time of Note DATE: 07/03/18 TIME: 11:09 Consult Date/Type/Reason Admit Date/Time Jun 25, 2018 at 10:52 Initial Consult Date 06/26/18 Type of Consultation: Pulmonary ICU Subjective On CPAP/PS since 9 am. Awake and alert on precedex gtt. Objective Vital Signs Date Temp Pulse Resp B/P (MAP) Pulse Ox O2 O2 Flow FiO2 Time Delivery Rate 07/03/18 83 20 116/73 100 Mechanical 10:00 (87) Ventilator 07/03/18 30 08:00 07/03/18 99.5 08:00 Intake and Output 07/02/18 07/02/18 07/03/18 1515:00 23:00 07:00 IntakeIntake Total 1594.6 ml 1520.069 ml 937.3273 ml OutputOutput Total 2370 ml 3215 ml 400 ml BalanceBalance -775.4 ml -1694.931 ml 537.3273 ml Exam HEENT: Neck supple; no JVD; no LAD, + JVD CVS: RRR, S1 and S2 CHEST: Basilar rales ABD: Soft, NT, + BS EXT: ++ edema NEURO: Awake and alert. Moves all 4 extremities Results/Medications Result Diagram: 07/03/18 0415 07/03/18 0424 Results 24 hrs Laboratory Tests Test 07/02/18 16:52 07/03/18 04:15 07/03/18 04:24 07/03/18 07:00 Vancomycin 15.8 Level Trough White Blood 10.1 Count Red Blood Count 3.09 L Hemoglobin 9.7 L Hematocrit 28.2 L Mean 91.3 Corpuscular Volume Mean 31.4 Corpuscular Hemoglobin Mean 34.4 Corpuscular Hemoglobin Conc ent Red Cell 13.2 Distribution Width Platelet Count 330 # Mean Platelet 10.0 Volume Immature 1.700 H Granulocytes % Neutrophils % 59.5 Lymphocytes % 20.8 Monocytes % 9.5 Eosinophils % 7.7 H Basophils % 0.8 Nucleated Red 0.0 Blood Cells % Immature 0.170 H Granulocytes # Neutrophils # 6.0 Lymphocytes # 2.1 Monocytes # 1.0 H Eosinophils # 0.8 H Basophils # 0.1 Nucleated Red 0.0 Blood Cells # Sodium Level 144 Potassium Level 3.7 Chloride Level 108 Carbon Dioxide 33 H Level Anion Gap 3 L Blood Urea 21 H Nitrogen Creatinine 1.06 Est Glomerular > 60 Filtrat Rate mL/min Glucose Level 113 Calcium Level 8.5 Phosphorus 4.6 Level Magnesium Level 1.9 Creatine Kinase 1377 H Blood Gas Blood Specimen arterial Source Arterial Blood 07/03/2018 7:5 Date Drawn 9:25 AM Arterial Blood 7.430 pH (Temp corrected ) Arterial Blood 47.1 H pCO2 (Temp correct) Arterial Blood 93.2 pO2 (Temp corrected ) Arterial Blood 30.6 H HCO3 Arterial Blood 5.5 H Base Excess Arterial Blood 96.7 Oxygen Saturati on Reynaldo Test ACCEPTAB Arterial Blood Right Radial Gas Puncture Site Arterial 0.3 Blood Carboxyhe moglobin Arterial Blood 0.2 Methemoglobin Blood Gas A-a 65.4 H O2 Differential Oxyhemoglobin 96.2 Percent Blood Gas 37.0 Temperature Blood Gas 18.0 Respiration Rate Blood Gas 19 Actual Respiration Rat e Blood Gas VENT - AC Modality FiO2 30.0 Blood Gas Tidal 500.0 Volume Blood Gas Low 5.0 PEEP Setting Blood Gas dt Notified Whom Blood Gas 07/03/2018 8:1 Notified Time 3:07 AM Test 07/03/18 10:40 Blood Gas Blood arterial Specimen Source Arterial Blood 07/03/2018 10:3 Date Drawn 0:18 AM Arterial Blood 7.463 H pH (Temp corrected ) Arterial Blood 46.0 H pCO2 (Temp correct) Arterial Blood 68.8 L pO2 (Temp corrected ) Arterial Blood 32.2 H HCO3 Arterial Blood 7.5 H Base Excess Arterial Blood 94.5 L Oxygen Saturati on Reynaldo Test ACCEPTAB Arterial Blood Right Radial Gas Puncture Site Arterial 0.2 Blood Carboxyhe moglobin Arterial Blood 0.3 Methemoglobin Blood Gas A-a 91.1 H O2 Differential Oxyhemoglobin 94.0 Percent Blood Gas 37.0 Temperature Blood Gas 28 Actual Respiration Rat e Blood Gas VENT - CPAP Modality FiO2 30.0 Blood Gas Low 5.0 PEEP Setting Blood Gas 10 Pressure Support Blood Gas dt Notified Whom Blood Gas 06/26/2018 10:4 Notified Time 7:54 AM Medications Current Medications Ondansetron HCl (Zofran Inj) 4 mg Q6H PRN IV NAUSEA AND/OR VOMITING; Start 06/25/18 at 14:00 Albuterol (Proventil 0.083% (Neb)) 2.5 mg Q2H RESP THERAPY PRN NEB SHORTNESS OF BREATH; Start 06/25/18 at 14:00 Acetaminophen (Tylenol Supp) [address] PAIN LEVEL 1-3 OR FEVER Last administered on 06/26/18at 04:00; Admin Dose 650 MG; Start 06/25/18 at 14:00 Piperacillin Sod/ Tazobactam Sod 100 ml @ 200 mls/hr Q8 IVPB Last administered on 07/03/18at 06:05; Admin Dose 200 MLS/HR; Start 06/25/18 at 14:00 Fentanyl 100 ml @ 2.5 mls/hr TITRATE IV Last administered on 07/03/18at 10:09; Admin Dose 10 MLS/HR; Start 06/25/18 at 17:30 Midazolam HCl 50 ml @ 1 mls/hr TITRATE IV Last administered on 07/03/18at 07:54; Admin Dose 10 MLS/HR; Start 06/25/18 at 23:00 Levofloxacin/ Dextrose 50 ml @ 50 mls/hr Q24H IVPB Last administered on 07/03/18at 08:26; Admin Dose 50 MLS/HR; Start 06/26/18 at 09:00 Pantoprazole (Protonix Iv) 40 mg BID@06,18 IV Last administered on 07/03/18at 06:05; Admin Dose 40 MG; Start 06/26/18 at 18:00 Acetaminophen (Tylenol Liquid) 650 mg Q4H PRN GTB MILD PAIN(1-3)OR ELEVATED TEMP Last administered on 06/29/18at 01:42; Admin Dose 650 MG; Start 06/27/18 at 01:30 Propofol 100 ml @ 2.757 mls/ hr Q12H IV Last administered on 07/03/18at 00:26; Admin Dose 13.7853 MLS/HR; Start 06/27/18 at 22:00 IV Flush (NS 10 ml) 10 ml PRN PRN IV FLUSH LINE; Start 06/28/18 at 13:00 Heparin Sodium (Porcine) (Heparin (5000 Units/1ml)) 5,000 unit BID SC Last administered on 07/03/18at 08:28; Admin Dose 5,000 UNIT; Start 06/28/18 at 21:00 Vancomycin HCl (Vanco Iv Per Pharmacy) VANCOMYCIN PER PHARMACY PER PROTOCOL XX ; Start 06/28/18 at 15:00 Aspirin (Aspirin) 81 mg DAILY NGT Last administered on 07/03/18at 08:27; Admin Dose 81 MG; Start 06/28/18 at 16:30 Vancomycin HCl 1.5 gm/Sodium Chloride 250 ml @ 83.333 mls/ hr Q12H IVPB Last administered on 07/03/18at 06:40; Admin Dose 83.333 MLS/HR; Start 07/01/18 at 06:00 Lorazepam (Ativan) 1 mg Q2H PRN GTB ANXIETY; Start 07/01/18 at 10:30 Chlordiazepoxide (Librium) 25 mg TID PO Last administered on 07/03/18at 08:27; Admin Dose 25 MG; Start 07/02/18 at 09:00; Stop 07/05/18 at 08:59 Dexmedetomidine HCl 200 mcg/ Sodium Chloride 50 ml @ 4.6 mls/hr TITRATE IV Last administered on 07/03/18at 10:57; Admin Dose 22.98 MLS/HR; Start 07/02/18 at 13:30 Furosemide (Lasix) 40 mg DAILY IV Last administered on 07/03/18at 08:27; Admin Dose 40 MG; Start 07/02/18 at 12:00 Assessment/Plan Additional Assessment/Plan IMP: 1. Acute hypoxemic respiratory failure, possible pulmonary edema and aspiration 2. Polysubstance abuse with encephalopathy 3. Status post shock 4. Improving rhabdomyolysis 5. Cardiomyopathy 6. Transaminitis RECS: 1. Continue antibiotics 2. Diuresis 3. Follow I/O's 4. Extubate on precedex gtt 5. Use high-flow as needed 6. Initiate afterload reduction with ACEI Critical care time 40 minutes PAM FAROOQ MD Jul 03, 2018 11:14
[2018-07-03] MEDS ORDERED: FUROSEMIDE 20 MG INJ IV ONE (11:30)
--- NOTE | 2018-07-03 11:41 | CONS ---
Assessment/Plan Assessment/Plan Hospital Course Assessment/Plan A: 37 M c/ reported Hx of recreational drug abuse...who presents for evaluation of ams, after being found unconscious in his garage by his . Clinically consistent w/ an acute toxic encephalopathy.. Superimposed stroke is not yet excluded.. Seizure is unlikely.. Head CT is unrevealing. P: MRI brain without contrast for further characterization. Medical management and supportive care per primary Will follow clinically Result Diagram: 07/03/18 0415 07/03/18 0424 Results 24hrs Laboratory Tests Test 07/02/18 16:52 07/03/18 04:15 07/03/18 04:24 07/03/18 07:00 Vancomycin 15.8 Level Trough White Blood 10.1 Count Red Blood Count 3.09 L Hemoglobin 9.7 L Hematocrit 28.2 L Mean 91.3 Corpuscular Volume Mean 31.4 Corpuscular Hemoglobin Mean 34.4 Corpuscular Hemoglobin Conc ent Red Cell 13.2 Distribution Width Platelet Count 330 # Mean Platelet 10.0 Volume Immature 1.700 H Granulocytes % Neutrophils % 59.5 Lymphocytes % 20.8 Monocytes % 9.5 Eosinophils % 7.7 H Basophils % 0.8 Nucleated Red 0.0 Blood Cells % Immature 0.170 H Granulocytes # Neutrophils # 6.0 Lymphocytes # 2.1 Monocytes # 1.0 H Eosinophils # 0.8 H Basophils # 0.1 Nucleated Red 0.0 Blood Cells # Sodium Level 144 Potassium Level 3.7 Chloride Level 108 Carbon Dioxide 33 H Level Anion Gap 3 L Blood Urea 21 H Nitrogen Creatinine 1.06 Est Glomerular > 60 Filtrat Rate mL/min Glucose Level 113 Calcium Level 8.5 Phosphorus 4.6 Level Magnesium Level 1.9 Creatine Kinase 1377 H Blood Gas Blood Specimen arterial Source Arterial Blood 07/03/2018 7:5 Date Drawn 9:25 AM Arterial Blood 7.430 pH (Temp corrected ) Arterial Blood 47.1 H pCO2 (Temp correct) Arterial Blood 93.2 pO2 (Temp corrected ) Arterial Blood 30.6 H HCO3 Arterial Blood 5.5 H Base Excess Arterial Blood 96.7 Oxygen Saturati on Reynaldo Test ACCEPTAB Arterial Blood Right Radial Gas Puncture Site Arterial 0.3 Blood Carboxyhe moglobin Arterial Blood 0.2 Methemoglobin Blood Gas A-a 65.4 H O2 Differential Oxyhemoglobin 96.2 Percent Blood Gas 37.0 Temperature Blood Gas 18.0 Respiration Rate Blood Gas 19 Actual Respiration Rat e Blood Gas VENT - AC Modality FiO2 30.0 Blood Gas Tidal 500.0 Volume Blood Gas Low 5.0 PEEP Setting Blood Gas dt Notified Whom Blood Gas 07/03/2018 8:1 Notified Time 3:07 AM Test 07/03/18 10:40 Blood Gas Blood arterial Specimen Source Arterial Blood 07/03/2018 10:3 Date Drawn 0:18 AM Arterial Blood 7.463 H pH (Temp corrected ) Arterial Blood 46.0 H pCO2 (Temp correct) Arterial Blood 68.8 L pO2 (Temp corrected ) Arterial Blood 32.2 H HCO3 Arterial Blood 7.5 H Base Excess Arterial Blood 94.5 L Oxygen Saturati on Reynaldo Test ACCEPTAB Arterial Blood Right Radial Gas Puncture Site Arterial 0.2 Blood Carboxyhe moglobin Arterial Blood 0.3 Methemoglobin Blood Gas A-a 91.1 H O2 Differential Oxyhemoglobin 94.0 Percent Blood Gas 37.0 Temperature Blood Gas 28 Actual Respiration Rat e Blood Gas VENT - CPAP Modality FiO2 30.0 Blood Gas Low 5.0 PEEP Setting Blood Gas 10 Pressure Support Blood Gas dt Notified Whom Blood Gas 06/26/2018 10:4 Notified Time 7:54 AM Consultation Date/Type/Reason Admit Date/Time Jun 25, 2018 at 10:52 Type of Consult Neurology Reason for Consultation ams Date/Time of Note DATE: 07/03/18 TIME: 11:41 24 HR Interval Summary Free Text/Dictation Continues critical care. Off sedation. S/p extubation. Pt states that he wants water and wants to go home. Exam Vital Signs Vitals Vital Signs Date Temp Pulse Resp B/P (MAP) Pulse Ox O2 O2 Flow FiO2 Time Delivery Rate 07/03/18 83 20 116/73 100 Mechanical 10:00 (87) Ventilator 07/03/18 30 08:00 07/03/18 99.5 08:00 Intake and Output 07/02/18 07/02/18 07/03/18 1515:00 23:00 07:00 IntakeIntake Total 1594.6 ml 1520.069 ml 937.3273 ml OutputOutput Total 2370 ml 3215 ml 400 ml BalanceBalance -775.4 ml -1694.931 ml 537.3273 ml Exam PE: Gen Appearance: No Apparent Distress HEENT: Normocephalic Cardiovascular: Regular rate Lungs: Clear bilaterally Abdomen: Soft Extremities: Dry NE: The patient was alert and oriented to self, place, and situation. Language was normal. Fund of knowledge was normal. Pupils were equal and reactive to light. There was no afferent pupillary defect. Visual nickerson were normal. Funduscopic examination was limited. Extra-ocular movements were full. Ptosis was absent. There was no nystagmus. Facial sensation was normal. Face was symmetric with normal strength. Hearing was intact. Palate movements were normal. Neck strength was normal. There was normal tongue bulk and speed of movement. Tone was normal. Muscle bulk was normal. I did not see fasciculations. Moderate, generalized weakness noted. Vibration sensation was normal. Temperature and pinprick sensation was normal. Rapid alternating movements were normal. There was no dysmetria. There was no intention tremor. Gait was deferred due to bedrest. Arm and leg reflexes were 2+ and symmetric. Milian's sign was absent. Plantar responses were flexor. KM CH NP Jul 03, 2018 11:41 EUGENIA VILLEGAS Jul 04, 2018 07:01
--- NOTE | 2018-07-03 16:51 | PN ---
Date/Time of Note Date/Time of Note DATE: 07/03/18 TIME: 16:47 Assessment/Plan VTE Prophylaxis Risk score (from Ns)>0 risk: 10 SCD applied (from Ns): Yes Pharmacological prophylaxis: heparin Lines/Catheters IV Catheter Type (from Nrs): PICC Line Central line still needed: Yes Urinary Cath still in place: No Assessment/Plan Problems: (1) Cardiopulmonary arrest with successful resuscitation Status: Acute Comment: At this time he appears to be coming back toward baseline state. His true insight into the events that led to this while he is able to say all the correct words I am not sure at sink Oscar (2) Altered mental status Status: Acute Comment: Improved nicely. We do need to start thinking about when he can be discharged home. However he also needs to be referred for drug and alcohol rehab. He describes it that he was only trying to use cocaine Qualifiers: Altered mental status type: unspecified Qualified Codes: R41.82 - Altered mental status, unspecified (3) Substance abuse Status: Acute Comment: As above needs drug and alcohol rehab (4) Rhabdomyolysis Status: Resolved Comment: Resolved. Qualifiers: Rhabdomyolysis type: traumatic Encounter type: initial encounter Qualified Codes: T79.6XXA - Traumatic ischemia of muscle, initial encounter (5) Crutch palsy of right upper extremity Status: Resolved Comment: He is regaining the function of his right arm which is extremely fortunate. Qualifiers: Encounter type: initial encounter Qualified Codes: S14.3XXA - Injury of brachial plexus, initial encounter (6) Respiratory failure with hypoxia and hypercapnia Status: Resolved Comment: Successfully extubated. Qualifiers: Chronicity: acute Qualified Codes: J96.01 - Acute respiratory failure with hypoxia; J96.02 - Acute respiratory failure with hypercapnia (7) Acute kidney injury Status: Resolved Comment: He is extremely fortunate to have resolved this as well. Result Diagram: 07/03/18 0415 07/03/18 0424 Results 24hrs Laboratory Tests Test 07/02/18 16:52 07/03/18 04:15 07/03/18 04:24 07/03/18 07:00 Vancomycin 15.8 Level Trough White Blood 10.1 Count Red Blood Count 3.09 L Hemoglobin 9.7 L Hematocrit 28.2 L Mean 91.3 Corpuscular Volume Mean 31.4 Corpuscular Hemoglobin Mean 34.4 Corpuscular Hemoglobin Conc ent Red Cell 13.2 Distribution Width Platelet Count 330 # Mean Platelet 10.0 Volume Immature 1.700 H Granulocytes % Neutrophils % 59.5 Lymphocytes % 20.8 Monocytes % 9.5 Eosinophils % 7.7 H Basophils % 0.8 Nucleated Red 0.0 Blood Cells % Immature 0.170 H Granulocytes # Neutrophils # 6.0 Lymphocytes # 2.1 Monocytes # 1.0 H Eosinophils # 0.8 H Basophils # 0.1 Nucleated Red 0.0 Blood Cells # Sodium Level 144 Potassium Level 3.7 Chloride Level 108 Carbon Dioxide 33 H Level Anion Gap 3 L Blood Urea 21 H Nitrogen Creatinine 1.06 Est Glomerular > 60 Filtrat Rate mL/min Glucose Level 113 Calcium Level 8.5 Phosphorus 4.6 Level Magnesium Level 1.9 Creatine Kinase 1377 H Blood Gas Blood Specimen arterial Source Arterial Blood 07/03/2018 7:5 Date Drawn 9:25 AM Arterial Blood 7.430 pH (Temp corrected ) Arterial Blood 47.1 H pCO2 (Temp correct) Arterial Blood 93.2 pO2 (Temp corrected ) Arterial Blood 30.6 H HCO3 Arterial Blood 5.5 H Base Excess Arterial Blood 96.7 Oxygen Saturati on Reynaldo Test ACCEPTAB Arterial Blood Right Radial Gas Puncture Site Arterial 0.3 Blood Carboxyhe moglobin Arterial Blood 0.2 Methemoglobin Blood Gas A-a 65.4 H O2 Differential Oxyhemoglobin 96.2 Percent Blood Gas 37.0 Temperature Blood Gas 18.0 Respiration Rate Blood Gas 19 Actual Respiration Rat e Blood Gas VENT - AC Modality FiO2 30.0 Blood Gas Tidal 500.0 Volume Blood Gas Low 5.0 PEEP Setting Blood Gas dt Notified Whom Blood Gas 07/03/2018 8:1 Notified Time 3:07 AM Test 07/03/18 10:40 Blood Gas Blood arterial Specimen Source Arterial Blood 07/03/2018 10:3 Date Drawn 0:18 AM Arterial Blood 7.463 H pH (Temp corrected ) Arterial Blood 46.0 H pCO2 (Temp correct) Arterial Blood 68.8 L pO2 (Temp corrected ) Arterial Blood 32.2 H HCO3 Arterial Blood 7.5 H Base Excess Arterial Blood 94.5 L Oxygen Saturati on Reynaldo Test ACCEPTAB Arterial Blood Right Radial Gas Puncture Site Arterial 0.2 Blood Carboxyhe moglobin Arterial Blood 0.3 Methemoglobin Blood Gas A-a 91.1 H O2 Differential Oxyhemoglobin 94.0 Percent Blood Gas 37.0 Temperature Blood Gas 28 Actual Respiration Rat e Blood Gas VENT - CPAP Modality FiO2 30.0 Blood Gas Low 5.0 PEEP Setting Blood Gas 10 Pressure Support Blood Gas dt Notified Whom Blood Gas 06/26/2018 10:4 Notified Time 7:54 AM Subjective 24 Hr Interval Summary Free Text/Dictation Patient chief complaint I want to go home Constitutional: no complaints (Denies fevers chills or sweats) ENT: no complaints Respiratory: no complaints Cardiovascular: no complaints Gastrointestinal: no complaints Exam/Review of Systems Vital Signs Vitals Vital Signs Date Temp Pulse Resp B/P (MAP) Pulse Ox O2 O2 Flow FiO2 Time Delivery Rate 07/03/18 80 15 124/83 93 Nasal 2.0 15:00 (97) Cannula 07/03/18 99.2 12:00 07/03/18 30 09:10 Intake and Output 07/02/18 07/02/18 07/03/18 1515:00 23:00 07:00 IntakeIntake Total 1594.6 ml 1520.069 ml 937.3273 ml OutputOutput Total 2370 ml 3215 ml 400 ml BalanceBalance -775.4 ml -1694.931 ml 537.3273 ml Exam Constitutional: alert, oriented Neck: supple, non-tender Respiratory: clear to auscultation, normal air movement Cardiovascular: regular rate and rhythm, nl pulses Gastrointestinal: soft, nl liver, spleen, non-tender Medications Medications Current Medications Ondansetron HCl (Zofran Inj) 4 mg Q6H PRN IV NAUSEA AND/OR VOMITING Last administered on 07/03/18at 12:28; Admin Dose 4 MG; Start 06/25/18 at 14:00 Albuterol (Proventil 0.083% (Neb)) 2.5 mg Q2H RESP THERAPY PRN NEB SHORTNESS OF BREATH; Start 06/25/18 at 14:00 Acetaminophen (Tylenol Supp) 650 mg Q4H PRN [place] PAIN LEVEL 1-3 OR FEVER Last administered on 06/26/18at 04:00; Admin Dose 650 MG; Start 06/25/18 at 14:00 Piperacillin Sod/ Tazobactam Sod 100 ml @ 200 mls/hr Q8 IVPB Last administered on 07/03/18at 13:54; Admin Dose 200 MLS/HR; Start 06/25/18 at 14:00 Levofloxacin/ Dextrose 50 ml @ 50 mls/hr Q24H IVPB Last administered on 07/03/18 08:26; Admin Dose 50 MLS/HR; Start 06/26/18 at 09:00 Pantoprazole (Protonix Iv) 40 mg BID@06,18 IV Last administered on 07/03/18 06:05; Admin Dose 40 MG; Start 06/26/18 at 18:00 Acetaminophen (Tylenol Liquid) 650 mg Q4H PRN GTB MILD PAIN(1-3)OR ELEVATED TEMP Last administered on 06/29/18 01:42; Admin Dose 650 MG; Start 06/27/18 at 01:30 IV Flush (NS 10 ml) 10 ml PRN PRN IV FLUSH LINE; Start 06/28/18 at 13:00 Heparin Sodium (Porcine) (Heparin (5000 Units/1ml)) 5,000 unit BID SC Last administered on 07/03/18 08:28; Admin Dose 5,000 UNIT; Start 06/28/18 at 21:00 Aspirin (Aspirin) 81 mg DAILY NGT Last administered on 07/03/18 08:27; Admin Dose 81 MG; Start 06/28/18 at 16:30 Lorazepam (Ativan) 1 mg Q2H PRN GTB ANXIETY; Start 07/01/18 at 10:30 Chlordiazepoxide (Librium) 25 mg TID PO Last administered on 07/03/18 13:19; Admin Dose 25 MG; Start 07/02/18 at 09:00; Stop 07/05/18 at 08:59 Dexmedetomidine HCl 200 mcg/ Sodium Chloride 50 ml @ 4.6 mls/hr TITRATE IV Last administered on 07/03/18 13:27; Admin Dose 16.08 MLS/HR; Start 07/02/18 at 13:30 Furosemide (Lasix) 40 mg DAILY IV Last administered on 07/03/18 08:27; Admin Dose 40 MG; Start 07/02/18 at 12:00 GUANAKITO BUSCH MD Jul 03, 2018 16:51
[2018-07-03] MEDS: ACETAMINOPHEN 650MG/20.3ML CUP GTB PRN (17:13)
--- NOTE | 2018-07-03 17:58 | NUR ---
End of Shift Summary Pt. is A/O x 3, intermittently confused, Kwaku, no appreciable neurological deficits. NSR, normotensive. Extubated at 1100, now on room air. Clear liquid diet started, still having diarrhea likely due to tube feeding formula. Rectal tube removed per patient request. Potter catheter in place, great urine output ~ 100-200 cc/hr. Skin remains intact. Plan to observe in ICU overnight and transfer to [facility] in the a.m.
[2018-07-03] MEDS: LORAZEPAM 1 MG TAB GTB PRN (23:00)
[2018-07-04] VITALS (13 sets, daily range): BP systolic 104–131; BP diastolic 65–104; PULSE 78–96; RESP 16–31
[2018-07-04] MEDS: ACETAMINOPHEN 650MG/20.3ML CUP GTB PRN ×2 (00:43→22:16)
[2018-07-04] MEDS: PANTOPRAZOLE 40 MG INJ IV SCH (06:23)
[2018-07-04] MEDS: PIPER-TAZO 3.375 GM IV (PMX) 100 ML IVPB SCH (06:23)
--- NOTE | 2018-07-04 07:08 | PN ---
Date/Time of Note Date/Time of Note DATE: 07/04/18 TIME: 07:08 Assessment/Plan VTE Prophylaxis Risk score (from Ns)>0 risk: 8 SCD applied (from Ns): Yes Pharmacological prophylaxis: other Lines/Catheters IV Catheter Type (from Nrs): PICC Line Central line still needed: Yes Urinary Cath still in place: No Assessment/Plan Hospital Course renal follow up SUBJECTIVE: The patient remains critically ill on full ventilatory support. No other acute events noted. No hemoptysis, hematemesis, hematochezia. OBJECTIVE: HEENT: Head is normocephalic. NECK: Supple. HEART: Regular rate. LUNGS: Show diminished breath sounds at the base. ABDOMEN: Soft, nontender to palpation without rebound or guarding. EXTREMITIES: Negative for clubbing, cyanosis. Trace edema. DERMATOLOGIC: No rashes. MUSCULOSKELETAL: No joint effusion. NEUROLOGIC: No change in exam. MEDICATIONS: Reviewed. IMAGING STUDIES: Have been reviewed. ASSESSMENT AND PLAN: 1. Nonoliguric acute kidney injury with unknown baseline creatinine. Etiology secondary to acute tubular necrosis and associated acute kidney injury from rhabdomyolysis, shock, nephrotoxicity. The patient is in recovery phase of acute tubular necrosis diuretic phase. Renal functions have improved. Continue to monitor electrolytes. Continue supportive care, renally dose all meds. 2. Rhabdomyolysis. CK levels are markedly improved. Continue to monitor. 3. Mineral bone disorder, monitor calcium and phosphorus levels. 4. Anemia. Monitor hemoglobin and hematocrit levels. 5. Volume overload. Patient is making good urinary output. Will give intermittent diuretic therapy as needed. 6. Hypernatremia. continue free water flushes 7. Ventilator-dependent respiratory failure. 8. Sepsis secondary to pneumonia. Continue current antibiotic regimen. 9. Acute encephalopathy, etiology is multifactorial. Continue to monitor. 10. Cardiomyopathy with ejection fraction 40%. 11. Polysubstance abuse. Continue to monitor. 12. Nutrition/dysphagia. Continue tube feeding. Result Diagram: 07/04/18 0440 07/04/18439 Results 24hrs Laboratory Tests Test 07/03/18 10:40 07/04/18 04:30 07/04/18 04:40 07/04/18 05:00 Blood Gas Blood arterial Blood Specimen arterial Source Arterial Blood 07/03/2018 10:3 07/04/2018 5:4 Date Drawn 0:18 AM 0:01 AM Arterial Blood 7.463 H 7.556 *H pH (Temp corrected ) Arterial Blood 46.0 H 29.5 L pCO2 (Temp correct) Arterial Blood 68.8 L 106.1 H pO2 (Temp corrected ) Arterial Blood 32.2 H 25.6 HCO3 Arterial Blood 7.5 H 4.2 H Base Excess Arterial Blood 94.5 L 97.8 Oxygen Saturati on Reynaldo Test ACCEPTAB ACCEPTAB Arterial Blood Right Radial Right Radial Gas Puncture Site Arterial 0.2 0.3 Blood Carboxyhe moglobin Arterial Blood 0.3 0.3 Methemoglobin Blood Gas A-a 91.1 H 8.3 O2 Differential Oxyhemoglobin 94.0 97.2 Percent Blood Gas 37.0 37.0 Temperature Blood Gas 28 Actual Respiration Rat e Blood Gas VENT - CPAP ROOM AIR Modality FiO2 30.0 21.0 Blood Gas Low 5.0 PEEP Setting Blood Gas 10 Pressure Support Blood Gas dt MA Notified Whom Blood Gas 06/26/2018 10:4 07/04/2018 5:5 Notified Time 7:54 AM 2:55 AM Lactic Acid 1.0 Level White Blood 15.9 #H Count Red Blood Count 3.59 L Hemoglobin 11.0 L Hematocrit 31.0 L Mean 86.4 Corpuscular Volume Mean 30.6 Corpuscular Hemoglobin Mean 35.5 Corpuscular Hemoglobin Conc ent Red Cell 12.4 Distribution Width Platelet Count 396 Mean Platelet 10.3 Volume Immature 0.900 H Granulocytes % Neutrophils % 70.7 Lymphocytes % 17.5 Monocytes % 8.1 Eosinophils % 2.2 Basophils % 0.6 Nucleated Red 0.0 Blood Cells % Immature 0.150 H Granulocytes # Neutrophils # 11.2 H Lymphocytes # 2.8 Monocytes # 1.3 H Eosinophils # 0.4 Basophils # 0.1 Nucleated Red 0.0 Blood Cells # Sodium Level 144 Potassium Level 3.2 L Chloride Level 105 Carbon Dioxide 30 Level Anion Gap 9 # Blood Urea 19 Nitrogen Creatinine 1.06 Est Glomerular > 60 Filtrat Rate mL/min Glucose Level 108 Calcium Level 9.0 Total Bilirubin 0.5 Direct 0.00 Bilirubin Indirect 0.5 Bilirubin Aspartate Amino 135 H Transf (AST/SGO T) Alanine 166 H Aminotransferas e (ALT/SGPT) Alkaline 113 Phosphatase Total Protein 6.7 # Albumin 3.6 # Globulin 3.10 Albumin/Globuli 1.16 n Ratio Blood Gas RMCISCO GILES Critical Value Read Back Exam/Review of Systems Vital Signs Vitals Vital Signs Date Temp Pulse Resp B/P (MAP) Pulse Ox O2 O2 Flow FiO2 Time Delivery Rate 07/04/18 78 22 117/80 95 Room Air 06:00 (92) 07/04/18 98.5 04:00 07/04/18 2.0 03:43 07/03/18 30 09:10 Intake and Output 07/03/18 07/03/18 07/04/18 1515:00 23:00 07:00 IntakeIntake Total 1712.48 ml 533.8 ml OutputOutput Total 4000 ml 1275 ml 450 ml BalanceBalance -2287.52 ml -741.2 ml -450 ml Medications Medications Current Medications Ondansetron HCl (Zofran Inj) 4 mg Q6H PRN IV NAUSEA AND/OR VOMITING Last administered on 07/03/18at 12:28; Admin Dose 4 MG; Start 06/25/18 at 14:00 Albuterol (Proventil 0.083% (Neb)) 2.5 mg Q2H RESP THERAPY PRN NEB SHORTNESS OF BREATH; Start 06/25/18 at 14:00 Acetaminophen (Tylenol Supp) 650 mg Q4H PRN [place] PAIN LEVEL 1-3 OR FEVER Last administered on 06/26/18at 04:00; Admin Dose 650 MG; Start 06/25/18 at 14:00 Piperacillin Sod/ Tazobactam Sod 100 ml @ 200 mls/hr Q8 IVPB Last administered on 07/04/18at 06:23; Admin Dose 200 MLS/HR; Start 06/25/18 at 14:00 Levofloxacin/ Dextrose 50 ml @ 50 mls/hr Q24H IVPB Last administered on 07/03/18at 08:26; Admin Dose 50 MLS/HR; Start 06/26/18 at 09:00 Pantoprazole (Protonix Iv) 40 mg BID@06,18 IV Last administered on 07/04/18at 06:23; Admin Dose 40 MG; Start 06/26/18 at 18:00 Acetaminophen (Tylenol Liquid) 650 mg Q4H PRN GTB MILD PAIN(1-3)OR ELEVATED TEMP Last administered on 07/04/18at 00:43; Admin Dose 650 MG; Start 06/27/18 at 01:30 IV Flush (NS 10 ml) 10 ml PRN PRN IV FLUSH LINE; Start 06/28/18 at 13:00 Heparin Sodium (Porcine) (Heparin (5000 Units/1ml)) 5,000 unit BID SC Last administered on 07/03/18at 20:58; Admin Dose 5,000 UNIT; Start 06/28/18 at 21: 00 Aspirin (Aspirin) 81 mg DAILY NGT Last administered on 07/03/18 08:27; Admin Dose 81 MG; Start 06/28/18 at 16:30 Lorazepam (Ativan) 1 mg Q2H PRN GTB ANXIETY Last administered on 07/03/18 23: 00; Admin Dose 1 MG; Start 07/01/18 at 10:30 Chlordiazepoxide (Librium) 25 mg TID PO Last administered on 07/03/18at 20:53; Admin Dose 25 MG; Start 07/02/18 at 09:00; Stop 07/05/18 at 08:59 Dexmedetomidine HCl 200 mcg/ Sodium Chloride 50 ml @ 4.6 mls/hr TITRATE IV Last administered on 07/03/18 13:27; Admin Dose 16.08 MLS/HR; Start 07/02/18 at 13:30 Furosemide (Lasix) 40 mg DAILY IV Last administered on 07/03/18 08:27; Admin Dose 40 MG; Start 07/02/18 at 12:00 MINESH BANEGAS DO Jul 04, 2018 07:08
[2018-07-04] MEDS ORDERED: POTASSIUM CHLORIDE (SR) 20 MEQ TAB PO STA (08:51)
--- NOTE | 2018-07-04 09:08 | PN ---
Date/Time of Note Date/Time of Note DATE: 07/04/18 TIME: 09:05 Assessment/Plan VTE Prophylaxis Risk score (from Ns)>0 risk: 8 SCD applied (from Ns): Yes SCD contraindicated: low risk/ambulating Pharmacological prophylaxis: LMWH Lines/Catheters IV Catheter Type (from Nrs): PICC Line Central line still needed: No Urinary Cath still in place: No Assessment/Plan Problems: (1) Acute hypokalemia Status: Acute Comment: Replace potassium. (2) Cardiopulmonary arrest with successful resuscitation Status: Acute Comment: Successful resuscitation. Okay to transfer to floor with plan for discharge tomorrow. (3) Substance abuse Status: Acute Comment: He has been clean and sober in the hospital although some of his visitors according the nurses may not be quite as successful. I believe he is at high risk for recurrence of drugs. Social work will review with him again about rehabilitation. (4) Acute kidney injury Status: Resolved Comment: Fully resolved. Nephrology can sign off case (5) Pneumonia Status: Acute Comment: Clearing nicely. Allow antibiotics to finish which will be today Qualifiers: Pneumonia type: due to unspecified organism Laterality: bilateral Lung location: upper lobe of lung Qualified Codes: J18.1 - Lobar pneumonia, unspecified organism Result Diagram: 07/04/18 0440 07/04/18 0440 Results 24hrs Laboratory Tests Test 07/03/18 10:40 07/04/18 04:30 07/04/18 04:40 07/04/18 05:00 Blood Gas Blood arterial Blood Specimen arterial Source Arterial Blood 07/03/2018 10:3 07/04/2018 5:4 Date Drawn 0:18 AM 0:01 AM Arterial Blood 7.463 H 7.556 *H pH (Temp corrected ) Arterial Blood 46.0 H 29.5 L pCO2 (Temp correct) Arterial Blood 68.8 L 106.1 H pO2 (Temp corrected ) Arterial Blood 32.2 H 25.6 HCO3 Arterial Blood 7.5 H 4.2 H Base Excess Arterial Blood 94.5 L 97.8 Oxygen Saturati on Reynaldo Test ACCEPTAB ACCEPTAB Arterial Blood Right Radial Right Radial Gas Puncture Site Arterial 0.2 0.3 Blood Carboxyhe moglobin Arterial Blood 0.3 0.3 Methemoglobin Blood Gas A-a 91.1 H 8.3 O2 Differential Oxyhemoglobin 94.0 97.2 Percent Blood Gas 37.0 37.0 Temperature Blood Gas 28 Actual Respiration Rat e Blood Gas VENT - CPAP ROOM AIR Modality FiO2 30.0 21.0 Blood Gas Low 5.0 PEEP Setting Blood Gas 10 Pressure Support Blood Gas dt [place] Notified Whom Blood Gas 06/26/2018 10:4 07/04/2018 5:5 Notified Time 7:54 AM 2:55 AM Lactic Acid 1.0 Level White Blood 15.9 #H Count Red Blood Count 3.59 L Hemoglobin 11.0 L Hematocrit 31.0 L Mean 86.4 Corpuscular Volume Mean 30.6 Corpuscular Hemoglobin Mean 35.5 Corpuscular Hemoglobin Conc ent Red Cell 12.4 Distribution Width Platelet Count 396 Mean Platelet 10.3 Volume Immature 0.900 H Granulocytes % Neutrophils % 70.7 Lymphocytes % 17.5 Monocytes % 8.1 Eosinophils % 2.2 Basophils % 0.6 Nucleated Red 0.0 Blood Cells % Immature 0.150 H Granulocytes # Neutrophils # 11.2 H Lymphocytes # 2.8 Monocytes # 1.3 H Eosinophils # 0.4 Basophils # 0.1 Nucleated Red 0.0 Blood Cells # Sodium Level 144 Potassium Level 3.2 L Chloride Level 105 Carbon Dioxide 30 Level Anion Gap 9 # Blood Urea 19 Nitrogen Creatinine 1.06 Est Glomerular > 60 Filtrat Rate mL/min Glucose Level 108 Calcium Level 9.0 Total Bilirubin 0.5 Direct 0.00 Bilirubin Indirect 0.5 Bilirubin Aspartate Amino 135 H Transf (AST/SGO T) Alanine 166 H Aminotransferas e (ALT/SGPT) Alkaline 113 Phosphatase Total Protein 6.7 # Albumin 3.6 # Globulin 3.10 Albumin/Globuli 1.16 n Ratio Blood Gas CINTYRE RN Critical Value Read Back Subjective 24 Hr Interval Summary Free Text/Dictation Patient reports he is doing well and wants to move out of the ICU and actually would like to go home. Constitutional: no complaints Respiratory: no complaints Cardiovascular: no complaints Gastrointestinal: no complaints Genitourinary: no complaints Exam/Review of Systems Vital Signs Vitals Vital Signs Date Temp Pulse Resp B/P (MAP) Pulse Ox O2 O2 Flow FiO2 Time Delivery Rate 07/04/18 83 08:09 07/04/18 22 117/80 95 Room Air 06:00 (92) 07/04/18 98.5 04:00 07/04/18 2.0 03:43 07/03/18 30 09:10 Intake and Output 07/03/18 07/03/18 07/04/18 1515:00 23:00 07:00 IntakeIntake Total 1712.48 ml 533.8 ml OutputOutput Total 4000 ml 1275 ml 450 ml BalanceBalance -2287.52 ml -741.2 ml -450 ml Exam Constitutional: alert, oriented Respiratory: clear to auscultation, normal air movement Cardiovascular: regular rate and rhythm, nl pulses Gastrointestinal: soft, nl liver, spleen, non-tender Medications Medications Current Medications Albuterol (Proventil 0.083% (Neb)) 2.5 mg Q2H RESP THERAPY PRN NEB SHORTNESS OF BREATH; Start 06/25/18 at 14:00 Acetaminophen (Tylenol Supp) 650 mg Q4H PRN [place] PAIN LEVEL 1-3 OR FEVER Last administered on 06/26/18at 04:00; Admin Dose 650 MG; Start 06/25/18 at 14:00 Piperacillin Sod/ Tazobactam Sod 100 ml @ 200 mls/hr Q8 IVPB Last administered on 07/04/18at 06:23; Admin Dose 200 MLS/HR; Start 06/25/18 at 14:00; Stop 07/04/18 at 13:59 Acetaminophen (Tylenol Liquid) 650 mg Q4H PRN GTB MILD PAIN(1-3)OR ELEVATED TEMP Last administered on 07/04/18at 00:43; Admin Dose 650 MG; Start 06/27/18 at 01:30 IV Flush (NS 10 ml) 10 ml PRN PRN IV FLUSH LINE; Start 06/28/18 at 13:00 Heparin Sodium (Porcine) (Heparin (5000 Units/1ml)) 5,000 unit BID SC Last administered on 07/03/18at 20:58; Admin Dose 5,000 UNIT; Start 06/28/18 at 21:00 Aspirin (Aspirin) 81 mg DAILY NGT Last administered on 07/03/18at 08:27; Admin Dose 81 MG; Start 06/28/18 at 16:30 Lorazepam (Ativan) 1 mg Q2H PRN GTB ANXIETY Last administered on 07/03/18at 23:00; Admin Dose 1 MG; Start 07/01/18 at 10:30 Chlordiazepoxide (Librium) 25 mg TID PO Last administered on 07/03/18at 20:53; Admin Dose 25 MG; Start 07/02/18 at 09:00; Stop 07/05/18 at 08:59 Dexmedetomidine HCl 200 mcg/ Sodium Chloride 50 ml @ 4.6 mls/hr TITRATE IV Last administered on 07/03/18at 13:27; Admin Dose 16.08 MLS/HR; Start 07/02/18 at 13:30 Potassium Chloride (Klor-Con 20) 40 meq ONCE STAT PO ; Start 07/04/18 at 08:51; Stop 07/04/18 at 08:52; Status UNV Pantoprazole (Protonix Tab) 40 mg DAILY@06 PO ; Start 07/05/18 at 06:00; Status UNV GUANAKITO BUSCH MD Jul 04, 2018 09:07
[2018-07-04] MEDS: ASPIRIN 81 MG TAB NGT SCH (09:19)
[2018-07-04] MEDS: CHLORDIAZEPOXIDE 25 MG CAP PO SCH ×3 (09:19→22:05)
[2018-07-04] MEDS: HEPARIN 5,000 UNIT/1 ML VIAL SC SCH ×2 (09:23→20:46)
[2018-07-04] MEDS ORDERED: HEPARIN 1000 UNITS/ML 10 ML INJ ONE (10:43)
--- NOTE | 2018-07-04 12:10 | NUR ---
SS Note: SS Consult Pt's a 37 y/o male presenting w/ AMS and h/o substance abuse. Pt;s A/OX4, ambulatory and resting quietly in bed, lives alone, makes own medical decisions and contracts for safety. Pt's gainfully employed, drives a car and denies having an AD, DPOA, HH, IHSS, currently using a walker to ambulate per PT's request. Pt admits to snorting heroin and fentanyl as he was of the impression it was cocaine. Pt states his drug of choice is cocaine and he usually snorts several grams wkly. Pt requested assistance w/ enrolling into a tx ctr as he would like to see his kids grow up. SWer provided supportive listening and agreed to assist pt w/ enrolling into a tx program. Pt's spouse, Nona Pruett , is supportive of pt's recovery and is available to transport pt home/to rehab if necessary. Pt's coping adequately w/ tx's, DCP pending status, SWer will remain available for f/u and assistance as needed. CM aware
--- NOTE | 2018-07-04 13:22 | CONS ---
Date/Time of Note Date/Time of Note DATE: 07/04/18 TIME: 13:16 Consult Date/Type/Reason Admit Date/Time Jun 25, 2018 at 10:52 Initial Consult Date 06/26/18 Type of Consultation: Pulmonary ICU Subjective No events. Tolerated extubation. Objective Vital Signs Date Temp Pulse Resp B/P (MAP) Pulse Ox O2 O2 Flow FiO2 Time Delivery Rate 07/04/18 91 31 123/104 98 Room Air 10:00 (110) 07/04/18 98.6 08:00 07/04/18 2.0 03:43 07/03/18 30 09:10 Intake and Output 07/03/18 07/03/18 07/04/18 1515:00 23:00 07:00 IntakeIntake Total 1712.48 ml 533.8 ml OutputOutput Total 4000 ml 1275 ml 450 ml BalanceBalance -2287.52 ml -741.2 ml -450 ml Exam HEENT: Neck supple; no JVD; no LAD, + JVD CVS: RRR, S1 and S2 CHEST: Basilar rales ABD: Soft, NT, + BS EXT: ++ edema NEURO: Awake and alert. Moves all 4 extremities Results/Medications Result Diagram: 07/04/18 0440 07/04/18 0440 Results 24 hrs Laboratory Tests Test 07/04/18 04:30 07/04/18 04:40 07/04/18 05:00 Lactic Acid Level 1.0 White Blood Count 15.9 #H Red Blood Count 3.59 L Hemoglobin 11.0 L Hematocrit 31.0 L Mean Corpuscular Volume 86.4 Mean Corpuscular 30.6 Hemoglobin Mean Corpuscular 35.5 Hemoglobin Concent Red Cell Distribution 12.4 Width Platelet Count 396 Mean Platelet Volume 10.3 Immature Granulocytes % 0.900 H Neutrophils % 70.7 Lymphocytes % 17.5 Monocytes % 8.1 Eosinophils % 2.2 Basophils % 0.6 Nucleated Red Blood Cells 0.0 % Immature Granulocytes # 0.150 H Neutrophils # 11.2 H Lymphocytes # 2.8 Monocytes # 1.3 H Eosinophils # 0.4 Basophils # 0.1 Nucleated Red Blood Cells 0.0 # Sodium Level 144 Potassium Level 3.2 L Chloride Level 105 Carbon Dioxide Level 30 Anion Gap 9 # Blood Urea Nitrogen 19 Creatinine 1.06 Est Glomerular Filtrat > 60 Rate mL/min Glucose Level 108 Calcium Level 9.0 Total Bilirubin 0.5 Direct Bilirubin 0.00 Indirect Bilirubin 0.5 Aspartate Amino 135 H Transf (AST/SGOT) Alanine 166 H Aminotransferase (ALT/SGP T) Alkaline Phosphatase 113 Total Protein 6.7 # Albumin 3.6 # Globulin 3.10 Albumin/Globulin Ratio 1.16 Blood Gas Specimen Blood arterial Source Arterial Blood Date 07/04/2018 5:40:01 AM Drawn Arterial Blood pH 7.556 *H (Temp corrected) Arterial Blood pCO2 29.5 L (Temp correct) Arterial Blood pO2 106.1 H (Temp corrected) Arterial Blood HCO3 25.6 Arterial Blood Base 4.2 H Excess Arterial Blood 97.8 Oxygen Saturation Reynaldo Test ACCEPTAB Arterial Blood Gas Right Radial Puncture Site Arterial 0.3 Blood Carboxyhemoglobin Arterial Blood 0.3 Methemoglobin Blood Gas A-a O2 8.3 Differential Oxyhemoglobin Percent 97.2 Blood Gas Temperature 37.0 Blood Gas Modality ROOM AIR FiO2 21.0 Blood Gas Critical Value RMCISCO RN Read Back Blood Gas Notified Whom MA Blood Gas Notified Time 07/04/2018 5:52:55 AM Medications Current Medications Albuterol (Proventil 0.083% (Neb)) 2.5 mg Q2H RESP THERAPY PRN NEB SHORTNESS OF BREATH; Start 06/25/18 at 14:00 Acetaminophen (Tylenol Supp) 650 mg Q4H PRN [place] PAIN LEVEL 1-3 OR FEVER Last administered on 06/26/18at 04:00; Admin Dose 650 MG; Start 06/25/18 at 14:00 Piperacillin Sod/ Tazobactam Sod 100 ml @ 200 mls/hr Q8 IVPB Last administered on 07/04/18at 06:23; Admin Dose 200 MLS/HR; Start 06/25/18 at 14:00; Stop 07/04/18 at 13:59 Acetaminophen (Tylenol Liquid) 650 mg Q4H PRN GTB MILD PAIN(1-3)OR ELEVATED TEMP Last administered on 07/04/18at 00:43; Admin Dose 650 MG; Start 06/27/18 at 01:30 IV Flush (NS 10 ml) 10 ml PRN PRN IV FLUSH LINE; Start 06/28/18 at 13:00 Heparin Sodium (Porcine) (Heparin (5000 Units/1ml)) 5,000 unit BID SC Last administered on 07/04/18at 09:23; Admin Dose 5,000 UNIT; Start 06/28/18 at 21:00 Aspirin (Aspirin) 81 mg DAILY NGT Last administered on 07/04/18at 09:19; Admin Dose 81 MG; Start 06/28/18 at 16:30 Lorazepam (Ativan) 1 mg Q2H PRN GTB ANXIETY Last administered on 07/03/18at 23:00; Admin Dose 1 MG; Start 07/01/18 at 10:30 Chlordiazepoxide (Librium) 25 mg TID PO Last administered on 07/04/18at 09:19; Admin Dose 25 MG; Start 07/02/18 at 09:00; Stop 07/05/18 at 08:59 Pantoprazole (Protonix Tab) 40 mg DAILY@06 PO ; Start 07/05/18 at 06:00 Assessment/Plan Additional Assessment/Plan IMP: 1. Acute hypoxemic respiratory failure, possible pulmonary edema and aspiration 2. Polysubstance abuse with encephalopathy 3. Status post shock 4. Improving rhabdomyolysis 5. Cardiomyopathy 6. Transaminitis RECS: 1. Continue antibiotics 2. Diuresis 3. Follow I/O's 4. Mobilize PAM MCINTOSH MD Jul 04, 2018 13:22
--- NOTE | 2018-07-04 15:39 | CONS ---
Date/Time of Note Date/Time of Note DATE: 07/04/18 TIME: 15:17 Assessment/Plan Assessment/Plan Hospital Course ID PROGRESS NOTE CURRENT ABX: DAY #DAY #9 => ABX DC'd today DC Vanco IV + Zosyn + Levaquin 07/04/18 0440 07/04/18 0440 24H INTERVAL SUMMARY * A/A/O --- feels he is receiving too much Librium he would like to taper this * He is appropriately introspective, expressing repentance for substance abuse, expressing hope/guy in God's mercy/gurwinder -- expressed gratitude for his spouse saving his life and standing with him. He desires to pursue sobriety. * (+)Diarrhea on current ABX -- will taper them today * 07/04/18 CXR: IMPRESSION:1. Right-sided PICC line similar to prior. Endotracheal and nasogastric tubes have been removed.2. Patchy bilateral upper lung zone interstitial and airspace opacification compatible with edema/infiltrate. * Renal fx improved -- monitor while on ABX combo MICRO * 07/01/18 BCx (-) * 06/28/18 Respiratory Cx (-) * 06/28/18 BCx (-) * 06/27/18 (-) MRSA * 06/28/18 BCX (-) * 06/25/18 BCx (-) * 06/25/18 C.Diff (-) * 06/25/18 Urine Cx URINE CULTURE Final Organism 1 ENTEROCOCCUS SPECIES COLONY COUNT <10,000 CFU/ml ENT SPS M.I.C. RX --------- --- AMPICILLIN <=2 S CIPROFLOXACIN <=0.5 S LEVOFLOXACIN 1 S NITROFURANTOIN <=16 S PENICILLIN-G 2 S VANCOMYCIN 1 S PHYSICAL EXAMINATION: GENERAL: Afebrile, VSS, Awake, responsive, confused, anxious HEENT: AT, NC, anicteric = moist membranes NECK: Supple, trach CHEST: Equal chest rise bilaterally, without dyspnea on observation HEART: Pulse RRR ABDOMEN: Soft / NT /obese EXTREMITIES: Warm, dry, (+)generalized edema x 4 SKIN: No rash, no diaphoresis ID ASSESSMENT 37 yo M admit with: 1. Sepsis secondary to bilateral pneumonia, possibly aspiration 2. Respiratory failure 3. Enterococcal UTI 4. Acute kidney failure/rhabdomyolysis 5. Acute encephalopathy, status post drug overdose 6. Transaminitis, likely shock liver 7. Non-ST elevation DE 8. Polysubstance abuse (-)MRSA Nares ABX ALLERGIES: NKDA INVASIVES: PIC06/28/18, ETT, NGT, FC CURRENT ABX: DAY #9 => ABX DC'd today DC Vanco IV + Zosyn + Levaquin ID RECOMMENDATIONS/PLAN: Taper ABX to PO Flagyl . . Result Diagram: 07/04/18 0440 07/04/18 0440 Results 24hrs Laboratory Tests Test 07/04/18 04:30 07/04/18 04:40 07/04/18 05:00 Lactic Acid Level 1.0 White Blood Count 15.9 #H Red Blood Count 3.59 L Hemoglobin 11.0 L Hematocrit 31.0 L Mean Corpuscular Volume 86.4 Mean Corpuscular 30.6 Hemoglobin Mean Corpuscular 35.5 Hemoglobin Concent Red Cell Distribution 12.4 Width Platelet Count 396 Mean Platelet Volume 10.3 Immature Granulocytes % 0.900 H Neutrophils % 70.7 Lymphocytes % 17.5 Monocytes % 8.1 Eosinophils % 2.2 Basophils % 0.6 Nucleated Red Blood Cells 0.0 % Immature Granulocytes # 0.150 H Neutrophils # 11.2 H Lymphocytes # 2.8 Monocytes # 1.3 H Eosinophils # 0.4 Basophils # 0.1 Nucleated Red Blood Cells 0.0 # Sodium Level 144 Potassium Level 3.2 L Chloride Level 105 Carbon Dioxide Level 30 Anion Gap 9 # Blood Urea Nitrogen 19 Creatinine 1.06 Est Glomerular Filtrat > 60 Rate mL/min Glucose Level 108 Calcium Level 9.0 Total Bilirubin 0.5 Direct Bilirubin 0.00 Indirect Bilirubin 0.5 Aspartate Amino 135 H Transf (AST/SGOT) Alanine 166 H Aminotransferase (ALT/SGP T) Alkaline Phosphatase 113 Total Protein 6.7 # Albumin 3.6 # Globulin 3.10 Albumin/Globulin Ratio 1.16 Blood Gas Specimen Blood arterial Source Arterial Blood Date 07/04/2018 5:40:01 AM Drawn Arterial Blood pH 7.556 *H (Temp corrected) Arterial Blood pCO2 29.5 L (Temp correct) Arterial Blood pO2 106.1 H (Temp corrected) Arterial Blood HCO3 25.6 Arterial Blood Base 4.2 H Excess Arterial Blood 97.8 Oxygen Saturation Reynaldo Test ACCEPTAB Arterial Blood Gas Right Radial Puncture Site Arterial 0.3 Blood Carboxyhemoglobin Arterial Blood 0.3 Methemoglobin Blood Gas A-a O2 8.3 Differential Oxyhemoglobin Percent 97.2 Blood Gas Temperature 37.0 Blood Gas Modality ROOM AIR FiO2 21.0 Blood Gas Critical Value KAROLINA GILES Read Back Blood Gas Notified Whom REESE Blood Gas Notified Time 07/04/2018 5:52:55 AM Consultation Date/Type/Reason Admit Date/Time Jun 25, 2018 at 10:52 Initial Consult Date 06/26/18 Exam/Review of Systems Vital Signs Vitals Vital Signs Date Temp Pulse Resp B/P (MAP) Pulse Ox O2 O2 Flow FiO2 Time Delivery Rate 07/04/18 98.5 86 16 130/78 96 Room Air 14:35 (95) 07/04/18 2.0 03:43 07/03/18 30 09:10 Intake and Output 07/03/18 07/03/18 07/04/18 1515:00 23:00 07:00 IntakeIntake Total 1712.48 ml 533.8 ml OutputOutput Total 4000 ml 1275 ml 450 ml BalanceBalance -2287.52 ml -741.2 ml -450 ml Medications Medications Current Medications Albuterol (Proventil 0.083% (Neb)) 2.5 mg Q2H RESP THERAPY PRN NEB SHORTNESS OF BREATH; Start 06/25/18 at 14:00 Acetaminophen (Tylenol Supp) 650 mg Q4H PRN [place] PAIN LEVEL 1-3 OR FEVER Last administered on 06/26/18at 04:00; Admin Dose 650 MG; Start 06/25/18 at 14:00 Acetaminophen (Tylenol Liquid) 650 mg Q4H PRN GTB MILD PAIN(1-3)OR ELEVATED TEMP Last administered on 07/04/18at 00:43; Admin Dose 650 MG; Start 06/27/18 at 01:30 IV Flush (NS 10 ml) 10 ml PRN PRN IV FLUSH LINE; Start 06/28/18 at 13:00 Heparin Sodium (Porcine) (Heparin (5000 Units/1ml)) 5,000 unit BID SC Last administered on 07/04/18at 09:23; Admin Dose 5,000 UNIT; Start 06/28/18 at 21:00 Aspirin (Aspirin) 81 mg DAILY NGT Last administered on 07/04/18at 09:19; Admin Dose 81 MG; Start 06/28/18 at 16:30 Lorazepam (Ativan) 1 mg Q2H PRN GTB ANXIETY Last administered on 07/03/18at 23:00; Admin Dose 1 MG; Start 07/01/18 at 10:30 Chlordiazepoxide (Librium) 25 mg TID PO Last administered on 07/04/18at 09:19; Admin Dose 25 MG; Start 07/02/18 at 09:00; Stop 07/05/18 at 08:59 Pantoprazole (Protonix Tab) 40 mg DAILY@06 PO ; Start 07/05/18 at 06:00 ARMAND ROBERTSON NP Jul 04, 2018 15:35
[2018-07-04] MEDS: metroNIDAZOLE 250 MG TAB PO SCH ×2 (16:44→22:06)
--- NOTE | 2018-07-04 18:17 | NUR ---
Continuity of care downgraded from ICU, Head to toe assessment done found rashes left armpit/ inner buttocks and wound tx to consult orders for tomorrow. No sob , no acute distress with episodes of generalized weakness assisted adls W/ fww and spouse at bedside made aware pt. health conditions. On isolation to r/o CDIFF ppe used. Vs within range will continue POC
[2018-07-04] MEDS: LORAZEPAM 1 MG TAB GTB PRN (20:42)
--- NOTE | 2018-07-04 21:05 | NUR ---
pt alert,oriented x4, no sob,denies pain. pt refused skin assessment. " I am embarrassed . I will let Diomedes during the day check my skin", as verbalized by the pt. reinforced teaching regarding importance of skin assessment, pt still refused. charge nurse, Kera, made aware
[2018-07-05] MEDS: LORAZEPAM 1 MG TAB GTB PRN (02:42)
[2018-07-05 03:07] VITALS: BP 132/70; PULSE 89; RESP 16
[2018-07-05] MEDS ORDERED: PANTOPRAZOLE (EC) 40 MG TAB PO SCH (06:00)
[2018-07-05] MEDS: metroNIDAZOLE 250 MG TAB PO SCH (06:43)
--- NOTE | 2018-07-05 07:56 | NUR ---
refused hibbiclins wants to do it later and lab draw. reinforced health teaching regarding prevention of infection. charge nurse aware. endorsed to dayshift. no nausea and vomiting noted
[2018-07-05 08:00] VITALS: BP 132/82; PULSE 79; RESP 17
[2018-07-05] MEDS: HEPARIN 5,000 UNIT/1 ML VIAL SC SCH ×2 (09:00→09:12)
--- NOTE | 2018-07-05 09:08 | PN ---
DATE: 07/05/2018 SUBJECTIVE: The patient will be stable. No events overnight. No fevers, chills, nausea, or vomitin g. OBJECTIVE: VITAL SIGNS: Blood pressure is 132/82, pulse 79, respirations 17, temperature 97.9. HEENT: Head is normocephalic. NECK: Supple. HEART: Regular rate. LUNGS: Show diminished breath sounds at the base. ABDOMEN: Soft, nontender to palpation without rebound or guarding. EXTREMITIES: Negative for clubbing, cyanosis, no edema. DERMATOLOGIC: No rashes. MUSCULOSKELETAL: No joint effusion. NEUROLOGIC: No change in exam. MEDICATIONS: Reviewed. LABORATORY DATA: From 07/04/2018 was reviewed. ASSESSMENT AND PLAN: 1. Nonoliguric acute kidney injury with unknown baseline creatinine. Etiology is secondary to acute tubular necrosis due to pigment associated acute kidney injury from rhabdomyolysis, shock and nephro toxicity. The patient's renal function is improved. Continue current treatment plans, supportive ca re, renally dose all medicines. 2. Rhabdomyolysis, resolved. 3. Mineral bone disorder, monitor calcium and phosphorus levels. 4. Anemia. Continue to monitor hemoglobin and hematocrit levels. 5. Volume overload, resolved. 6. Respiratory failure, resolved. The patient is status post extubation. 7. Sepsis secondary room secondary to pneumonia. The patient is completing antibiotic course. 8. Acute encephalopathy, etiology is toxic metabolic. 9. Cardiomyopathy. Continue to monitor. 10. History of polysubstance abuse. 11. Nutrition. Continue to advance diet as tolerated. Dictated By: UMAIR VALDEZ/NTS Conf#: [id number] DID#: [id number] CC: IRVIN COLLAZO MD; JOSIAS HUANG MD;*EndCC*
[2018-07-05] MEDS: ASPIRIN 81 MG TAB NGT SCH (09:11)
[2018-07-05] MEDS ORDERED: METR250T PO (10:27)
[2018-07-05] MEDS ORDERED: ASPI-831 PO (10:27)
[2018-07-05] MEDS ORDERED: PANT40TA4 PO (10:27)
--- NOTE | 2018-07-05 10:28 | PDOCDIS ---
Discharge Instructions HOME CARE INSTRUCTIONS: [id number] Special Diet: [id number] Clear liquid OTHER ORDERS: Other Orders: 1. Drink at leat 1-1.5L of plain water daily 2. Followup with your primary doctor within the next 1-2 weeks. If you don't have one please let someone know, we can give you resources that may help you pick one. You may call Dr Collin Dawson's office. he's accepting new patients Name, Degree: Collin Dawson MD Specialty: Internal Medicine Comments: Office Address: [address] [place] [address] [place], [place] [id number] Office Office You may also call your insurance company to assign one to you. 3. Review your medication list with your nurse before leaving and if you need new prescriptions please let your nurse know. 4. I may have made changes to your home medications or given you new prescriptions, please let your primary doctor know as well. 5. Stay compliant with your medications and report any side effects to your PCP or pharmacist. 6. Return to the ER if you have any concerns and cannot reach your doctors or call your insurance company, they usually have a nurse that can help you. JOSIAS HUANG Jul 05, 2018 10:28
[2018-07-05] MEDS ORDERED: CLOT15CR TP (10:30)
[2018-07-05] MEDS ORDERED: POTASSIUM CHLORIDE (SR) 20 MEQ TAB PO STA (10:31)
--- NOTE | 2018-07-05 10:45 | NUR ---
OT EVAL: HPI per MD note: The patient is a 37 year-old male who was found unconscious on the floor in the garage by his this morning. It is unknown how long he was down on the floor . Last time she had seen him was 10pm the previous night. 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 He was noted to have drug paraphernalia laying around him. Upon arrival, paramedics noted that the patient had pinpoint pupils and administered Narcan. He then became agitated and had emesis. he is noted not to move his RUE and is severely hypothermic amongst other things. PREC: fall prec. 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 has 2 kids a 5 year old and 3 months old baby. CLOF: RN cleared pt for skilled OT tx. Pt agreeable to tx stating 0/10 pain. Pt A0x4, Vitals stable and BUE AROM WFL, RUE MMT 3+/5 and LUE MMT 4/5. Pt reports numbness and weakness in RUE. OTR provided pt with fine motor/gross motor exercises to increase strength and endurance for RUE. Patient demonstrated performing UB/LB dressing and h/g independently. Pt requires SBA with toilet transfer and functional mob using FWW. Recommendation: No further inpatient OT warranted. Patient can benefit from outpatient OT hand therapy to increase RUE strength. D/C pt home with FWW when medically cleared by .
--- NOTE | 2018-07-05 11:26 | NUR ---
PT evaluation note: S: HPI per MD note: The patient is a 37 year-old male who was found unconscious on the floor in the garage by his this morning. It is unknown how long he was down on the floor . Last time she had seen him was 10pm the previous night. 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 He was noted to have drug paraphernalia laying around him. Upon arrival, paramedics noted that the patient had pinpoint pupils and administered Narcan. He then became agitated and had emesis. he is noted not to move his RUE and is severely hypothermic amongst other things. PREC: fall prec. 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 has 2 kids a 5 year old and 3 months old baby. MD order received for PT consult, pt agreeable to participate, C/O weakness on R UE and some numbness, has been going to rest room using FWW or holds on furniture when not using walker. Per nursing pt pending DC today CLOF: Patient independent with bed mobility, SBA with transfers and ambulation using FWW, occasional wavering when walked without AD needed CGA, BLE 5/5 however noted decreased balance when OOB. Overall still fall risk when speeding up. Patient educ on slow pacing, control and continue use of FWW until balance improved. Per pt can assist in bringing pt to clinic for PT. A: Patient can benefit from out patient PT for strengthening/balancing exercises to improve mobility, balance and safety. Will need FWW for home use. P: DC to nursing for general care and ambulation using FWW and with assist for balance and safety.
--- NOTE | 2018-07-05 12:03 | CONS ---
Assessment/Plan Assessment/Plan Hospital Course Assessment/Plan A: 37 M c/ reported Hx of recreational drug abuse...who presents for evaluation of ams, after being found unconscious in his garage by his . Clinically consistent w/ an acute toxic encephalopathy.. Superimposed stroke is less likely. Seizure is unlikely.. Head CT is unrevealing. P: OK to defer MRI brain for now. Obtain MRI if exam should change. Medical management and supportive care per primary Will follow clinically Result Diagram: 07/04/18 0440 07/05/18 0849 Results 24hrs Laboratory Tests Test 07/04/18 16:20 07/05/18 08:49 Urine Opiates Screen Negative Urine Barbiturates Negative Urine Amphetamines Screen Negative Urine Benzodiazepines Screen Positive Urine Cocaine Screen Negative Urine Cannabinoids Negative Sodium Level 145 H Potassium Level 3.2 L Chloride Level 104 Carbon Dioxide Level 29 Anion Gap 12 Blood Urea Nitrogen 15 Creatinine 0.94 Est Glomerular Filtrat Rate mL/min > 60 Glucose Level 125 Calcium Level 9.0 Magnesium Level 2.0 Consultation Date/Type/Reason Admit Date/Time Jun 25, 2018 at 10:52 Type of Consult Neurology Reason for Consultation ams Date/Time of Note DATE: 07/05/18 TIME: 12:03 24 HR Interval Summary Free Text/Dictation Continues medsurg monitoring. Pt states that he is feeling much better today. Awaiting discharge. Exam Vital Signs Vitals Vital Signs Date Temp Pulse Resp B/P (MAP) Pulse Ox O2 O2 Flow FiO2 Time Delivery Rate 07/05/18 97.9 79 17 132/82 98 Room Air 08:00 (99) 07/04/18 21 20:16 07/04/18 2.0 03:43 Intake and Output 07/04/18 07/04/18 07/05/18 1515:00 23:00 07:00 IntakeIntake Total 300 ml 350 ml 500 ml OutputOutput Total 200 ml 850 ml BalanceBalance 100 ml 350 ml -350 ml Exam PE: Gen Appearance: No Apparent Distress HEENT: Normocephalic Cardiovascular: Regular rate Lungs: Clear bilaterally Abdomen: Soft Extremities: Dry NE: The patient was alert and oriented to self, place, and situation. Language was normal. Fund of knowledge was normal. Pupils were equal and reactive to light. There was no afferent pupillary defect. Visual nickerson were normal. Funduscopic examination was limited. Extra-ocular movements were full. Ptosis was absent. There was no nystagmus. Facial sensation was normal. Face was symmetric with normal strength. Hearing was intact. Palate movements were normal. Neck strength was normal. There was normal tongue bulk and speed of movement. Tone was normal. Muscle bulk was normal. I did not see fasciculations. Arms and legs were mildly weak and symmetric. Vibration sensation was normal. Temperature and pinprick sensation was normal. Rapid alternating movements were normal. There was no dysmetria. There was no intention tremor. Gait was deferred due to bedrest. Arm and leg reflexes were 2+ and symmetric. Milian's sign was absent. Plantar responses were flexor. KM CH NP Jul 05, 2018 12:03 EUGENIA VILLEGAS Jul 05, 2018 20:34
--- NOTE | 2018-07-05 12:11 | NUR ---
WOUND CONSULT FOR RASHES @1000: Attempted for skin assessment. Patient in the bathroom and unavailable at this time. Assessment and recommendations based on photo documentation. Armpits and bilateral inner buttocks fungal rashes. Recommended antifungal powder or cream to affected area. Spoke with Dr. Walton regarding above recommendation. aware. Discussed plan of care with RN, Georgie. Teresa Nichols BSN RN CWOCN
--- NOTE | 2018-07-05 12:12 | NUR ---
Pt. will be discharge home at this time , no sob no acute distress and denies any pain discomfort. All discharge instructions provided to pt/ spouse and able to understand well, VS within range endorsed
--- NOTE | 2018-07-05 12:28 | NUR ---
ORDER FOR HH SERVICE OT/PT FAXED TO DIMIT[facility] [phone], LEFT MESSAGE TO TEL # [phone] FWW PROVIDED BY [facility] DELIVERED 07/05/18 Addendum: 07/05/18 at 1232 by RYAN ROBBINS CM Amended: Links added. Addendum: 07/05/18 at 1645 by RYAN RECIOOT CM SPOKE TO FRANCISCO JAVIER. REFERRED TO [facility] WHICH CLOSED AT THIS TIME, REFERRED TO [facility] AND FAXED INFORMATION. SPOKE TO [facility] UNABLE TO TAKE PATIENT BECAUSE THEY HAVE NO PT TILL SECOND July. Addendum: 07/05/18 at 1646 by RYAN ROBBINS CM WILL ENDORSE TO JOSE PATRICK
--- NOTE | 2018-07-05 16:00 | DS ---
DATE OF ADMISSION: 06/25/2018 DATE OF DISCHARGE: 07/05/2018 PRESENTING COMPLAINT: Altered mentation. The patient was found unresponsive in front of his home ga rage. It is unclear how long he had been out. He was also found to be hypothermic on arrival with t emperature of 97.2, which dropped to 85.0. FINAL DIAGNOSES: A 37-year-old male who was found unresponsive outside his home garage, who was jeremie alston as follows: 1. Acute toxic metabolic encephalopathy with evidence of multiple substances including cocaine, maya odiazepines and THC in his urine. He has mild residual right upper extremity weakness. - Acute cerebrovascular accident was never confirmed with MRI. The patient declined this procedure, requesting instead to be discharged home after risks and benefits were discussed. 2. Status post acute respiratory failure, status post ventilator dependence, successfully extubated and now on room air back to normal. 3. Acute renal failure, resolved. 4. Sepsis with bilateral pneumonia, urinary tract infection, likely secondary to aspiration and like ly sequelae of encephalopathy. 5. Metabolic acidosis secondary to renal failure that has resolved. 6. Rhabdomyolysis: Improved. 7. Elevated troponins versus non-ST elevation myocardial infarction, stable on aspirin therapy. Ech o showed left ventricular ejection fraction of 40% with global hypokinesis. The patient was cleared for discharge for coronary evaluation outpatient as per his primary care physician's discretion. 8. Severe hypothermia, resolved. 9. Status post transient epistaxis on arrival. 10. Kerry infection in buttocks fold. DISPOSITION: To home with home health for physical as well as occupational therapy and nursing asses sment. ACTIVITY: As tolerated. DISCHARGE MEDICATIONS: For complete list of discharge medications, please review discharge medicatio n list. Of note, the patient completed antibiotic therapy in-house for pneumonia, but developed diar gifty that was negative for C. diff. The patient was maintained on metronidazole for ____. DISCHARGE ACTIVITIES: As tolerated. FOLLOWUP: The patient was advised to follow up with his primary care doctor within the next 1 to 2 w eeks. SHORT HOSPITALIZATION COURSE: A pleasant 37-year-old male who was initially found unconscious in fro nt of his garage by a neighbor who then called for his . The patient's neighbor and perform ed CPR until EMS got there. He was found to be unresponsive, hypothermic on arrival and multiple sub stances in his urine drug screen as summarized above. He was emergently intubated and ventilator sup port in the intensive care unit. It took a while to extubate him and I think this is likely because the patient also ____ withdrawal episode while on ventilator support and sedated, but eventually was successfully extubated and has done well post-extubation. He was also found to have a urinary tract infection as well as pneumonia secondary to aspiration and was treated with antibiotics. He has done well. Initially, he did have right upper extremity paresis, but this time, he is completely able to move his right upper extremity still with a little bit of weakness. He states that the arm is slow to respond. He has been seen by occupational therapy and will continue OT outpatient. The patient i s anxious to be discharged at this time and I have offered him an MRI of the brain to ensure he had n o acute cerebral insult causing his right upper extremity paresis, but he has declined that at this t vee after noting that it will not change the management either way. He states he can always get this done as outpatient if necessary. Overall, he has been evaluated in detail and is stable for dischar ge. Time spent on discharge coordination has been more than 1 hour. Dictated By: JOSIAS UHANG MD BA/MELODY Conf#: [id number] DID#: [id number] CC: IRVIN COLLAZO MD;*EndCC*
== END 2018-07-05 12:15 | disposition home health service (06) | DRG 870 ==
LOC: EDBD 08:10 → E/R 08:10 → ICU 10:52 → PP2 07-04 10:57
PROVIDERS: ADMIT Family Medicine; ATTEND Family Medicine
PROC: 5A1955Z Respiratory Ventilation, Greater than 96 Consecutive Hours (ICD-10-PCS; principal; 2018-06-25)
PROC: 0BH17EZ Insertion of Endotracheal Airway into Trachea, Via Natural or Artificial Opening (ICD-10-PCS; 2018-06-25)
PROC: 02HV33Z Insertion of Infusion Device into Superior Vena Cava, Percutaneous Approach (ICD-10-PCS; 2018-06-28)
DX: A41.9 Sepsis, unspecified organism (principal); I21.A1 Myocardial infarction type 2; J69.0 Pneumonitis due to inhalation of food and vomit; K72.00 Acute and subacute hepatic failure without coma; N17.0 Acute kidney failure with tubular necrosis; J96.02 Acute respiratory failure with hypercapnia; J96.01 Acute respiratory failure with hypoxia; G92 Toxic encephalopathy; N17.9 Acute kidney failure, unspecified; M62.82 Rhabdomyolysis; I42.9 Cardiomyopathy, unspecified; E87.4 Mixed disorder of acid-base balance; N39.0 Urinary tract infection, site not specified; F19.10 Other psychoactive substance abuse, uncomplicated; T68.XXXA Hypothermia, initial encounter; R65.20 Severe sepsis without septic shock; R04.0 Epistaxis; D64.9 Anemia, unspecified; E83.9 Disorder of mineral metabolism, unspecified; R45.1 Restlessness and agitation; B95.2 Enterococcus as the cause of diseases classified elsewhere; N18.9 Chronic kidney disease, unspecified; E87.5 Hyperkalemia; B37.2 Candidiasis of skin and nail
CPT/HCPCS: 36415; 36569; 36600; 70450; 71045; 76775; 76937; 80048; 80053; 80076; 80202; 80307; 81001; 81003; 82043; 82330; 82550; 82553; 82803; 82962; 83036; 83605; 83735; 84100; 84155; 84300; 84484; 85025; 85610; 85730; 86038; 86255; 86703; 86709; 86803; 87040; 87070; 87075; 87081; 87086; 87340; 93005; 93306; 94002; 94003; 94664; 94770; 96374; 96375; 96376; 97161; 97167; C9113; J1170; J1644; J1940; J1953; J1956; J2060; J2250; J2310; J2405; J2543; J3010; J3370; J7030; J7050; J7121